=== PATIENT | female | born 1970 | race Caucasian/White ===

== ENCOUNTER 2016-12-31 16:07 | Emergency (ER) | payer OTHER ==
[2016-12-31 16:33] VITALS: O2SAT 96
--- NOTE | 2016-12-31 16:52 | ERPHSYRPT ---
- History of Present Illness Source: patient Exam Limitations: clinical condition Patient Subjective Stated Complaint: "i twisted funny yesterday. i have been having more pain since. i had an mri done last week. i have been trying to work things out with my pain drLeyla" Triage Nursing Assessment: aox3, breathing easy unalbored,skin pink warm dry, slow limping gait noted, +2 bilat pedal pulses, <3 cap refill, Physician History: Patient with history of chronic low-back pain twisted over the past couple days with severe pain shooting down her right buttocks lower back area into her leg and ankle with difficulty ambulating. Patient is already seen by pain management Dr. Guillaume in [facility]. MRI completed yesterday at our hospital with findings of new L4-5 large extradural defect with nerve root impingement which certainly explains her radicular symptomatology on the right side. No loss of bowel or bladder control. Timing/Duration: today, yesterday, worse Method of Injury: twisted Quality: burning, radiating, sharp, aching, cramping, stabbing Back Pain Location: lumbar spine, paraspinous muscles Back Pain Radiation: buttocks, lower legs, feet Severity of Pain-Max: severe Severity of Pain-Current: severe Modifying Factors: Improves With: immobilization, movement Associated Symptoms: weakness, tingling in legs/feet, lower back pain, muscle spasms, No urinary incontinence, No loss of bowel control, No problems urinating , No light-headedness, No sensory/motor loss Previous symptoms: same symptoms as today (but not as severe) Allergies/Adverse Reactions: Sulfa (Sulfonamide Antibiotics) [Sulfa(Sulfonamide Antibiotics)] Allergy (Mild, Verified 12/31/16 16:21) Home Medications: Duloxetine HCl 30 mg [Cymbalta 30 MG Capsule] 60 mg PO DAILY 01/17/16 [ History] Lisinopril 10 mg [Zestril 10 MG] 20 mg PO DAILY 04/20/16 [History] Alprazolam 0.25 mg [xanAX 0.25 MG] 0.25 mg PO PRN 10/15/16 [History] Fexofenadine HCl [Leanna] 1 tab PO DAILY 10/15/16 [History] Ibuprofen 800 mg PO TID 10/15/16 [History] Oxycodone HCl [Oxycodone HCl ER] 30 mg PO BID 10/15/16 [History] Pregabalin [Lyrica 150Mg] 1 tab PO TID 10/15/16 [History] Diclofenac Sodium 75 mg PO BID 12/31/16 [History] Duloxetine HCl 30 mg [Cymbalta 30 MG Capsule] 60 mg PO DAILY 12/31/16 [ History] Folic Acid 800 mcg PO BID 12/31/16 [History] Oxycodone HCl 15 mg PO QID 12/31/16 [History] Hx Tetanus, Diphtheria Vaccination/Date Given: No Hx Influenza Vaccination/Date Given: Yes Hx Pneumococcal Vaccination/Date Given: No - Review of Systems Constitutional: No Symptoms Eyes: No Symptoms Ears, Nose, & Throat: No Symptoms Respiratory: No Symptoms Cardiac: No Symptoms Abdominal/Gastrointestinal: No Symptoms Genitourinary Symptoms: No Symptoms Musculoskeletal: Back Pain Skin: No Symptoms Neurological: Parasthesia Psychological: No Symptoms Endocrine: No Symptoms Hematologic/Lymphatic: No Symptoms Immunological/Allergic: No Symptoms All Other Systems: Reviewed and Negative - Past Medical History Pertinent Past Medical History: Yes Neurological History: Migraines ENT History: No Pertinent History Cardiac History: No Pertinent History Respiratory History: No Pertinent History Endocrine Medical History: No Pertinent History Musculoskeletal History: Fibromyalgia, Osteoarthritis GI Medical History: No Pertinent History History: No Pertinent History Psycho-Social History: Anxiety, Attention Deficit Disorder, Depression Female Reproductive Disorders: No Pertinent History Other Medical History: major depressive d/o, adha, ptsd, anixiety - Past Surgical History Past Surgical History: Yes Neuro Surgical History: No Pertinent History Cardiac: No Pertinent History Respiratory: No Pertinent History Gastrointestinal: No Pertinent History Genitourinary: No Pertinent History Musculoskeletal: No Pertinent History Female Surgical History: No Pertinent History Other Surgical History: D&C, Tonsillectomy - Social History Smoking Status: Current every day smoker How long have you smoked: 19 yrs Exposure to second hand smoke: No Drug Use: none Patient Lives Alone: No - Female History Hx Last Menstrual Period: 3 week ago - Nursing Vital Signs Temperature: 98.2 F Temperature Source: Oral Pulse Rate: 103 Respiratory Rate: 18 Pain Intensity: 8 - Physical Exam General Appearance: moderate distress, alert, anxiety Eye Exam: PERRL/EOMI Ears, Nose, Throat Exam: normal ENT inspection Neck Exam: normal inspection, non-tender, supple Respiratory Exam: normal breath sounds, chest tenderness Cardiovascular Exam: regular rate/rhythm, normal heart sounds, normal peripheral pulses Gastrointestinal Exam: soft, normal bowel sounds (WITH DIALYSIS MORE), tenderness Pelvic Exam: not done Rectal Exam: deferred Back Exam: vertebral tenderness (RIGHT LUMBAR), decreased range of motion ( rIGHT LUMBOSACRAL), muscle spasm (RIGHT LUMBOSACRAL), point tenderness (RIGHT LUMBOSACRAL) Extremity Exam: parasthesia, other (MARKEDLY POSITIVE STRAIGHT LEG RAISI AT 15 DEGREES WITH MARKEDLY POSITIVE LASQUE SIGN ON RIGHT, MARKEDLY PALPABLE TENDERNESS RIGHT GLUTEAL AREA LOWER LUMBAR AREA THROUGH THE THIGH AREA) Neurologic Exam: alert, oriented x 3, cooperative, sensation nml, motor deficits (DETERMINED REFLEXES ON THE RIGHT +1/4 RIGHT AND 2 OVER 4 LEFT LOWER EXTREMITIES) Skin Exam: normal color, warm, dry Lymphatic Exam: No adenopathy SpO2 Interpretation: normal SpO2: 96 Oxygen Delivery: Room Air Ordered Tests: Medication Summary Discontinued Medications Generic Name Dose Route Start Last Admin Trade Name Remi PRN Reason Stop Dose Admin Dexamethasone Sodium Phosphate 10 mg 12/31/16 16:53 12/31/16 17:02 Decadron 10mg Inj. IM 12/31/16 16:54 10 mg STAT ONE Administration Dexamethasone Sodium Phosphate Confirm 12/31/16 16:59 Decadron 10mg Inj. Administered 12/31/16 17:00 Dose 10 mg .ROUTE .STK-MED ONE Oxycodone/Acetaminophen 1 tab 12/31/16 16:56 12/31/16 17:01 Oxycodone-Acetaminophen 10-325 PO 12/31/16 16:57 1 tab STAT STA Administration Oxycodone/Acetaminophen Confirm 12/31/16 16:59 Oxycodone-Acetaminophen 10-325 Administered 12/31/16 17:00 Dose 1 tab .ROUTE .STK-MED ONE - Progress Progress: unchanged Progress Note: 12/31/16 20:37Reviewed MRI lumbar spine from yesterday with L4-5 right marked defect probable herniated disc which is a new finding for her and she is referred back to medical provider and/or pain management for further evaluation and treatment as her symptomatology is apparently becoming much worse and is documented on MRI as to the etiology at this time. Counseled pt/family regarding: diagnosis, need for follow-up, rad results - Departure Time of Disposition: 17:08 Departure Disposition: Home Clinical Impression: Subacute right lumbar radiculopathy, Herniated nucleus pulposus, L4-5 right Condition: Fair Critical Care Time: No Referrals: CELESTINE BERNARD [Primary Care Provider] - 01/01/17 Instructions: Low Back Pain, Back Pain With Sciatica Additional Instructions: You have a serious pinched nerve in her low back between L4-5 causing pain in the low back area on the right with radiation down the leg. Please follow-up with your primary care doctor Lara or pain management physician as soon as possible for further evaluation and treatment. Return to emergency room for loss of bowel or bladder control new severe weakness in your right leg fever chills or any significant concerns or issues.
[2016-12-31] MEDS ORDERED: DECADRON 10MG INJ. IM ONE (16:53)
[2016-12-31] MEDS ORDERED: OXYCODONE-ACETAMINOPHEN 10-325 PO STA (16:56)
[2016-12-31] MEDS ORDERED: DECADRON 10MG INJ. ONE (16:59)
[2016-12-31] MEDS ORDERED: OXYCODONE-ACETAMINOPHEN 10-325 ONE (16:59)
[2016-12-31 17:07] VITALS: BP 168/98
[2016-12-31 17:10] VITALS: PULSE 103
== END 2016-12-31 17:45 | disposition home or self-care (01) ==
LOC: ED 16:07
DX: M54.16 Radiculopathy, lumbar region (principal); M51.26 Other intervertebral disc displacement, lumbar region; M54.5 Low back pain; G89.29 Other chronic pain; X50.9XXA Other and unspecified overexertion or strenuous movements or postures, initial encounter
CPT/HCPCS: 96372; 99283; 99284; J1100

== ENCOUNTER 2017-01-29 18:34 | Emergency (ER) | payer OTHER ==
[2017-01-29] MEDS ORDERED: TORAdol 30 mg Injection IM ONE (19:28)
[2017-01-29] MEDS ORDERED: TORAdol 30 mg Injection ONE (19:33)
--- NOTE | 2017-01-29 19:34 | ERPHSYRPT ---
- History of Present Illness Time Seen by Provider: 01/29/17 19:27 Source: patient Exam Limitations: no limitations Patient Subjective Stated Complaint: pt oc chronic back pain to lower back. she sees a pain dr, and is out of break through pain medication Triage Nursing Assessment: pt denies any injury, no brusing or abrasions to back ,. pt walked in bent over, moves all ext Physician History: 46 year old white female arrives with complaint of ran out of break through medicine for chronic pain states pain right low lumbar area for 2 years no change in pain, no injuries, on fentanil oxycontin and oxycodone for pain ran out of oxycodone wearing fentanyl patch now. Timing/Duration: other (for 2 yearsran out of break through pain med) Method of Injury: unknown Quality: aching Back Pain Location: lumbar spine Severity of Pain-Max: moderate Severity of Pain-Current: moderate Modifying Factors: Improves With: nothing Associated Symptoms: lower back pain, No fever, No chills, No sweating, No urinary incontinence, No loss of bowel control, No constipation, No nausea, No vomiting, No problems urinating, No light-headedness, No dizziness, No numbness in legs/feet, No weakness, No sensory/motor loss, No tingling in legs/feet Allergies/Adverse Reactions: Sulfa (Sulfonamide Antibiotics) [Sulfa(Sulfonamide Antibiotics)] Allergy (Mild, Verified 01/29/17 18:41) Home Medications: Lisinopril 10 mg [Zestril 10 MG] 20 mg PO DAILY 04/20/16 [History] Alprazolam 0.25 mg [xanAX 0.25 MG] 0.25 mg PO DAILY 10/15/16 [History] Fexofenadine HCl [Leanna] 1 tab PO DAILY 10/15/16 [History] Ibuprofen 800 mg PO TID 10/15/16 [History] Oxycodone HCl [Oxycodone HCl ER] 30 mg PO BID 10/15/16 [History] Pregabalin [Lyrica 150Mg] 1 tab PO TID 10/15/16 [History] Diclofenac Sodium 75 mg PO BID 12/31/16 [History] Duloxetine HCl 30 mg [Cymbalta 30 MG Capsule] 60 mg PO DAILY 12/31/16 [ History] Folic Acid 800 mcg PO BID 12/31/16 [History] Oxycodone HCl 15 mg PO QID 12/31/16 [History] Fentanyl 1 ea 2XW 01/29/17 [History] Hx Tetanus, Diphtheria Vaccination/Date Given: No Hx Influenza Vaccination/Date Given: Yes Hx Pneumococcal Vaccination/Date Given: No Immunizations Up to Date: Yes - Review of Systems Constitutional: No Fever, No Chills Eyes: No Symptoms Ears, Nose, & Throat: No Symptoms Respiratory: No Cough, No Dyspnea Cardiac: No Chest Pain, No Edema, No Syncope Abdominal/Gastrointestinal: No Abdominal Pain, No Nausea, No Vomiting, No Diarrhea Genitourinary Symptoms: No Dysuria Musculoskeletal: Back Pain, No Neck Pain Skin: No Rash Neurological: No Dizziness, No Focal Weakness, No Sensory Changes Psychological: No Symptoms Endocrine: No Symptoms All Other Systems: Reviewed and Negative - Past Medical History Pertinent Past Medical History: Yes Neurological History: Migraines ENT History: No Pertinent History Cardiac History: No Pertinent History Respiratory History: No Pertinent History Endocrine Medical History: No Pertinent History Musculoskeletal History: Fibromyalgia, Osteoarthritis, Other GI Medical History: No Pertinent History History: No Pertinent History Psycho-Social History: Anxiety, Attention Deficit Disorder, Depression Female Reproductive Disorders: No Pertinent History Other Medical History: major depressive d/o, adha, ptsd, anixiety,chronic back pain - Past Surgical History Past Surgical History: Yes Neuro Surgical History: No Pertinent History Cardiac: No Pertinent History Respiratory: No Pertinent History Gastrointestinal: No Pertinent History Genitourinary: No Pertinent History Musculoskeletal: No Pertinent History Female Surgical History: No Pertinent History Other Surgical History: D&C, Tonsillectomy - Social History Smoking Status: Current some day smoker How long have you smoked: 19 yrs Exposure to second hand smoke: Yes Drug Use: none Patient Lives Alone: No - Female History Hx Last Menstrual Period: week ago - Nursing Vital Signs Temperature: 98.5 F Temperature Source: Oral Pulse Rate: 117 Respiratory Rate: 16 Pain Intensity: 8 - Physical Exam General Appearance: mild distress Eye Exam: PERRL/EOMI, eyes nml inspection Ears, Nose, Throat Exam: normal ENT inspection, TMs normal, pharynx normal, moist mucous membranes, No dry mucous membranes, No TM abnormal (R), No TM abnormal (L) Neck Exam: normal inspection, non-tender, supple, full range of motion, No meningismus, No midline tenderness Respiratory Exam: normal breath sounds, lungs clear, No respiratory distress Cardiovascular Exam: regular rate/rhythm, normal heart sounds Gastrointestinal Exam: soft, No tenderness, No mass Back Exam: other (tender with palpation right low lumbar area, able to sit with knees extended and hips flexed without problems) Extremity Exam: normal inspection, normal range of motion, No calf tenderness, No pedal edema Peripheral Pulses: dorsalis-pedis (R): 2+, dorsalis-pedis (L): 2+ Neurologic Exam: alert, oriented x 3, cooperative, 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 as tested, normal mood/affect, nml station & gait, sensation nml, No motor deficits Skin Exam: normal color, warm, dry, No rash SpO2 Interpretation: normal (98%) SpO2: 98 Oxygen Delivery: CPAP - Course Nursing assessment & vital signs reviewed: Yes Ordered Tests: Medication Summary Discontinued Medications Generic Name Dose Route Start Last Admin Trade Name Remi PRN Reason Stop Dose Admin Ketorolac Tromethamine 60 mg 01/29/17 19:28 01/29/17 19:34 Toradol 30 Mg Injection IM 01/29/17 19:29 60 mg STAT ONE Administration Ketorolac Tromethamine Confirm 01/29/17 19:33 Toradol 30 Mg Injection Administered 01/29/17 19:34 Dose 60 mg .ROUTE .STK-MED ONE - Progress Progress: improved Progress Note: 01/29/17 19:38 This is a 46-year-old white female history of chronic back pain who states she has degenerative disc disease she states she has had pain in her back for 2 years this is not changed she states she has been talked to by a back pain specialist who has recommended surgery but she does not want to have this done she sees a pain commercial pest control technician. She states that she is here because she ran out of her breakthrough pain medication. Patient has not had any injuries she states she just use more of her breakthrough pain medication than she normally should. She has pain in her right low lumbar region radiating to her right bladder oxycodone denies any fever she is not having any neurologic changes she is able to sit with her hips flexed and her knees extended without pain. She tells me that she contacted her pain medicine specialist who is in [place] and he recommended she go to the emergency room for treatment. On physical examination patient is tender in the right lumbar region with palpation. Patient has a fentanyl patch in place. Inspect report is reviewed on January 26, 2017 patient received OxyContin 30 mg tablet #60 on January 20, 2017 patient received fentanyl 50 g patch per hour # 5 patches on January 08, 2017 patient received Xanax 0.25 mg tablet #30 on January 05 patient received oxycodone 15 mg tablet #120 on January 04 patient received oxycodone 10/325 #15 on January 01 patient received Lyrica 150 mg capsules #90 on December 30 patient received OxyContin 30 mg tablets #60 patient appears to have been receiving pain medication on a regular basis. I am uncomfortable providing this patient with more narcotic analgesia. I told patient I could give her 1 Percocet tablet or Toradol 60 mg IM and have patient follow-up with her pain commercial pest control technician or her family doctor Patient states she has fentanyl patches which are remaining she also has OxyContin tablets she states she has taken all her oxycodone however she received 120 these on January 05, 2017 which should have lasted her 30 days. - Departure Time of Disposition: 19:42 Departure Disposition: Home Clinical Impression: History of degenerative disc disease Chronic back pain Qualifiers: Back pain location: low back pain Back pain laterality: right Sciatica presence : unspecified whether sciatica present Qualified Code(s): M54.5 - Low back pain Condition: Fair Critical Care Time: No Referrals: CELESTINE BERNARD [Primary Care Provider] - Instructions: Low Back Pain Additional Instructions: Return home. Rest. Follow-up with your family doctor or your pain commercial pest control technician. Return for acute distress or for severe symptoms Narcotic analgesia as provided by your pain commercial pest control technician other medications as provided by your family doctor or your pain commercial pest control technician.
[2017-01-29 19:40] VITALS: BP 162/96
[2017-01-29 19:43] VITALS: PULSE 117; O2SAT 98
== END 2017-01-29 20:00 | disposition home or self-care (01) ==
LOC: ED 18:34
DX: M54.5 Low back pain (principal); M51.36 Other intervertebral disc degeneration, lumbar region
CPT/HCPCS: 96372; 99284; J1885

== ENCOUNTER 2017-04-24 18:44 | Emergency (ER) | payer OTHER ==
[2017-04-24 19:00] VITALS: BP 149/88
[2017-04-24] MEDS ORDERED: KEFLEX 500 MG PO ONE (19:25)
[2017-04-24] MEDS ORDERED: KEFLEX 500 MG ONE (19:29)
--- NOTE | 2017-04-24 19:33 | ERPHSYRPT ---
- History of Present Illness Time Seen by Provider: 04/24/17 19:15 Source: patient Exam Limitations: clinical condition Patient Subjective Stated Complaint: Pt is here for wound check of incision. States she had back surgery three weeks ago and thinks the incision is infected. She is having a lot of incisional pain and it has had a thick, whitish/yellow drainage the last couple of days. States it is sometimes hot to touch. Triage Nursing Assessment: Pt alert and oriented x3. skin pink warm and dry. afebrile. incision noted to lower back. dried drainage noted. erythema noted to upper portion Physician History: PATIENT IS 3 WEEKS POST OPERATIVE LUMBAR SPINAL FUSION, HAS NOTED DRAINAGE FROM INCISIONAL SITE. PATIENT HAS CHRONIC BACK PAIN, DENIES FEVER, CHILLS, NIGHTSWEATS, NUMBNESS, TINGLING OR WEAKNESS IN EXTREMITIES. Timing/Duration: day(s) Severity: mild Associated Symptoms: other (DRAINAGE FROM INCISIONAL WOUND) Allergies/Adverse Reactions: No Known Drug Allergies Allergy (Unverified 04/24/17 19:01) Home Medications: Lisinopril 10 mg [Zestril 10 MG] 20 mg PO DAILY 04/20/16 [History] Fexofenadine HCl [Leanna] 1 tab PO DAILY 10/15/16 [History] Ibuprofen 800 mg PO TID 10/15/16 [History] Oxycodone HCl [Oxycodone HCl ER] 40 mg PO BID 10/15/16 [History] Pregabalin [Lyrica 150Mg] 1 tab PO TID 10/15/16 [History] Duloxetine HCl 30 mg [Cymbalta 30 MG Capsule] 90 mg PO DAILY 12/31/16 [ History] Folic Acid 800 mcg PO BID 12/31/16 [History] Oxycodone HCl 20 mg PO QID 12/31/16 [History] Diazepam 5 mg [Valium 5 MG] 5 mg PO BID 04/24/17 [History] Hx Tetanus, Diphtheria Vaccination/Date Given: Yes Hx Influenza Vaccination/Date Given: Yes Hx Pneumococcal Vaccination/Date Given: No - Review of Systems Constitutional: No Symptoms Musculoskeletal: Back Pain, Other (INCISIONAL WOUND DRAINAGE) Neurological: No Symptoms Endocrine: No Symptoms - Past Medical History Pertinent Past Medical History: Yes Neurological History: Migraines ENT History: No Pertinent History Cardiac History: No Pertinent History Respiratory History: No Pertinent History Endocrine Medical History: No Pertinent History Musculoskeletal History: Fibromyalgia, Osteoarthritis, Other GI Medical History: No Pertinent History History: No Pertinent History Psycho-Social History: Anxiety, Attention Deficit Disorder, Depression Female Reproductive Disorders: No Pertinent History Other Medical History: major depressive d/o, adha, ptsd, anixiety,chronic back pain, ruptured disc, synovial cyst - Past Surgical History Past Surgical History: Yes Neuro Surgical History: No Pertinent History Cardiac: No Pertinent History Respiratory: No Pertinent History Gastrointestinal: No Pertinent History Genitourinary: No Pertinent History Musculoskeletal: Orthopedic Surgery Female Surgical History: Dilation & Curettage Other Surgical History: lumbar spinal fusion, synovial cyst removed - Social History Smoking Status: Current some day smoker How long have you smoked: 19 yrs Exposure to second hand smoke: Yes Drug Use: none Patient Lives Alone: Yes - Female History Hx Last Menstrual Period: February 2017 - Nursing Vital Signs Nursing Vital Signs: Initial Vital Signs Temperature 98.3 F Temperature Source Oral Pulse Rate 94 Blood Pressure [Right Arm] 149/88 Pain Intensity 7 - Physical Exam General Appearance: no apparent distress, alert Respiratory Exam: No respiratory distress Gastrointestinal/Abdomen Exam: No tenderness, No mass Back Exam: normal inspection, normal range of motion, other (LUMBAR INCISIONAL EDGES INTACT NO ERYTHEMA, THERE IS DRIED CRUSTY EXUDATE ALONG INCISIONAL SITE, NO OPEN SITES OR DRAINAGE ALONG INCISIONAL WOUND), No CVA tenderness, No vertebral tenderness (THERE IS SLIGHT ERYTHEMA NOTED OVER SUPERIOR ASPECT OF INCISIONAL WOUND) Neurologic Exam: alert, oriented x 3, cooperative, normal mood/affect, nml cerebellar function, nml station & gait, sensation nml, No motor deficits Skin Exam: normal color, warm, dry, No rash Lymphatic Exam: No adenopathy SpO2 Interpretation: normal SpO2: 94 Oxygen Delivery: Room Air Ordered Tests: Active Orders 24 hr Category Date Time Status CULTURE,WOUND Stat Lab 04/24/17 19:26 Uncollected Medication Summary Generic Name Dose Route Start Last Admin Trade Name Freq PRN Reason Stop Dose Admin Cephalexin HCl 500 mg 04/24/17 19:25 Keflex 500 Mg PO 04/24/17 19:26 STAT ONE - Progress Progress Note: 04/24/17 19:37 WOUND CULTURE SENT, HOWEVER THERE WAS NO EVIDENCE OF DRAINAGE Counseled pt/family regarding: diagnosis, need for follow-up - Departure Time of Disposition: 19:40 Departure Disposition: Home Clinical Impression: LUMBAR INCISIONAL WOUND/EARLY CELLULITIS Condition: Stable Critical Care Time: No Additional Instructions: ANTIBIOTIC KEFLEX 500MG EVERY 6 HOURS FOR 10 DAYS. CHECK FOR FEVER THROUGHOUT THE DAY. CALL YOUR SPINAL SURGEON FOR EARLIER APPOINTMENT. RETURN TO EMERGENCY FOR ONSET OF FEVER OR CHILLS. Prescriptions: Cephalexin Mh 500 mg [Keflex 500 mg] 500 mg PO QID #40 capsule
[2017-04-24 19:56] VITALS: PULSE 88; O2SAT 97
== END 2017-04-24 19:54 | disposition home or self-care (01) ==
LOC: ED 18:44
DX: T81.4XXA Infection following a procedure, initial encounter (principal); L03.312 Cellulitis of back [any part except buttock and flank]
CPT/HCPCS: 87070; 99283; A9270-GY

== ENCOUNTER 2017-06-15 20:21 | Emergency (ER) | payer OTHER, SELFPAY ==
[2017-06-15] MEDS ORDERED: XYLOCAINE 1% HCL 20 ML MDV IJ ONE (20:28)
[2017-06-15] MEDS ORDERED: XYLOCAINE 1% HCL 20 ML MDV ONE (20:29)
[2017-06-15] MEDS ORDERED: BACIGUENT PACKET TP ONE (20:40)
[2017-06-15] MEDS ORDERED: Adacel Vial IM ONE ×2 (20:40→20:47)
--- NOTE | 2017-06-15 20:46 | ERPHSYRPT ---
- History of Present Illness Time Seen by Provider: 06/15/17 20:26 Source: patient Patient Subjective Stated Complaint: Pt sts that she was using a kitchen knife and cut the tip of her left thumb. Pt sts this happened a few hours ago. She attemptd to use liquid bandaid but sts it did not work. Pt usnure of last tetanus shot. Sts pain in thumb is 3/10. Triage Nursing Assessment: Pt alert, oriented, answers all questions appropriately. SKin p/w/d, resps non-labored. Pt ambulatory to tx room steady gait noted. Cut noted to pts left thumb approx 13 mm in length. Well approximated. No active bleeding noted. Nail intact. Physician History: CC: finger cut Hx: 47 y/o patient of Dr Nielsen. She cut her left thumb on a knife at home. Unsure last tetanus vaccine. No other injuries. No N/T/W. Extremities Pain Location: thumb: left Allergies/Adverse Reactions: No Known Drug Allergies Allergy (Verified 06/15/17 20:25) Home Medications: Lisinopril 10 mg [Zestril 10 MG] 20 mg PO DAILY 04/20/16 [History] Fexofenadine HCl [Leanna] 1 tab PO DAILY 10/15/16 [History] Ibuprofen 800 mg PO TID 10/15/16 [History] Oxycodone HCl [Oxycodone HCl ER] 40 mg PO BID 10/15/16 [History] Pregabalin [Lyrica 150Mg] 1 tab PO TID 10/15/16 [History] Duloxetine HCl 30 mg [Cymbalta 30 MG Capsule] 90 mg PO DAILY 12/31/16 [ History] Oxycodone HCl 20 mg PO QID 12/31/16 [History] Hx Tetanus, Diphtheria Vaccination/Date Given: No Hx Influenza Vaccination/Date Given: Yes Hx Pneumococcal Vaccination/Date Given: No - Review of Systems Constitutional: No Symptoms Neurological: No Focal Weakness, No Parasthesia - Past Medical History Pertinent Past Medical History: Yes Neurological History: Migraines ENT History: No Pertinent History Cardiac History: Hypertension Respiratory History: No Pertinent History Endocrine Medical History: No Pertinent History Musculoskeletal History: Fibromyalgia, Osteoarthritis GI Medical History: No Pertinent History History: No Pertinent History Psycho-Social History: Anxiety, Attention Deficit Disorder, Depression Female Reproductive Disorders: No Pertinent History Other Medical History: major depressive d/o, adhd, ptsd, anxiiety,chronic back pain, ruptured disc, synovial cyst - Past Surgical History Past Surgical History: Yes Neuro Surgical History: No Pertinent History Cardiac: No Pertinent History Respiratory: No Pertinent History Gastrointestinal: No Pertinent History Genitourinary: No Pertinent History Musculoskeletal: Orthopedic Surgery Female Surgical History: Dilation & Curettage Other Surgical History: lumbar spinal fusion, synovial cyst removed - Social History Smoking Status: Current every day smoker How long have you smoked: 20 years Exposure to second hand smoke: No Drug Use: none Patient Lives Alone: Yes - Female History Hx Last Menstrual Period: 3 weeks ago - Nursing Vital Signs Nursing Vital Signs: Initial Vital Signs Temperature 98.2 F 06/15/17 20:28 Pulse Rate 102 H 06/15/17 20:28 Respiratory Rate 16 06/15/17 20:28 Blood Pressure 139/112 06/15/17 20:28 O2 Sat by Pulse Oximetry 97 06/15/17 20:28 Pain Scale Pain Intensity 3 - Physical Exam General Appearance: alert Neck Exam: supple Cardiovascular/Respiratory Exam: regular rate/rhythm Neuro/Tendon Exam: normal sensation, normal motor functions Mental Status Exam: alert, oriented x 3, cooperative Skin Exam: warm, dry SpO2: 97 Oxygen Delivery: Room Air Comments: 2 cm laceration on distal left thumb. No nail involvement. No nerve involvement. This is distal. Procedures - Laceration/Wound Repair left thumb Wound Length (cm): 2 Wound's Depth, Shape: linear (distal thumb and pad) Wound Explored: no foreign body noted (glue was washed off) Irrigated: Yes (sink) Hibiclens Prep: Yes Anesthesia: digital block, 1% Lidocaine Volume Anesthetic (ccs): 2 Wound Repaired With: sutures Suture Size/Type: 4-0, nylon Number of Sutures: 3 Sterile Dressing Applied?: Yes Progress: 06/15/17 21:04 Wound care instr given. - Course Nursing assessment & vital signs reviewed: Yes Ordered Tests: Active Orders 24 hr Category Date Time Status Prepare for Sutures STAT Care 06/15/17 20:28 Active Sutures STAT Care 06/15/17 20:29 Active Wound Care STAT Care 06/15/17 20:28 Active Medication Summary Discontinued Medications Generic Name Dose Route Start Last Admin Trade Name Freq PRN Reason Stop Dose Admin Bacitracin 0.9 gm 06/15/17 20:40 Baciguent Packet TP 06/15/17 20:41 STAT ONE Bacitracin Confirm 06/15/17 20:47 Baciguent Packet Administered 06/15/17 20:48 Dose 1 gm .ROUTE .STK-MED ONE Diphtheria/Tetanus/Acell Pertussis 0.5 ml 06/15/17 20:40 06/15/17 20:49 Adacel Vial IM 06/15/17 20:41 0.5 ml .ONCE ONE Administration Diphtheria/Tetanus/Acell Pertussis Confirm 06/15/17 20:47 Adacel Vial Administered 06/15/17 20:48 Dose 0.5 ml IM .STK-MED ONE Lidocaine HCl 5 ml 06/15/17 20:28 06/15/17 20:36 Xylocaine 1% Hcl 20 Ml Mdv IJ 06/15/17 20:29 5 ml STAT ONE Administration Lidocaine HCl Confirm 06/15/17 20:29 Xylocaine 1% Hcl 20 Ml Mdv Administered 06/15/17 20:30 Dose 1 ml .ROUTE .STK-MED ONE - Departure Time of Disposition: 21:04 Departure Disposition: Home Clinical Impression: Laceration of thumb Qualifiers: Encounter type: initial encounter Damage to nail status: without damage Foreign body presence: without foreign body Laterality: left Qualified Code(s): S61.012A - Laceration without foreign body of left thumb without damage to nail , initial encounter Condition: Stable Critical Care Time: No Referrals: CELESTINE NIELSEN [Primary Care Provider] - Instructions: Care for a Laceration After Repair Additional Instructions: LACERATION CARE 1. Do not use peroxide, merthiolate, alcohol, or betadine. 2. Keep wound clean and dry. 3. Change dressing if it becomes wet or soiled. 4. If you must work, wear protective covering. 5. You may return to the emergency department or see your family physician for suture removal. 6. See your family physician or return to the emergency department for any of the following signs or symptoms: A. Redness B. Swelling C. Discolored drainage D. Red streaks E. Elevated temperature F. Other signs of infection Suture removal in 10 days.
[2017-06-15] MEDS ORDERED: BACIGUENT PACKET ONE (20:47)
[2017-06-15 21:15] VITALS: BP 154/109; PULSE 90; O2SAT 99
== END 2017-06-15 21:16 | disposition home or self-care (01) ==
LOC: ED 20:21
PROC: 0HQGXZZ Repair Left Hand Skin, External Approach (ICD-10-PCS; principal; 2017-06-15)
DX: S61.012A Laceration without foreign body of left thumb without damage to nail, initial encounter (principal); W26.0XXA Contact with knife, initial encounter; I10 Essential (primary) hypertension
CPT/HCPCS: 12001; 90471; 90715; 99284; A9270-GY

== ENCOUNTER 2017-08-13 20:41 | Emergency (ER) | payer OTHER, SELFPAY ==
[2017-08-13] MEDS ORDERED: Phenergan 25 MG INJ IM ONE (21:11)
[2017-08-13] MEDS ORDERED: Hydromorphone 1 mg/ml Ampule IM ONE (21:11)
--- NOTE | 2017-08-13 21:17 | ERPHSYRPT ---
- History of Present Illness Time Seen by Provider: 08/13/17 21:01 Source: patient Exam Limitations: no limitations Patient Subjective Stated Complaint: PT STATES 4 MONTHS AGO SHE HAD BACK SURGERY AND STATES HER GRAFT HAS MOVED. REPORTS SHE IS ALREADY SCHEDULED TO HAVE IT TAKEN OUT 08/25/17. BEGAN HAVING SEVERE PAIN TWO WEEKS AGO. STATES HER HOME PAIN MEDS ARE NOT WORKING TO CONTROL PAIN. PT ALSO REPORTS SHE IS TAKING ABX FOR A SINUS INFECTION. Triage Nursing Assessment: PT IS AOX3, PUPILS PERRL, RESPS ARE EASY AND NON LABORED, SKIN IS PINK WARM AND DRY. RADIAL PULSES ARE STRONG AND EQUAL. PT REPORTS PAIN TO THE LUMBAR REGION THAT RADIATES DOWN THE ENTIRE RIGHT LEG. PAIN TO R LEG IS DESCRIBED "PINS AND NEEDLES" SENSATION TO BILAT EXTREMITIES INTACT. PEDAL PULSES STRONG AND EQUAL BILAT. Physician History: PT C/O RIGHT LOWER BACK PAIN RADIATING TO THE RIGHT FOOT FOR THE PAST 2 WEEKS, WORSE TODAY. PT DENIES RECENT INJURY. PT HAD A GRAFT PLACED [address] GAVIRIA(NEUROSURGEON) IN [place] AND IS DUE FOR REMOVAL ON 08/25/17. PT DENIES CHEST PAIN, SHORTNESS OF AIR, ABDOMINAL PAIN, VOMITING. Allergies/Adverse Reactions: No Known Drug Allergies Allergy (Verified 08/13/17 20:58) Home Medications: Lisinopril 10 mg [Zestril 10 MG] 20 mg PO DAILY 04/20/16 [History] Fexofenadine HCl [Leanna] 1 tab PO DAILY 10/15/16 [History] Ibuprofen 800 mg PO TID 10/15/16 [History] Oxycodone HCl [Oxycodone HCl ER] 40 mg PO BID 10/15/16 [History] Pregabalin [Lyrica 150Mg] 1 tab PO TID 10/15/16 [History] Duloxetine HCl 30 mg [Cymbalta 30 MG Capsule] 90 mg PO DAILY 12/31/16 [ History] Oxycodone HCl 20 mg PO QID 12/31/16 [History] Solifenacin Succinate [Vesicare] 10 mg PO DAILY 08/13/17 [History] Tizanidine HCl 2 mg PO TID 08/13/17 [History] Hx Tetanus, Diphtheria Vaccination/Date Given: Yes Hx Influenza Vaccination/Date Given: No Hx Pneumococcal Vaccination/Date Given: No Immunizations Up to Date: Yes - Review of Systems Musculoskeletal: Back Pain (RADIATING TO THE RIGHT FOOT) - Past Medical History Pertinent Past Medical History: Yes Neurological History: Migraines ENT History: No Pertinent History Cardiac History: Hypertension Respiratory History: No Pertinent History Endocrine Medical History: No Pertinent History Musculoskeletal History: Fibromyalgia, Osteoarthritis GI Medical History: No Pertinent History History: No Pertinent History Psycho-Social History: Anxiety, Attention Deficit Disorder, Depression Female Reproductive Disorders: No Pertinent History Other Medical History: major depressive d/o, adhd, ptsd, anxiiety,chronic back pain, ruptured disc, synovial cyst - Past Surgical History Past Surgical History: Yes Neuro Surgical History: No Pertinent History Cardiac: No Pertinent History Respiratory: No Pertinent History Gastrointestinal: No Pertinent History Genitourinary: No Pertinent History Musculoskeletal: Orthopedic Surgery Female Surgical History: Dilation & Curettage Other Surgical History: lumbar spinal fusion, synovial cyst removed - Social History Smoking Status: Current every day smoker How long have you smoked: 1/2 Exposure to second hand smoke: No Drug Use: none Patient Lives Alone: Yes - Female History Hx Last Menstrual Period: 07/30/17 - Nursing Vital Signs Nursing Vital Signs: Initial Vital Signs Temperature 98.1 F 08/13/17 20:45 Pulse Rate 95 H 08/13/17 20:45 Respiratory Rate 20 08/13/17 20:45 Blood Pressure 179/111 08/13/17 20:45 O2 Sat by Pulse Oximetry 96 08/13/17 20:45 Pain Scale Pain Intensity 8 - Physical Exam General Appearance: moderate distress, alert Eye Exam: PERRL/EOMI Ears, Nose, Throat Exam: TMs normal, pharynx normal, moist mucous membranes Neck Exam: normal inspection Respiratory Exam: lungs clear Cardiovascular Exam: normal heart sounds Gastrointestinal Exam: soft, normal bowel sounds Back Exam: normal range of motion, other (MINIMAL RIGHT LOWER BACK TENDERNESS( PAIN MOSTLY INSIDE)), No vertebral tenderness Extremity Exam: normal range of motion, No pedal edema Peripheral Pulses: dorsalis-pedis (R): 3+, dorsalis-pedis (L): 3+ Neurologic Exam: alert, cooperative, sensation nml, No motor deficits Skin Exam: warm, dry SpO2 Interpretation: normal SpO2: 96 Oxygen Delivery: Room Air - Course Nursing assessment & vital signs reviewed: Yes Ordered Tests: Medication Summary Generic Name Dose Route Start Last Admin Trade Name Remi PRN Reason Stop Dose Admin Hydromorphone HCl 2 mg 08/13/17 21:11 Hydromorphone 1 Mg/Ml Ampule IM 08/13/17 21:12 STAT ONE Promethazine HCl 25 mg 08/13/17 21:11 Phenergan 25 Mg Inj IM 08/13/17 21:12 STAT ONE - Departure Time of Disposition: 21:19 Departure Disposition: Home Clinical Impression: SCIATICA Condition: Stable Critical Care Time: No Referrals: CELESTINE BERNARD [Primary Care Provider] - Instructions: Back Pain With Sciatica Additional Instructions: FOLLOW UP WITH PRIVATE DOCTOR TOMORROW.
[2017-08-13] MEDS ORDERED: Phenergan 25 MG INJ ONE (21:19)
[2017-08-13] MEDS ORDERED: Hydromorphone 1 mg/ml Ampule ONE (21:20)
[2017-08-13] MEDS ORDERED: TORAdol 30 mg Injection IM ONE (21:48)
[2017-08-13] MEDS ORDERED: TORAdol 30 mg Injection ONE (21:52)
[2017-08-13 22:04] VITALS: O2SAT 97
[2017-08-13 22:19] VITALS: BP 150/71; PULSE 88
== END 2017-08-13 22:18 | disposition home or self-care (01) ==
LOC: ED 20:41
DX: M54.30 Sciatica, unspecified side (principal)
CPT/HCPCS: 96372; 99283; 99284; J1170; J1885; J2550

== ENCOUNTER 2017-12-27 20:12 | Emergency (ER) | payer OTHER ==
[2017-12-27] MEDS ORDERED: TORAdol 30 mg Injection IV ONE (20:31)
[2017-12-27] MEDS ORDERED: Phenergan 25 MG INJ IV ONE (20:31)
[2017-12-27] MEDS ORDERED: Sodium Chloride 0.9% 1000 ML 1,000 ML IV STA (20:31)
--- NOTE | 2017-12-27 20:34 | ERPHSYRPT ---
- History of Present Illness Time Seen by Provider: 12/27/17 20:26 Historian: patient Exam Limitations: no limitations Patient Subjective Stated Complaint: Flank Pain Triage Nursing Assessment: Pt presents to the ED with complaints of lower back pain, radiation into abdomin. Pt states onset "a couple of weeks ago" but states worsening x2 hours. Pt states hx of kidney stone, being treated for kidney stones by PCP. Physician History: FOR THE PAST 2 WEEKS PT HAS HAD SHARP LEFT SIDED FLANK PAIN/PRESSURE AND HAS HAD DAILY KIDNEY STONES WITH NAUSEA AND THIS AM DIARRHEA WITHOUT BLOOD. PT DENIES CHEST PAIN, SHORTNESS OF AIR, FEVER. Allergies/Adverse Reactions: No Known Drug Allergies Allergy (Verified 08/13/17 20:58) Home Medications: Lisinopril 10 mg [Zestril 10 MG] 20 mg PO DAILY 04/20/16 [History] Fexofenadine HCl [Leanna] 1 tab PO DAILY 10/15/16 [History] Ibuprofen 800 mg PO TID 10/15/16 [History] Oxycodone HCl [Oxycodone HCl ER] 40 mg PO BID 10/15/16 [History] Pregabalin [Lyrica 150Mg] 1 tab PO TID 10/15/16 [History] Duloxetine HCl 30 mg [Cymbalta 30 MG Capsule] 90 mg PO DAILY 12/31/16 [ History] Solifenacin Succinate [Vesicare] 10 mg PO DAILY 08/13/17 [History] Tizanidine HCl 2 mg PO TID 08/13/17 [History] Cholecalciferol (Vitamin D3) [Vitamin D3] 5,000 unit PO DAILY 12/27/17 [History] Oxycodone HCl/Acetaminophen [Percocet 10-325 mg Tablet] 1 each PO QID PRN [History] Tamsulosin HCl 0.4 mg [Flomax 0.4 MG] 0.4 mg PO DAILY 12/27/17 [History] Trazodone HCl 50 mg [Desyrel 50 mg] 100 mg PO QHS 12/27/17 [History] Hx Tetanus, Diphtheria Vaccination/Date Given: Yes Hx Influenza Vaccination/Date Given: Yes Hx Pneumococcal Vaccination/Date Given: No Immunizations Up to Date: Yes - Review of Systems Constitutional: No Fever Respiratory: No Dyspnea Cardiac: No Chest Pain Abdominal/Gastrointestinal: Nausea, Diarrhea, Other (LEFT FLANK PAIN) All Other Systems: Reviewed and Negative - Past Medical History Pertinent Past Medical History: Yes Neurological History: Migraines ENT History: No Pertinent History Cardiac History: No Pertinent History, Hypertension Respiratory History: No Pertinent History Endocrine Medical History: No Pertinent History Musculoskeletal History: Arthritis, Degenerative Disk Disease, Fibromyalgia, Fractures, Osteoporosis GI Medical History: No Pertinent History History: No Pertinent History Psycho-Social History: Anxiety, Attention Deficit Disorder, Depression Female Reproductive Disorders: No Pertinent History Other Medical History: L5 compression fx at age 19. - Past Surgical History Past Surgical History: Yes Neuro Surgical History: No Pertinent History Cardiac: No Pertinent History Respiratory: No Pertinent History Gastrointestinal: No Pertinent History Genitourinary: No Pertinent History Musculoskeletal: Orthopedic Surgery Female Surgical History: Dilation & Curettage Other Surgical History: lumbar spinal fusion, synovial cyst removed - Social History Smoking Status: Current every day smoker How long have you smoked: 20 years Exposure to second hand smoke: Yes Drug Use: none Patient Lives Alone: No - Female History Hx Last Menstrual Period: 12/22/2017 Hx Now: No - Nursing Vital Signs Nursing Vital Signs: Initial Vital Signs Temperature 97.7 F 12/27/17 20:21 Pulse Rate 85 12/27/17 20:21 Respiratory Rate 18 12/27/17 20:21 Blood Pressure 115/92 12/27/17 20:21 O2 Sat by Pulse Oximetry 96 12/27/17 20:21 Pain Scale Pain Intensity 5 - Physical Exam General Appearance: alert Eye Exam: PERRL/EOMI Ears, Nose, Throat Exam: pharynx normal, moist mucous membranes Neck Exam: normal inspection Respiratory Exam: lungs clear Cardiovascular Exam: normal heart sounds Gastrointestinal/Abdomen Exam: soft, normal bowel sounds, tenderness (MILD SUPRAPUBIC TENDERNESS) Back Exam: normal range of motion Extremity Exam: normal inspection, No pedal edema Neurologic Exam: alert, cooperative Skin Exam: warm, dry SpO2 Interpretation: normal SpO2: 96 Oxygen Delivery: Room Air - Course Nursing assessment & vital signs reviewed: Yes - CT Exams Abdomen/Pelvis CT Interpretation: Discussed w/radiologist (COMPARED TO 08-16-15: STABLE NON- OBSTRUCTING LEFT RENAL MICROCALCULUS AND HEPATIC CYST. INTERVAL L4-5 FUSION AND LAMINECTOMY WITH FRACTURED RIGHT L5 PEDICLE SCREW.) Ordered Tests: Active Orders 24 hr Category Date Time Status Clean Catch Urine Specimen STAT Care 12/27/17 20:31 Active IV Insertion STAT Care 12/27/17 20:33 Active ABDOMEN AND PELVIS W/0 CONTRAS [CT] Stat Exams 12/27/17 20:32 Taken AMYLASE Stat Lab 12/27/17 20:30 Completed CBC W DIFF Stat Lab 12/27/17 20:30 Completed CMP Stat Lab 12/27/17 20:30 Completed HCG QUALITATIVE,SERUM Stat Lab 12/27/17 20:30 Completed LIPASE Stat Lab 12/27/17 20:30 Completed MAG [MAGNESIUM] Stat Lab 12/27/17 20:30 Completed UA W/RFX UR CULTURE Stat Lab 12/27/17 20:30 Completed Medication Summary Discontinued Medications Generic Name Dose Route Start Last Admin Trade Name Freq PRN Reason Stop Dose Admin Fentanyl Citrate 50 mcg 12/27/17 20:56 12/27/17 21:02 Sublimaze 100 Mcg/2 Ml IV 12/27/17 20:57 50 mcg STAT ONE Administration Fentanyl Citrate Confirm 12/27/17 21:01 Sublimaze 100 Mcg/2 Ml Administered 12/27/17 21:02 Dose 100 mcg .ROUTE .STK-MED ONE Fentanyl Citrate 100 mcg 12/27/17 21:25 12/27/17 21:32 Sublimaze 100 Mcg/2 Ml IV 12/27/17 21:26 100 mcg STAT ONE Administration Fentanyl Citrate Confirm 12/27/17 21:31 Sublimaze 100 Mcg/2 Ml Administered 12/27/17 21:32 Dose 100 mcg .ROUTE .STK-MED ONE Sodium Chloride 1,000 mls @ 999 mls/hr 12/27/17 20:31 12/27/17 20:44 Sodium Chloride 0.9% 1000 Ml IV 12/27/17 21:31 999 mls/hr .Q1H1M STA Administration Sodium Chloride Confirm 12/27/17 20:38 Sodium Chloride 0.9% 1000 Ml Administered 12/27/17 20:39 Dose 1,000 mls @ ud .ROUTE .STK-MED ONE Ketorolac Tromethamine 30 mg 12/27/17 20:31 12/27/17 20:45 Toradol 30 Mg Injection IV 12/27/17 20:32 30 mg STAT ONE Administration Ketorolac Tromethamine Confirm 12/27/17 20:38 Toradol 30 Mg Injection Administered 12/27/17 20:39 Dose 30 mg .ROUTE .STK-MED ONE Promethazine HCl 12.5 mg 12/27/17 20:31 12/27/17 20:44 Phenergan 25 Mg Inj IV 12/27/17 20:32 12.5 mg STAT ONE Administration Promethazine HCl Confirm 12/27/17 20:38 Phenergan 25 Mg Inj Administered 12/27/17 20:39 Dose 25 mg .ROUTE .STK-MED ONE Lab/Rad Data: Laboratory Result Diagrams 12/27/17 20:30 12/27/17 20:30 Laboratory Results 12/27/17 12/27/17 12/27/17 Range/Units 20:30 20:30 20:30 WBC (4.0-10.5) K/mm3 RBC (4.1-5.4) M/mm3 Hgb (12.0-16.0) gm/dl Hct (35-47) % MCV (78-100) fl MCH (26-32) pg MCHC (32-36) g/dl RDW (11.5-14.0) % Plt Count (150-450) K/mm3 MPV (6-9.5) fl Gran % (36.0-66.0) % Lymphocytes % (24.0-44.0) % Monocytes % (0.0-12.0) % Eosinophils % (0.00-5.0) % Basophils % (0.0-0.4) % Basophils # (0-0.4) Sodium 137 (136-145) mEq/L Potassium 3.3 L (3.5-5.1) mEq/L Chloride 100 (98-107) mEq/L Carbon Dioxide 27.0 (21-32) mEq/L Anion Gap 13.7 (5-15) MEQ/L BUN 16 (9-20) mg/dL Creatinine 0.83 (0.55-1.30) mg/dl Estimated GFR > 60 ML/MIN Glucose 87 (70-110) MG/DL Calcium 9.5 (8.5-10.1) mg/dL Magnesium 2.0 (1.8-2.4) mg/dL Total Bilirubin 0.10 L (0.2-1.0) mg/dL AST 11 L (15-37) U/L ALT 22 (12-78) U/L Alkaline Phosphatase 109 (46-116) U/L Serum Total Protein 8.5 H (6.4-8.2) gm/dL Albumin 4.5 (3.4-5.0) g/dL Amylase 36 (25-115) U/L Lipase 105 (73-393) U/L Serum , Qual NEGATIVE (Negative) Ur Collection Type Urine Color (YELLOW) Urine Appearance (CLEAR) Urine pH (5-6) Ur Specific [place] (1.005-1.025) Urine Protein (Negative) Urine Ketones (NEGATIVE) Urine Blood (0-5) Cory/ul Urine Nitrite (NEGATIVE) Urine Bilirubin (NEGATIVE) Urine Urobilinogen (0-1) mg/dL Ur Leukocyte Esterase (NEGATIVE) Urine Culture Reflexed (NO) Urine Glucose (NEGATIVE) mg/dL Specimen Received 12/27/17 12/27/17 Range/Units 20:30 20:30 WBC 12.1 H (4.0-10.5) K/mm3 RBC 4.53 (4.1-5.4) M/mm3 Hgb 13.6 (12.0-16.0) gm/dl Hct 42.0 (35-47) % MCV 92.7 (78-100) fl MCH 30.0 (26-32) pg MCHC 32.4 (32-36) g/dl RDW 14.5 H (11.5-14.0) % Plt Count 257 (150-450) K/mm3 MPV 12.5 H (6-9.5) fl Gran % 58.6 (36.0-66.0) % Lymphocytes % 32.3 (24.0-44.0) % Monocytes % 7.7 (0.0-12.0) % Eosinophils % 1.2 (0.00-5.0) % Basophils % 0.2 (0.0-0.4) % Basophils # 0.03 (0-0.4) Sodium (136-145) mEq/L Potassium (3.5-5.1) mEq/L Chloride (98-107) mEq/L Carbon Dioxide (21-32) mEq/L Anion Gap (5-15) MEQ/L BUN (9-20) mg/dL Creatinine (0.55-1.30) mg/dl Estimated GFR ML/MIN Glucose (70-110) MG/DL Calcium (8.5-10.1) mg/dL Magnesium (1.8-2.4) mg/dL Total Bilirubin (0.2-1.0) mg/dL AST (15-37) U/L ALT (12-78) U/L Alkaline Phosphatase (46-116) U/L Serum Total Protein (6.4-8.2) gm/dL Albumin (3.4-5.0) g/dL Amylase (25-115) U/L Lipase (73-393) U/L Serum , Qual (Negative) Ur Collection Type CLEAN CATCH Urine Color YELLOW (YELLOW) Urine Appearance CLEAR (CLEAR) Urine pH 5.0 (5-6) Ur Specific [place] 1.015 (1.005-1.025) Urine Protein NEGATIVE (Negative) Urine Ketones NEGATIVE (NEGATIVE) Urine Blood NEGATIVE (0-5) Cory/ul Urine Nitrite NEGATIVE (NEGATIVE) Urine Bilirubin NEGATIVE (NEGATIVE) Urine Urobilinogen NORMAL (0-1) mg/dL Ur Leukocyte Esterase NEGATIVE (NEGATIVE) Urine Culture Reflexed NO (NO) Urine Glucose NEGATIVE (NEGATIVE) mg/dL Specimen Received 12/27/172044 - Departure Time of Disposition: 23:02 Departure Disposition: Home Clinical Impression: LEFT FLANK PAIN, MILD HYPOKALEMIA Condition: Stable Critical Care Time: No Referrals: CELESTINE BERNARD [Primary Care Provider] - Instructions: Flank Pain Additional Instructions: FOLLOW UP WITH PRIVATE DOCTOR TOMORROW. Prescriptions: Ondansetron ODT 4 MG [Zofran Odt 4 mg] 4 mg PO Q6H PRN PRN #14 tab.rapdis PRN Reason: Nausea/Vomiting
[2017-12-27] MEDS ORDERED: Phenergan 25 MG INJ ONE (20:38)
[2017-12-27] MEDS ORDERED: TORAdol 30 mg Injection ONE (20:38)
[2017-12-27] MEDS ORDERED: Sodium Chloride 0.9% 1000 ML 1,000 ML ONE (20:38)
[2017-12-27 20:50] LABS: BASOPHIL % 0.2 % (0.0-0.4); Basophil (Absolute #) 0.03 (0-0.4); Eosinophil % 1.2 % (0.00-5.0); Eosinophil (Absolute #) 0.14 (0-0.5); Granulocyte Absolute (ANC) 7.06 (1.4-6.9); Granulocytes % 58.6 % (36.0-66.0); Hemoglobin 13.6 gm/dl (12.0-16.0); Lymphocytes % 32.3 % (24.0-44.0); Mean Cell Volume 92.7 fl (78-100); Mean Corpuscular Hgb Concent. 32.4 g/dl (32-36); Mean Platelet Volume 12.5 fl (6-9.5); Monocyte (Absolute #) 0.93 (0.0-1.3); Monocytes % 7.7 % (0.0-12.0); Platelet Count 257 K/mm3 (150-450); Red Blood Count 4.53 M/mm3 (4.1-5.4); Red Cell Distribution Width 14.5 % (11.5-14.0); White Blood Count 12.1 K/mm3 (4.0-10.5)
[2017-12-27] MEDS ORDERED: SUBLIMAZE 100 MCG/2 ML IV ONE ×2 (20:56→21:25)
[2017-12-27] MEDS ORDERED: SUBLIMAZE 100 MCG/2 ML ONE ×2 (21:01→21:31)
[2017-12-27 21:18] LABS: ALBUMIN 4.5 g/dL (3.4-5.0); ALKALINE PHOSPHATASE 109 U/L (46-116); AMYLASE 36 U/L (25-115); ANION GAP 13.7 MEQ/L (5-15); BLOOD UREA NITROGEN 16 mg/dL (9-20); CHLORIDE 100 mEq/L (98-107); Calcium 9.5 mg/dL (8.5-10.1); Creatinine 1 0.83 mg/dl (0.55-1.30); EST GLOMERULAR FILTRATION RATE > 60 ML/MIN; Glucose 87 MG/DL (70-110); LIPASE 105 U/L (73-393); Potassium 3.3 mEq/L (3.5-5.1); SGOT/AST 11 U/L (15-37); SGPT/ALT 22 U/L (12-78); SODIUM 137 mEq/L (136-145); Total Protein 8.5 gm/dL (6.4-8.2)
[2017-12-27 21:45] LABS: Appearance CLEAR (CLEAR); Bilirubin NEGATIVE (NEGATIVE); Blood NEGATIVE Ery/ul (0-5); Glucose NEGATIVE (NEGATIVE); Ketones NEGATIVE (NEGATIVE); Leukocyte Esterase NEGATIVE (NEGATIVE); Nitrite NEGATIVE (NEGATIVE); Protein,Urine Dip NEGATIVE (Negative); Specific Gravity 1.015 (1.005-1.025); Urobilinogen NORMAL mg/dL (0-1)
[2017-12-27] MEDS ORDERED: Klor Con 10 MEQ PO ONE ×2 (23:03→23:15)
[2017-12-27] MEDS ORDERED: Fluor-I-Strip/Ful-Flo OP ONE (23:06)
[2017-12-27] MEDS ORDERED: TETRACAINE 0.5% STERI-UNIT SOL OP STA (23:06)
[2017-12-27] MEDS ORDERED: Eye-Stream Solution OP ONE (23:06)
[2017-12-27 23:23] VITALS: BP 121/92; PULSE 70; O2SAT 98
--- NOTE | 2017-12-28 08:50 | XRAY ---
Indication: Left flank pain. History stones. Multiple contiguous axial images obtained through the abdomen and pelvis without contrast as ordered. Comparison: August 16, 2015. Lung bases are clear. Heart is not enlarged. Noncontrasted stomach and bowel loops appear nonobstructed. Normal appendix. No free fluid/air. Stable nonobstructing left renal micro-calculus and small hepatic cyst. Remaining liver, gallbladder, pancreas, spleen, adrenal glands, kidneys, ureters, bladder, and uterus appear unremarkable for noncontrast exam. Again minimal aortoiliac calcifications without AAA. Osseous structures intact with interval L4-L5 fusion surgery with laminectomy. The right L5 pedicle screw appears fractured. Impression: 1. Stable nonobstructing left renal micro-calculus and hepatic cyst. 2. No acute intra-abdominal/pelvic abnormalities on this noncontrast exam. 3. Interval L4-L5 fusion surgery and laminectomy. Fractured right L5 pedicle screw. CT DI 16.93
== END 2017-12-27 23:24 | disposition home or self-care (01) ==
LOC: ED 20:12
DX: R10.9 Unspecified abdominal pain (principal); E87.6 Hypokalemia; Z79.899 Other long term (current) drug therapy; R19.7 Diarrhea, unspecified
CPT/HCPCS: 36000; 36415; 74176; 80053; 81002; 82150; 83690; 83735; 84703; 85025; 96360; 96374; 96375; 96376; 99284; J1885; J2550; J3010; A9270-GY

== ENCOUNTER 2018-07-25 15:52 | Emergency (ER) | payer OTHER ==
[2018-07-25] MEDS ORDERED: TORAdol 30 mg Injection IM ONE (16:49)
--- NOTE | 2018-07-25 16:55 | ERPHSYRPT ---
- History of Present Illness Time Seen by Provider: 07/25/18 16:39 Source: patient Exam Limitations: no limitations Patient Subjective Stated Complaint: has severe pain in pelvis and right leg starting 2 days ago.. has surgery scheduled for to remove broken screw in back. able to walk with pain..staets feels like alot of pressure. denies injury Triage Nursing Assessment: alert and oriented. arrived in W/C with c/o pain in right leg and pelvis.. has a hx of back surgery where screw has been broken.. scheduled surgery for end july. now has severe pain/pressure in pelvis and right leg. denies ijury. JIMENEZ + pedal pulse present. foot warm. Physician History: 48-year-old white female with history of chronic back pain degenerative disc disease arthritis fibromyalgia arrives with complaint of pain in her back symptoms chronic but worse for the past 2 days worse with movement and radiates down her right leg. Patient states that she is scheduled for surgery to have a screw removed from her back. She denies any new injury. Patient is on oxycodone extended release 40 mg and oxycodone 20 mg. Past medical history includes arthritis, degenerative disc disease, fibromyalgia , fractures (compression fracture L5),, osteoporosis, anxiety, ADD, depression Past surgical history includes tonsillectomy, D&C, orthopedic surgery, lumbar surgery, will thank you syringocoel removed, Timing/Duration: other (chronic but worse for the past 2 weeks.) Severity: moderate Modifying Factors: Improves With: other (taking oxycodone and oxycodone er) Associated Symptoms: denies symptoms Allergies/Adverse Reactions: No Known Drug Allergies Allergy (Verified 08/13/17 20:58) Home Medications: Lisinopril 10 mg [Zestril 10 MG] 20 mg PO DAILY 04/20/16 [History] Fexofenadine HCl [Leanna] 1 tab PO DAILY 10/15/16 [History] Ibuprofen 800 mg PO TID 10/15/16 [History] Oxycodone HCl [Oxycodone HCl ER] 40 mg PO BID 10/15/16 [History] Pregabalin [Lyrica 150Mg] 1 tab PO TID 10/15/16 [History] Duloxetine HCl 30 mg [Cymbalta 30 MG Capsule] 90 mg PO DAILY 12/31/16 [ History] Solifenacin Succinate [Vesicare] 10 mg PO DAILY 08/13/17 [History] Tizanidine HCl 2 mg PO TID 08/13/17 [History] Cholecalciferol (Vitamin D3) [Vitamin D3] 5,000 unit PO DAILY 12/27/17 [History] Oxycodone HCl/Acetaminophen [Percocet 10-325 mg Tablet] 1 each PO QID PRN [History] Tamsulosin HCl 0.4 mg [Flomax 0.4 MG] 0.4 mg PO DAILY 12/27/17 [History] Trazodone HCl 50 mg [Desyrel 50 mg] 100 mg PO QHS 12/27/17 [History] Hx Tetanus, Diphtheria Vaccination/Date Given: Yes Hx Influenza Vaccination/Date Given: Yes Hx Pneumococcal Vaccination/Date Given: No - Review of Systems Constitutional: No Fever, No Chills Eyes: No Symptoms Ears, Nose, & Throat: No Symptoms Respiratory: No Cough, No Dyspnea Cardiac: No Chest Pain, No Edema, No Syncope Abdominal/Gastrointestinal: No Abdominal Pain, No Nausea, No Vomiting, No Diarrhea Genitourinary Symptoms: No Dysuria Musculoskeletal: Back Pain (back pain radiating down right leg), No Neck Pain Skin: No Rash Neurological: No Dizziness, No Focal Weakness, No Sensory Changes Psychological: No Symptoms Endocrine: No Symptoms All Other Systems: Reviewed and Negative - Past Medical History Pertinent Past Medical History: Yes Neurological History: Migraines ENT History: No Pertinent History Cardiac History: No Pertinent History, Hypertension Respiratory History: No Pertinent History Endocrine Medical History: No Pertinent History Musculoskeletal History: Arthritis, Degenerative Disk Disease, Fibromyalgia, Fractures, Osteoporosis GI Medical History: No Pertinent History History: No Pertinent History Psycho-Social History: Anxiety, Attention Deficit Disorder, Depression Female Reproductive Disorders: No Pertinent History Other Medical History: L5 compression fx at age 19. - Past Surgical History Past Surgical History: Yes Neuro Surgical History: No Pertinent History Cardiac: No Pertinent History Respiratory: No Pertinent History Gastrointestinal: No Pertinent History Genitourinary: No Pertinent History Musculoskeletal: Orthopedic Surgery Female Surgical History: Dilation & Curettage Other Surgical History: lumbar spinal fusion, synovial cyst removed - Social History Smoking Status: Current every day smoker How long have you smoked: 20 years Exposure to second hand smoke: No Drug Use: none Patient Lives Alone: No - Female History Hx Now: No - Nursing Vital Signs Nursing Vital Signs: Initial Vital Signs Temperature 97.8 F 07/25/18 16:14 Pulse Rate 84 07/25/18 16:14 Respiratory Rate 20 07/25/18 16:14 Blood Pressure 131/85 07/25/18 16:14 O2 Sat by Pulse Oximetry 98 07/25/18 16:14 Pain Scale Pain Intensity [Right] 9 Pain Intensity 9 - Physical Exam General Appearance: mild distress Eye Exam: PERRL/EOMI, eyes nml inspection Ears, Nose, Throat Exam: normal ENT inspection, TMs normal, pharynx normal, moist mucous membranes Neck Exam: normal inspection, non-tender, supple, full range of motion Respiratory Exam: normal breath sounds, lungs clear, No respiratory distress Cardiovascular Exam: regular rate/rhythm, normal heart sounds, normal peripheral pulses Gastrointestinal/Abdomen Exam: soft, normal bowel sounds, No tenderness, No mass Back Exam: other (bar back with palpation righ lumbar area) Extremity Exam: normal inspection, normal range of motion, pelvis stable Neurologic Exam: alert, oriented x 3, cooperative, mail handler assistant II-XII nml as tested, normal mood/affect, nml cerebellar function, nml station & gait, sensation nml, No motor deficits Skin Exam: normal color, warm, dry, No rash SpO2 Interpretation: normal (98%) SpO2: 98 Oxygen Delivery: Room Air Ordered Tests: Active Orders 24 hr Category Date Time Status HCG QUALITATIVE,SERUM Stat Lab 07/25/18 18:00 Completed Medication Summary Discontinued Medications Generic Name Dose Route Start Last Admin Trade Name Remi PRN Reason Stop Dose Admin Ketorolac Tromethamine 60 mg 07/25/18 16:49 07/25/18 16:59 Toradol 30 Mg Injection IM 07/25/18 16:50 60 mg STAT ONE Administration Ketorolac Tromethamine Confirm 07/25/18 16:58 Toradol 30 Mg Injection Administered 07/25/18 16:59 Dose 60 mg .ROUTE .STK-MED ONE Lab/Rad Data: Laboratory Results 07/25/18 Range/Units 18:00 Serum , Qual NEGATIVE (Negative) - Progress Progress: improved Progress Note: 07/25/18 18:29 48-year-old white female with history of chronic back pain who states she is scheduled July to have removal of a screw from hardware in the past, She is complaining of pain in her low back radiating down her right leg, This was not controlled with her home oxycodone. And OxyContin. Patient had taken a 20 mg Oxy codon prior to arrival. She was given 60 mg of Toradol IM. Although she states she does not feel much better she is moving her legs around and does not appear to be in acute distress. I've offered to obtain a repeat CT of the patient's back she does not want this, I have told her that I can give her an injection of morphine and Phenergan but she will have to have a ride here, Will plan to do this have patient return home take her pain medications as prescribed by her paint specialist/family doctor, She is follow-up with her pain management doctor/family doctor. - Departure Time of Disposition: 18:32 Departure Disposition: Home Clinical Impression: Exacerbation of chronic back pain Chronic back pain Qualifiers: Back pain location: low back pain Back pain laterality: right Sciatica presence : with sciatica Sciatica laterality: sciatica of right side Qualified Code(s): M54.41 - Lumbago with sciatica, right side; G89.29 - Other chronic pain Condition: Fair Critical Care Time: No Referrals: CELESTINE BERNARD [Primary Care Provider] - Additional Instructions: Return home. Continue narcotic analgesia and other medicines as prescribed by your pain inventory control coordinator/family doctor. Follow-up with your family doctor/pain inventory control coordinator. Return for acute distress or for severe symptoms.
[2018-07-25] MEDS ORDERED: TORAdol 30 mg Injection ONE (16:58)
[2018-07-25] MEDS ORDERED: MORPHINE SULFATE 4 MG INJ IM ONE (18:33)
[2018-07-25] MEDS ORDERED: Phenergan 25 MG INJ IM ONE (18:33)
[2018-07-25] MEDS ORDERED: MORPHINE SULFATE 4 MG INJ ONE (19:27)
[2018-07-25] MEDS ORDERED: Phenergan 25 MG INJ ONE (19:27)
[2018-07-25 19:57] VITALS: BP 138/86; PULSE 87; O2SAT 97
== END 2018-07-25 19:57 | disposition home or self-care (01) ==
LOC: ED 15:52
DX: M54.40 Lumbago with sciatica, unspecified side (principal); G89.29 Other chronic pain; Z79.899 Other long term (current) drug therapy
CPT/HCPCS: 36415; 84703; 96372; 99284; J1885; J2270; J2550

== ENCOUNTER 2018-08-27 18:37 | Emergency (ER) | payer OTHER ==
[2018-08-27] MEDS ORDERED: Zofran 4 MG/2 ML VIAL IV ONE (18:52)
[2018-08-27] MEDS ORDERED: Hydromorphone 1 mg/ml Ampule IV ONE ×2 (18:52→22:02)
[2018-08-27] MEDS ORDERED: Ativan 2 MG/1 ML VIAL IV ONE (18:53)
[2018-08-27] MEDS ORDERED: Zofran 4 MG/2 ML VIAL ONE (18:56)
[2018-08-27] MEDS ORDERED: Hydromorphone 1 mg/ml Ampule ONE ×2 (18:57→22:16)
[2018-08-27] MEDS ORDERED: Ativan 2 MG/1 ML VIAL ONE (18:57)
--- NOTE | 2018-08-27 19:14 | ERPHSYRPT ---
- History of Present Illness Time Seen by Provider: 08/27/18 18:50 Source: patient, EMS Exam Limitations: no limitations Patient Subjective Stated Complaint: STATES PAIN FROM BACK SURGERY ONE WEEK AGO GOT SUDDENLY WORSE TODAY. ALSO STATES PAIN IS RADIATING UP INTO BACK AND FEELS LIKE IT'S BURNING. Triage Nursing Assessment: ON ARRIVAL PATIENT HAD BEEN CRYING BUT WAS THEN ABLE TO TALK WITH STAFF. DURING INTERVIEW PATIENT BEGAN CRYING, MOANING AND BECAME RESTLESS. PATIENT WAS TURNED TO RIGHT SIDE AND SURGICAL WOUND WAS OBSERVED. BON INTACT AND NO REDNESS OR DRAINAGE NOTED. SKIN FLUSHED. WARM TO TOUCH/ DRY. Physician History: 48 y/o white female s/p back surgery at [facility] in [place] by Dr. Steele on 08/17/18. pt states her back pain was as expected but suddenly becae worse today. she states pain is sharp and burning and radiates cranially and caudally along spine. pt also states she has an assoc fever of 103 F. on arrival her temp is normal. 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 Timing/Duration: today Method of Injury: other (back surgery 08/17/18. no new injury) Quality: burning, radiating, sharp Back Pain Location: lumbar spine Severity of Pain-Max: moderate Severity of Pain-Current: moderate Modifying Factors: Improves With: movement Associated Symptoms: fever, muscle spasms, No chills, No sweating, No urinary incontinence, No loss of bowel control, No constipation, No nausea, No vomiting , No problems urinating, No light-headedness, No dizziness, No numbness in legs/ feet, No weakness Previous symptoms: no prior history Allergies/Adverse Reactions: No Known Drug Allergies Allergy (Verified 08/27/18 19:02) Home Medications: Lisinopril 10 mg [Zestril 10 MG] 20 mg PO DAILY 04/20/16 [History] Oxycodone HCl [Oxycodone HCl ER] 40 mg PO BID 10/15/16 [History] Pregabalin [Lyrica 150Mg] 1 tab PO TID 10/15/16 [History] Duloxetine HCl 30 mg [Cymbalta 30 MG Capsule] 90 mg PO DAILY 12/31/16 [ History] Solifenacin Succinate [Vesicare] 10 mg PO DAILY 08/13/17 [History] Tizanidine HCl 2 mg PO TID 08/13/17 [History] Trazodone HCl 50 mg [Desyrel 50 mg] 100 mg PO QHS 12/27/17 [History] Clonidine HCl 0.1 mg [Catapres 0.1 MG] 0.1 mg PO 08/27/18 [History] Loratadine 10 mg [Claritin 10 mg] 10 mg PO DAILY 08/27/18 [History] Omeprazole 20 MG [Prilosec 20 mg] 20 mg PO DAILY 08/27/18 [History] Oxycodone HCl Cr 20 mg [Oxycontin 20 MG ER] 20 mg PO QID 08/27/18 [History ] Hx Tetanus, Diphtheria Vaccination/Date Given: Yes Hx Influenza Vaccination/Date Given: Yes Hx Pneumococcal Vaccination/Date Given: No - Review of Systems Constitutional: No Symptoms, Fever, No Chills Eyes: No Symptoms, No Eye Pain, No Eye Redness Ears, Nose, & Throat: No Symptoms, No Ear Pain, No Mouth Pain, No Throat Swelling, No Painful Swallowing Respiratory: No Symptoms, No Cough, No Dyspnea, No Stridor, No Wheezing Cardiac: No Symptoms, No Chest Pain, No Palpitations, No Syncope Abdominal/Gastrointestinal: No Symptoms, No Abdominal Pain, No Nausea, No Vomiting, No Diarrhea Genitourinary Symptoms: No Symptoms, No Dysuria, No Frequency, No Hematuria Musculoskeletal: Back Pain, No Deformity, No Fall, No Injury Skin: No Symptoms, No Cellulitis, No Pruritis, No Rash Neurological: No Symptoms, No Dizziness, No Gait Changes, No Headache Psychological: No Symptoms, No Alcohol Abuse, No Drug Abuse, No Anxiety, No Depression, No Hallucinations Endocrine: No Symptoms, No Polyuria Hematologic/Lymphatic: No Symptoms, No Anemia, No Blood Clots Immunological/Allergic: No Symptoms All Other Systems: Reviewed and Negative - Past Medical History Pertinent Past Medical History: Yes Neurological History: Migraines ENT History: No Pertinent History Cardiac History: No Pertinent History, Hypertension Respiratory History: No Pertinent History Endocrine Medical History: No Pertinent History Musculoskeletal History: Arthritis, Degenerative Disk Disease, Fibromyalgia, Fractures, Osteoporosis GI Medical History: No Pertinent History History: No Pertinent History Psycho-Social History: Anxiety, Attention Deficit Disorder, Depression Female Reproductive Disorders: No Pertinent History Other Medical History: L5 compression fx at age 19. - Past Surgical History Past Surgical History: Yes Neuro Surgical History: No Pertinent History Cardiac: No Pertinent History Respiratory: No Pertinent History Gastrointestinal: No Pertinent History Genitourinary: No Pertinent History Musculoskeletal: Orthopedic Surgery Female Surgical History: Dilation & Curettage Other Surgical History: lumbar spinal fusion, synovial cyst removed - Social History Smoking Status: Current every day smoker How long have you smoked: 20 years Exposure to second hand smoke: No Drug Use: none Patient Lives Alone: No - Female History Hx Last Menstrual Period: ONE WEEK AGO Hx Now: No - Nursing Vital Signs Nursing Vital Signs: Initial Vital Signs Temperature 98.2 F 08/27/18 18:45 Pulse Rate 115 H 08/27/18 18:45 Respiratory Rate 20 08/27/18 18:45 Blood Pressure 174/86 08/27/18 18:45 O2 Sat by Pulse Oximetry 94 L 08/27/18 18:45 Pain Scale Pain Intensity [Back] 10 Pain Intensity 8 - Physical Exam General Appearance: moderate distress, alert, anxiety Eye Exam: PERRL/EOMI, eyes nml inspection Ears, Nose, Throat Exam: normal ENT inspection, TMs normal, moist mucous membranes Neck Exam: normal inspection, non-tender, supple, full range of motion, No limited range of motion, No lymphadenopathy, No midline tenderness Respiratory Exam: normal breath sounds, lungs clear, airway intact, No chest tenderness, No respiratory distress, No accessory muscle use, No rhonchi, No wheezing, No stridor Cardiovascular Exam: regular rate/rhythm, normal heart sounds, normal peripheral pulses Gastrointestinal Exam: soft, normal bowel sounds, No tenderness, No guarding, No rebound Pelvic Exam: not done Rectal Exam: not done Back Exam: muscle spasm, other (pts surgical scar is healing well without evidence of infection. it is intact with bon, no odor, no drainage no redness. no evidence of subq fluid collections) Neurologic Exam: alert, oriented x 3, cooperative, last inserter II-XII nml as tested Skin Exam: normal color, warm, dry Lymphatic Exam: No adenopathy SpO2 Interpretation: borderline oxygenation SpO2: 94 Oxygen Delivery: Room Air - Course Nursing assessment & vital signs reviewed: Yes Ordered Tests: Active Orders 24 hr Category Date Time Status IV Insertion STAT Care 08/27/18 19:00 Active CHEST 1 VIEW (PORTABLE) Stat Exams 08/27/18 19:08 Completed LUMBAR SPINE W/O [CT] Stat Exams 08/27/18 19:21 Completed BLOOD CULTURE Stat Lab 08/27/18 20:00 Received CBC W DIFF Stat Lab 08/27/18 19:10 Completed CMP Stat Lab 08/27/18 19:10 Completed HCG,QUALITATIVE URINE Stat Lab 08/27/18 19:38 Completed Lactic Acid Stat Lab 08/27/18 19:13 Completed Manual Differential NC Stat Lab 08/27/18 19:10 Completed UA W/RFX UR CULTURE Stat Lab 08/27/18 19:15 Completed Medication Summary Discontinued Medications Generic Name Dose Route Start Last Admin Trade Name Freq PRN Reason Stop Dose Admin Hydromorphone HCl 0.5 mg 08/27/18 18:52 08/27/18 19:02 Hydromorphone 1 Mg/Ml Ampule IV 08/27/18 18:53 0.5 mg STAT ONE Administration Hydromorphone HCl Confirm 08/27/18 18:57 Hydromorphone 1 Mg/Ml Ampule Administered 08/27/18 18:58 Dose 1 mg .ROUTE .STK-MED ONE Ceftriaxone Sodium/Dextrose 1 g in 50 mls @ 100 mls/hr 08/27/18 21:17 21:31 Rocephin 1 Gm-D5w 50 Ml Bag IV 08/27/18 21:46 50 ml/hr STAT STA 50 mls/hr Administration Ceftriaxone Sodium/Dextrose Confirm 08/27/18 21:25 Rocephin 1 Gm-D5w 50 Ml Bag Administered 08/27/18 21:26 Dose 1 g in 50 mls @ ud IV .STK-MED ONE Lorazepam 1 mg 08/27/18 18:53 08/27/18 19:02 Ativan 2 Mg/1 Ml Vial IV 08/27/18 18:54 1 mg STAT ONE Administration Lorazepam Confirm 08/27/18 18:57 Ativan 2 Mg/1 Ml Vial Administered 08/27/18 18:58 Dose 2 mg .ROUTE .STK-MED ONE Ondansetron HCl 4 mg 08/27/18 18:52 08/27/18 19:03 Zofran 4 Mg/2 Ml Vial IV 08/27/18 18:53 4 mg STAT ONE Administration Ondansetron HCl Confirm 08/27/18 18:56 Zofran 4 Mg/2 Ml Vial Administered 08/27/18 18:57 Dose 4 mg .ROUTE .STK-MED ONE Lab/Rad Data: Laboratory Result Diagrams 08/27/18 19:10 08/27/18 19:10 Laboratory Results 08/27/18 08/27/18 08/27/18 Range/Units 19:38 19:15 19:13 WBC (4.0-10.5) K/mm3 RBC (4.1-5.4) M/mm3 Hgb (12.0-16.0) gm/dl Hct (35-47) % MCV (78-100) fl MCH (26-32) pg MCHC (32-36) g/dl RDW (11.5-14.0) % Plt Count (150-450) K/mm3 MPV (6-9.5) fl Absolute Granulocytes (1.4-6.9) Sodium (137-145) mmol/L Potassium (3.5-5.1) mmol/L Chloride (98-107) mmol/L Carbon Dioxide (22-30) mmol/L Anion Gap (5-15) MEQ/L BUN (7-17) mg/dL Creatinine (0.52-1.04) mg/dL Estimated GFR ML/MIN Glucose (74-106) mg/dL Lactic Acid 1.6 (0.4-2.0) Calcium (8.4-10.2) mg/dL Total Bilirubin (0.2-1.3) mg/dL AST (14-36) U/L ALT (0-35) U/L Alkaline Phosphatase (38-126) U/L Serum Total Protein (6.3-8.2) g/dL Albumin (3.5-5.0) g/dL Urine Color YELLOW (YELLOW) Urine Appearance CLEAR (CLEAR) Urine pH 6.0 (5-6) Ur Specific Butler 1.010 (1.005-1.025) Urine Protein NEGATIVE (Negative) Urine Ketones NEGATIVE (NEGATIVE) Urine Blood NEGATIVE (0-5) Cory/ul Urine Nitrite NEGATIVE (NEGATIVE) Urine Bilirubin NEGATIVE (NEGATIVE) Urine Urobilinogen NEGATIVE (0-1) mg/dL Ur Leukocyte Esterase NEGATIVE (NEGATIVE) Urine WBC (Auto) 0-2 (0-5) /HPF U Hyaline Cast (Auto) 0-2 (0-2) /LPF U Epithel Cells (Auto) RARE (FEW) /HPF Urine Bacteria (Auto) RARE (NEGATIVE) /HPF Urine Mucus (Auto) SLIGHT (NEGATIVE) /HPF Urine Culture Reflexed NO (NO) Urine Glucose NEGATIVE (NEGATIVE) mg/dL Urine HCG, Qual NEGATIVE (Negative) 08/27/18 08/27/18 Range/Units 19:10 19:10 WBC 18.7 H (4.0-10.5) K/mm3 RBC 4.16 (4.1-5.4) M/mm3 Hgb 13.9 (12.0-16.0) gm/dl Hct 42.5 (35-47) % MCV 102.2 H (78-100) fl MCH 33.4 H (26-32) pg MCHC 32.7 (32-36) g/dl RDW 13.4 (11.5-14.0) % Plt Count 347 (150-450) K/mm3 MPV 11.1 H (6-9.5) fl Absolute Granulocytes 15.21 H (1.4-6.9) Sodium 139 (137-145) mmol/L Potassium 4.5 (3.5-5.1) mmol/L Chloride 103 (98-107) mmol/L Carbon Dioxide 28 (22-30) mmol/L Anion Gap 13.8 (5-15) MEQ/L BUN 31 H (7-17) mg/dL Creatinine 0.84 (0.52-1.04) mg/dL Estimated GFR > 60.0 ML/MIN Glucose 129 H (74-106) mg/dL Lactic Acid (0.4-2.0) Calcium 9.2 (8.4-10.2) mg/dL Total Bilirubin 0.20 (0.2-1.3) mg/dL AST 19 (14-36) U/L ALT 30 (0-35) U/L Alkaline Phosphatase 75 (38-126) U/L Serum Total Protein 7.3 (6.3-8.2) g/dL Albumin 4.5 (3.5-5.0) g/dL Urine Color (YELLOW) Urine Appearance (CLEAR) Urine pH (5-6) Ur Specific Butler (1.005-1.025) Urine Protein (Negative) Urine Ketones (NEGATIVE) Urine Blood (0-5) Cory/ul Urine Nitrite (NEGATIVE) Urine Bilirubin (NEGATIVE) Urine Urobilinogen (0-1) mg/dL Ur Leukocyte Esterase (NEGATIVE) Urine WBC (Auto) (0-5) /HPF U Hyaline Cast (Auto) (0-2) /LPF U Epithel Cells (Auto) (FEW) /HPF Urine Bacteria (Auto) (NEGATIVE) /HPF Urine Mucus (Auto) (NEGATIVE) /HPF Urine Culture Reflexed (NO) Urine Glucose (NEGATIVE) mg/dL Urine HCG, Qual (Negative) - Progress Progress Note: 08/27/18 21:29 pts pain well controlled. pt thirsty. 08/27/18 21:[address] corbett(surgeon distribution sales manager for dr. jill steele) he accepts pt for transfer ED to ED at [facility] in [place] after i reviewed pt hx, condition, lab and xray results with him. pt DOES want to be transferred. 08/27/18 21:59 ct l spine shows small subq incisional fluid either postop hematoma/seroma, infection cannot be excluded completely - Departure Time of Disposition: 22:01 Departure Disposition: Transfer Clinical Impression: Postoperative back pain Condition: Stable Critical Care Time: No Referrals: CELESTINE BERNARD [Primary Care Provider] -
[2018-08-27 19:30] LABS: Granulocyte Absolute (ANC) 15.21 (1.4-6.9); Hematocrit 42.5 % (35-47); Hemoglobin 13.9 gm/dl (12.0-16.0); Mean Cell Volume 102.2 fl (78-100); Mean Corpuscular Hemoglobin 33.4 pg (26-32); Mean Corpuscular Hgb Concent. 32.7 g/dl (32-36); Mean Platelet Volume 11.1 fl (6-9.5); Platelet Count 347 K/mm3 (150-450); Red Blood Count 4.16 M/mm3 (4.1-5.4); Red Cell Distribution Width 13.4 % (11.5-14.0); White Blood Count 18.7 K/mm3 (4.0-10.5)
[2018-08-27 19:41] LABS: ALBUMIN 4.5 g/dL (3.5-5.0); ALKALINE PHOSPHATASE 75 U/L (38-126); ANION GAP 13.8 MEQ/L (5-15); BLOOD UREA NITROGEN 31 mg/dL (7-17); CHLORIDE 103 mmol/L (98-107); Calcium 9.2 mg/dL (8.4-10.2); Carbon Dioxide 28 mmol/L (22-30); Creatinine 1 0.84 mg/dL (0.52-1.04); Glucose 129 mg/dL (74-106); Potassium 4.5 mmol/L (3.5-5.1); SGOT/AST 19 U/L (14-36); SGPT/ALT 30 U/L (0-35); SODIUM 139 mmol/L (137-145); Total Protein 7.3 g/dL (6.3-8.2)
[2018-08-27 19:41] LABS: Appearance CLEAR (CLEAR); Bilirubin NEGATIVE (NEGATIVE); Blood NEGATIVE Ery/ul (0-5); Glucose NEGATIVE (NEGATIVE); Ketones NEGATIVE (NEGATIVE); Leukocyte Esterase NEGATIVE (NEGATIVE); Nitrite NEGATIVE (NEGATIVE); Protein,Urine Dip NEGATIVE (Negative); Urobilinogen NEGATIVE mg/dL (0-1)
--- NOTE | 2018-08-27 21:12 | XRAY ---
Indication: L5 surgery August 14, 2018. Postsurgical pain. Multiple contiguous axial images obtained through the lumbar spine. Sagittal and coronal reformatted images obtained. Comparison: August 20, 2017. There has been interval L4-L5 posterior fusion revision with new bilateral pedicle screws, spinal rods, and bone grafts. Stable right hemilaminectomy. The right L4 pedicle screw tip slightly protrudes through the superior endplate. There remains remnant bilateral L5 pedicle screws. L4-L5 intervertebral spacer has been removed. Extreme beam artifact limits disc evaluation. Also cutaneous bon with small incisional fluid measuring 2.0 x 1.5 x 4.5 cm in greatest AP, transverse, and CC dimensions respectively. The T12-L3 disc levels negative for disc herniation, spinal canal, or foraminal stenosis. The L3-L4 level limited by beam artifact from spinal hardware. Grossly stable mild annular disc bulge again producing bilateral foraminal narrowing. The L5-S1 level limited by beam artifact from spinal hardware. No large disc herniation, spinal canal, or foraminal stenosis. New vacuum disc phenomena. Sagittal and coronal reformatted images demonstrates normal alignment again with L4-S1 disc space narrowing. No acute compression fracture or subluxation. Visualized noncontrasted soft tissues again demonstrates minimal aortoiliac calcifications. New nonobstructing 6 mm left renal calculus. Impression: 1. Status post L4-L5 posterior fusion revision as detailed. Beam artifact from spinal hardware limits L3-S1 levels. Small subcutaneous incisional fluid either postoperative hematoma/seroma with infection not completely excluded in the right clinical setting. 2. Stable L3-L4 degenerative disc bulge. 3. Nonobstructing left renal calculus not previously imaged. CTDI 84.55
--- NOTE | 2018-08-27 21:16 | XRAY ---
Indication: Fever. Status post spinal surgery. Comparison: June 21, 2012. Portable chest again demonstrates normal heart, lungs, and bony thorax.
[2018-08-27] MEDS ORDERED: ROCEPHIN 1 Gm-D5w 50 ml Bag** 1 G/50 ML IVPB IV STA (21:17)
[2018-08-27] MEDS ORDERED: ROCEPHIN 1 Gm-D5w 50 ml Bag** 1 G/50 ML IVPB IV ONE (21:25)
[2018-08-27 21:57] LABS: BAND 1 % (0.0-2.0); Lymphocytes 12 % (24-44); Monocyte 6 % (0.0-12.0); Neutrophils 81 % (36.0-66.0); Platelet Estimate NORMAL (NORMAL); Total Cells Counted 100
[2018-08-27 22:52] VITALS: BP 140/92; O2SAT 95
[2018-08-27 22:53] VITALS: PULSE 82
== END 2018-08-27 23:04 | disposition short-term general hospital (02) ==
LOC: ED 18:37
DX: G89.18 Other acute postprocedural pain (principal); M54.5 Low back pain; Z79.899 Other long term (current) drug therapy
CPT/HCPCS: 36415; 71045; 72131; 80053; 81001; 83605; 84703; 85025; 87040; 96365; 96374; 96375; 96376; 99285; J0696; J1170; J2060; J2405

== ENCOUNTER 2018-09-01 22:35 | Emergency (ER) | payer OTHER ==
[2018-09-01] MEDS ORDERED: Zofran 4 MG/2 ML VIAL IV ONE (23:14)
[2018-09-01] MEDS ORDERED: Sodium Chloride 0.9% 1000 ML 1,000 ML IV STA ×2 (23:14→23:58)
[2018-09-01] MEDS ORDERED: Hydromorphone 1 mg/ml Ampule IV ONE (23:16)
[2018-09-01] MEDS ORDERED: Hydromorphone 1 mg/ml Ampule ONE (23:19)
[2018-09-01] MEDS ORDERED: Zofran 4 MG/2 ML VIAL ONE (23:19)
[2018-09-01] MEDS ORDERED: Sodium Chloride 0.9% 1000 ML 1,000 ML ONE (23:19)
[2018-09-01 23:45] LABS: Lactic Acid 2.6 (0.4-2.0)
[2018-09-01] MEDS ORDERED: Sodium Chloride 0.9% 1000 ML 1,000 ML IV SCH (23:45)
--- NOTE | 2018-09-01 23:47 | ERPHSYRPT ---
- History of Present Illness Time Seen by Provider: 09/01/18 23:15 Source: patient Exam Limitations: clinical condition Patient Subjective Stated Complaint: Patient states she has infection in incision to back. Triage Nursing Assessment: Patient brought back to ER via W/C. Patient states she had back surgery 2 weeks ago. Patient started having fevers last thursday and called her surgeon. Patient's surgeon Dr. Thomas in [facility] ordered an CT and MRI and it showed infection. Patient states she recieved atb for the weekend. Patient states she is in pain 07/02. Incision to back well approximated and healing. No drainage present. Physician History: PATIENT WITH A HISTORY OF HYPERTENSION, CHRONIC LOW BACK PAIN, LUMBAR HERNIATED DISC UNDERWENT 3 LUMBAR SURGERIES WITH HARDWARE ON 01/04/2017, 2016, AND ON 08/17/2018. PATIENT REFERRED TO [facility] ON 08/27/2018 FOR INTERMITTENT FEVERS, DIAGNOSED WITH LUMBAR MRI WITH A POSTOPERATIVE SUBCUTANEOUS FLUID COLLECTION, HEMATOMA VS SEROMA. PATIENT DISCHARGED HOME ON , AND COMPLAINS OF INTERMITTENT FEVERS AND INCREASING LOW BACK PAIN. DENIES NAUSEA, EMESIS, CHILLS, NUMBNESS, TINGLING OR WEAKNESS IN EXTREMITIES. Allergies/Adverse Reactions: No Known Drug Allergies Allergy (Verified 09/01/18 22:53) Home Medications: Lisinopril 10 mg [Zestril 10 MG] 20 mg PO DAILY 04/20/16 [History] Oxycodone HCl [Oxycodone HCl ER] 40 mg PO BID 10/15/16 [History] Pregabalin [Lyrica 150Mg] 1 tab PO TID 10/15/16 [History] Duloxetine HCl 30 mg [Cymbalta 30 MG Capsule] 90 mg PO DAILY 12/31/16 [ History] Solifenacin Succinate [Vesicare] 10 mg PO DAILY 08/13/17 [History] Tizanidine HCl 2 mg PO TID 08/13/17 [History] Trazodone HCl 50 mg [Desyrel 50 mg] 100 mg PO QHS 12/27/17 [History] Clonidine HCl 0.1 mg [Catapres 0.1 MG] 0.1 mg PO BID 08/27/18 [History] Loratadine 10 mg [Claritin 10 mg] 10 mg PO DAILY 08/27/18 [History] Omeprazole 20 MG [Prilosec 20 mg] 20 mg PO DAILY 08/27/18 [History] Oxycodone HCl Cr 20 mg [Oxycontin 20 MG ER] 20 mg PO QID 08/27/18 [History ] Hx Tetanus, Diphtheria Vaccination/Date Given: Yes Hx Influenza Vaccination/Date Given: Yes Hx Pneumococcal Vaccination/Date Given: No Immunizations Up to Date: Yes - Past Medical History Pertinent Past Medical History: Yes Neurological History: Migraines ENT History: No Pertinent History Cardiac History: No Pertinent History, Hypertension Respiratory History: No Pertinent History Endocrine Medical History: No Pertinent History Musculoskeletal History: Arthritis, Degenerative Disk Disease, Fibromyalgia, Fractures, Osteoporosis GI Medical History: No Pertinent History History: No Pertinent History Psycho-Social History: Anxiety, Attention Deficit Disorder, Depression Female Reproductive Disorders: No Pertinent History Other Medical History: L5 compression fx at age 19. - Past Surgical History Past Surgical History: Yes Neuro Surgical History: No Pertinent History Cardiac: No Pertinent History Respiratory: No Pertinent History Gastrointestinal: No Pertinent History Genitourinary: No Pertinent History Musculoskeletal: Orthopedic Surgery Female Surgical History: Dilation & Curettage Other Surgical History: lumbar spinal fusion, synovial cyst removed - Social History Smoking Status: Current every day smoker How long have you smoked: 20 years Exposure to second hand smoke: No Drug Use: none Patient Lives Alone: No - Female History Hx Last Menstrual Period: 2 weeks ago Hx Now: (unknown) - Nursing Vital Signs Nursing Vital Signs: Initial Vital Signs Temperature 98.7 F 09/01/18 22:45 Pulse Rate 111 H 09/01/18 22:45 Respiratory Rate 18 09/01/18 22:45 Blood Pressure 148/87 09/01/18 22:45 O2 Sat by Pulse Oximetry 98 09/01/18 22:45 Pain Scale Pain Intensity 9 - Physical Exam SpO2: 98 Oxygen Delivery: Room Air Ordered Tests: Active Orders 24 hr Category Date Time Status Clean Catch Urine Specimen STAT Care 09/01/18 23:14 Active LUMBAR SPINE W/O [CT] Stat Exams 09/01/18 23:20 Ordered BLOOD CULTURE Stat Lab 09/01/18 23:15 Ordered CBC W DIFF Stat Lab 09/01/18 23:14 Ordered CMP Stat Lab 09/01/18 23:14 Ordered HCG,QUALITATIVE URINE Stat Lab 09/01/18 23:15 Uncollected Lactic Acid Stat Lab 09/01/18 23:14 Ordered Urine Triage Profile Stat Lab 09/01/18 23:15 Uncollected Medication Summary Generic Name Dose Route Start Last Admin Trade Name Freq PRN Reason Stop Dose Admin Sodium Chloride 1,000 mls @ 999 mls/hr 09/01/18 23:14 Sodium Chloride 0.9% 1000 Ml IV 09/02/18 00:14 .Q1H1M STA Discontinued Medications Generic Name Dose Route Start Last Admin Trade Name Freq PRN Reason Stop Dose Admin Hydromorphone HCl 1 mg 09/01/18 23:16 Hydromorphone 1 Mg/Ml Ampule IV 09/01/18 23:17 STAT ONE Hydromorphone HCl Confirm 09/01/18 23:19 Hydromorphone 1 Mg/Ml Ampule Administered 09/01/18 23:20 Dose 1 mg .ROUTE .STK-MED ONE Sodium Chloride Confirm 09/01/18 23:19 Sodium Chloride 0.9% 1000 Ml Administered 09/01/18 23:20 Dose 1,000 mls @ ud .ROUTE .STK-MED ONE Ondansetron HCl 4 mg 09/01/18 23:14 Zofran 4 Mg/2 Ml Vial IV 09/01/18 23:15 STAT ONE Ondansetron HCl Confirm 09/01/18 23:19 Zofran 4 Mg/2 Ml Vial Administered 09/01/18 23:20 Dose 4 mg .ROUTE .STK-MED ONE - Departure Referrals: CELESTINE BERNARD [Primary Care Provider] -
[2018-09-01 23:48] LABS: Granulocyte Absolute (ANC) 19.72 (1.4-6.9); Hematocrit 40.4 % (35-47); Hemoglobin 13.5 gm/dl (12.0-16.0); Mean Cell Volume 101.8 fl (78-100); Mean Corpuscular Hgb Concent. 33.4 g/dl (32-36); Mean Platelet Volume 11.1 fl (6-9.5); Platelet Count 271 K/mm3 (150-450); Red Blood Count 3.97 M/mm3 (4.1-5.4); Red Cell Distribution Width 13.6 % (11.5-14.0); White Blood Count 22.9 K/mm3 (4.0-10.5)
[2018-09-01] MEDS ORDERED: Zosyn 3.375GM/100 Ml D5W 3.375 GM/100 ML IVPB IV STA (23:58)
[2018-09-02 00:05] LABS: ALBUMIN 4.6 g/dL (3.5-5.0); BILIRUBIN,TOTAL 0.2 mg/dL (0.2-1.3); Calcium 10.1 mg/dL (8.4-10.2); Creatinine 1 1.11 mg/dL (0.52-1.04); INR 0.93 (0.8-3.0); Potassium 4.4 mmol/L (3.5-5.1); Total Protein 7.6 g/dL (6.3-8.2)
--- NOTE | 2018-09-02 00:11 | ERPHSYRPT ---
- History of Present Illness Time Seen by Provider: 09/01/18 23:15 Source: patient Patient Subjective Stated Complaint: Patient states she has infection in incision to back. Triage Nursing Assessment: Patient brought back to ER via W/C. Patient states she had back surgery 2 weeks ago. Patient started having fevers last thursday and called her surgeon. Patient's surgeon Dr. Thomas in [facility] ordered an CT and MRI and it showed infection. Patient states she recieved atb for the weekend. Patient states she is in pain 07/02. Incision to back well approximated and healing. No drainage present. Physician History: PATIENT WITH A HISTORY OF HYPERTENSION, CHRONIC LOW BACK PAIN, HERNIATED DISC, REQUIRING LUMBAR SURGERIES X 3 PROCEDURES ON 04/03/2017, 09/03/2017 AND 2017 WAS HOSPITALIZED ON 08/27/2018 AT [facility] FOR PERSISTENT FEVERS, INCREASING LOWER BACK PAINS, DIAGNOSED WITH A POSTOPERATIVE SMALL SUBCUTANEOUS FLUID COLLECTION, HEMATOMA VS SEROMA. PATIENT DISCHARGED 3 DAYS AGO AND COMPLAINS OF PERSISTENT FEVERS AND LOW BACK PAIN. DENIES CHILLS, EMESIS, LOSS OF BOWEL OR BLADDER FUNCTIONS, NUMBNESS, TINGLING OR WEAKNESS IN EXTREMITIES. Timing/Duration: day(s) Method of Injury: other (NO INJURY, 11 DAYS POST LUMBAR SURGERY) Quality: throbbing Back Pain Location: lumbar spine Back Pain Radiation: buttocks Severity of Pain-Max: severe Severity of Pain-Current: severe Modifying Factors: Improves With: movement Associated Symptoms: fever Previous symptoms: same symptoms as today Allergies/Adverse Reactions: No Known Drug Allergies Allergy (Verified 09/01/18 22:53) Home Medications: Lisinopril 10 mg [Zestril 10 MG] 20 mg PO DAILY 04/20/16 [History] Oxycodone HCl [Oxycodone HCl ER] 40 mg PO BID 10/15/16 [History] Pregabalin [Lyrica 150Mg] 1 tab PO TID 10/15/16 [History] Duloxetine HCl 30 mg [Cymbalta 30 MG Capsule] 90 mg PO DAILY 12/31/16 [ History] Solifenacin Succinate [Vesicare] 10 mg PO DAILY 08/13/17 [History] Tizanidine HCl 2 mg PO TID 08/13/17 [History] Trazodone HCl 50 mg [Desyrel 50 mg] 100 mg PO QHS 12/27/17 [History] Clonidine HCl 0.1 mg [Catapres 0.1 MG] 0.1 mg PO BID 08/27/18 [History] Loratadine 10 mg [Claritin 10 mg] 10 mg PO DAILY 08/27/18 [History] Omeprazole 20 MG [Prilosec 20 mg] 20 mg PO DAILY 08/27/18 [History] Oxycodone HCl Cr 20 mg [Oxycontin 20 MG ER] 20 mg PO QID 08/27/18 [History ] Hx Tetanus, Diphtheria Vaccination/Date Given: Yes Hx Influenza Vaccination/Date Given: Yes Hx Pneumococcal Vaccination/Date Given: No Immunizations Up to Date: Yes - Review of Systems Constitutional: Fever, No Chills Eyes: No Symptoms Ears, Nose, & Throat: No Symptoms Respiratory: No Symptoms, No Cough, No Dyspnea Cardiac: No Symptoms, No Chest Pain, No Edema, No Syncope Abdominal/Gastrointestinal: No Symptoms, No Abdominal Pain, No Nausea, No Vomiting, No Diarrhea Genitourinary Symptoms: No Dysuria Musculoskeletal: Back Pain, No Neck Pain Skin: No Rash Neurological: No Dizziness, No Focal Weakness, No Sensory Changes Psychological: No Symptoms Endocrine: No Symptoms All Other Systems: Reviewed and Negative - Past Medical History Pertinent Past Medical History: Yes Neurological History: Migraines ENT History: No Pertinent History Cardiac History: No Pertinent History, Hypertension Respiratory History: No Pertinent History Endocrine Medical History: No Pertinent History Musculoskeletal History: Arthritis, Degenerative Disk Disease, Fibromyalgia, Fractures, Osteoporosis GI Medical History: No Pertinent History History: No Pertinent History Psycho-Social History: Anxiety, Attention Deficit Disorder, Depression Female Reproductive Disorders: No Pertinent History Other Medical History: L5 compression fx at age 19. - Past Surgical History Past Surgical History: Yes Neuro Surgical History: No Pertinent History Cardiac: No Pertinent History Respiratory: No Pertinent History Gastrointestinal: No Pertinent History Genitourinary: No Pertinent History Musculoskeletal: Orthopedic Surgery Female Surgical History: Dilation & Curettage Other Surgical History: lumbar spinal fusion, synovial cyst removed - Social History Smoking Status: Current every day smoker How long have you smoked: 20 years Exposure to second hand smoke: No Drug Use: none Patient Lives Alone: No - Female History Hx Last Menstrual Period: 2 weeks ago Hx Now: (unknown) - Nursing Vital Signs Nursing Vital Signs: Initial Vital Signs Temperature 98.7 F 09/01/18 22:45 Pulse Rate 111 H 09/01/18 22:45 Respiratory Rate 18 09/01/18 22:45 Blood Pressure 148/87 09/01/18 22:45 O2 Sat by Pulse Oximetry 98 09/01/18 22:45 Pain Scale Pain Intensity 4 - Physical Exam General Appearance: moderate distress Eye Exam: PERRL/EOMI, eyes nml inspection Neck Exam: normal inspection, non-tender, supple, full range of motion, No meningismus, No midline tenderness Respiratory Exam: normal breath sounds, lungs clear, No respiratory distress Cardiovascular Exam: regular rate/rhythm, normal heart sounds, tachycardia Gastrointestinal Exam: soft, normal bowel sounds Back Exam: normal inspection, vertebral tenderness (L1 TO L5, THERE IS A WELL HEALED LUMBAR MIDLINE INCISIONAL WOUND.), decreased range of motion Extremity Exam: normal range of motion, No calf tenderness, No pedal edema Peripheral Pulses: carotid (R): 2+, carotid (L): 2+, femoral (R): 2+, femoral (L ): 2+, dorsalis-pedis (R): 2+, dorsalis-pedis (L): 2+ Neurologic Exam: alert, oriented x 3 Skin Exam: normal color, warm, dry, No rash SpO2 Interpretation: normal SpO2: 99 Oxygen Delivery: Room Air - Course EKG Interpreted by Me: RATE, Sinus Rhythm, Sinus Tach, Non-specific ST Changes ( RATE 106, INFERIOR LATERAL T-WAVE INVERSION) - CT Exams Lumbar Spine CT Interpretation: Tele-radiologist Report (THERE IS L4-5 FUSION, IRREGULAR ENDPLATE CHANGES NOTED THE L4-5 LEVEL NOTED, SIMILAR TO PRIOR EXAM FROM . NO SPINAL CANAL STENOSIS, SOFT TISSUES NO ACUTE FINDINGS.) Ordered Tests: Active Orders 24 hr Category Date Time Status Plant Puller STAT Care 09/01/18 23:59 Active Clean Catch Urine Specimen STAT Care 09/01/18 23:14 Active EKG-ER Only STAT Care 09/01/18 23:58 Active IV Insertion-2nd Peripheral STAT Care 09/02/18 00:44 Active CHEST 1 VIEW (PORTABLE) Stat Exams 09/02/18 01:50 Taken LUMBAR SPINE W/O [CT] Stat Exams 09/01/18 23:20 Taken BLOOD CULTURE Stat Lab 09/01/18 23:35 Received CBC W DIFF Stat Lab 09/01/18 23:35 Completed CMP Stat Lab 09/01/18 23:35 Completed HCG,QUALITATIVE URINE Stat Lab 09/01/18 23:35 Completed Lactic Acid Stat Lab 09/01/18 23:35 Completed Lactic Acid Stat Lab 09/02/18 02:18 Completed Manual Differential NC Stat Lab 09/01/18 23:35 Completed PROTIME WITH INR Stat Lab 09/01/18 23:35 Completed SED RATE [Erythrocyte Sedimentation Rate] Stat Lab 09/02/18 00:00 Received Urine Triage Profile Stat Lab 09/01/18 23:35 Completed Medication Summary Generic Name Dose Route Start Last Admin Trade Name Freq PRN Reason Stop Dose Admin Sodium Chloride 1,000 mls @ 999 mls/hr 09/01/18 23:45 09/02/18 02:49 Sodium Chloride 0.9% 1000 Ml IV 09/02/18 01:45 Infused .Q1H1M JEEVAN Infusion Vancomycin HCl 1 gm in 250 mls @ 167 mls/hr 09/02/18 04:21 09/02/18 04:35 Vancomycin 1gm/ Ns 250ml IV 09/02/18 05:50 167 mls/hr STAT ONE Administration Discontinued Medications Generic Name Dose Route Start Last Admin Trade Name Remi PRN Reason Stop Dose Admin Hydromorphone HCl 1 mg 09/01/18 23:16 09/01/18 23:39 Hydromorphone 1 Mg/Ml Ampule IV 09/01/18 23:17 1 mg STAT ONE Administration Hydromorphone HCl Confirm 09/01/18 23:19 Hydromorphone 1 Mg/Ml Ampule Administered 09/01/18 23:20 Dose 1 mg .ROUTE .STK-MED ONE Sodium Chloride 1,000 mls @ 999 mls/hr 09/01/18 23:14 09/02/18 01:17 Sodium Chloride 0.9% 1000 Ml IV 09/02/18 00:14 Infused .Q1H1M STA Infusion Sodium Chloride Confirm 09/01/18 23:19 Sodium Chloride 0.9% 1000 Ml Administered 09/01/18 23:20 Dose 1,000 mls @ ud .ROUTE .STK-MED ONE Sodium Chloride 1,000 mls @ 999 mls/hr 09/01/18 23:58 09/02/18 01:19 Sodium Chloride 0.9% 1000 Ml IV 09/02/18 00:58 Infused .Q1H1M STA Infusion Piperacillin Sod/Tazobactam Sod 3.375 gm in 100 mls @ 200 mls/hr 09/01/18 23: 58 09/02/18 02:47 Zosyn 3.375gm/100 Ml D5w IV 09/02/18 00:27 Infused STAT STA Infusion Piperacillin Sod/Tazobactam Sod Confirm 09/02/18 00:43 Zosyn 3.375gm/100 Ml D5w Administered 09/02/18 00:44 Dose 3.375 gm in 100 mls @ ud IV .STK-MED ONE Vancomycin HCl Confirm 09/02/18 04:33 Vancomycin 1gm/ Ns 250ml Administered 09/02/18 04:34 Dose 250 mls @ ud IV .STK-MED ONE Ondansetron HCl 4 mg 09/01/18 23:14 09/01/18 23:37 Zofran 4 Mg/2 Ml Vial IV 09/01/18 23:15 4 mg STAT ONE Administration Ondansetron HCl Confirm 09/01/18 23:19 Zofran 4 Mg/2 Ml Vial Administered 09/01/18 23:20 Dose 4 mg .ROUTE .STK-MED ONE Lab/Rad Data: Laboratory Result Diagrams 09/01/18 23:35 09/01/18 23:35 Laboratory Results 09/02/18 09/01/18 09/01/18 Range/Units 02:18 23:35 23:35 WBC (4.0-10.5) K/mm3 RBC (4.1-5.4) M/mm3 Hgb (12.0-16.0) gm/dl Hct (35-47) % MCV (78-100) fl MCH (26-32) pg MCHC (32-36) g/dl RDW (11.5-14.0) % Plt Count (150-450) K/mm3 MPV (6-9.5) fl Absolute Granulocytes (1.4-6.9) Segmented Neutrophils (36.0-66.0) % Lymphocytes (Manual) (24-44) % Monocytes (Manual) (0.0-12.0) % Platelet Estimate (NORMAL) RBC Morphology PT 10.8 (9.95-12.35) SECONDS INR 0.93 (0.8-3.0) Sodium (137-145) mmol/L Potassium (3.5-5.1) mmol/L Chloride (98-107) mmol/L Carbon Dioxide (22-30) mmol/L Anion Gap (5-15) MEQ/L BUN (7-17) mg/dL Creatinine (0.52-1.04) mg/dL Estimated GFR ML/MIN Glucose (74-106) mg/dL Lactic Acid 1.7 (0.4-2.0) Calcium (8.4-10.2) mg/dL Total Bilirubin (0.2-1.3) mg/dL AST (14-36) U/L ALT (0-35) U/L Alkaline Phosphatase (38-126) U/L Serum Total Protein (6.3-8.2) g/dL Albumin (3.5-5.0) g/dL Urine Color (YELLOW) Urine Appearance (CLEAR) Urine pH (5-6) Ur Specific [place] (1.005-1.025) Urine Protein (Negative) Urine Ketones (NEGATIVE) Urine Blood (0-5) Cory/ul Urine Nitrite (NEGATIVE) Urine Bilirubin (NEGATIVE) Urine Urobilinogen (0-1) mg/dL Ur Leukocyte Esterase (NEGATIVE) Urine WBC (Auto) (0-5) /HPF U Epithel Cells (Auto) (FEW) /HPF Urine Bacteria (Auto) (NEGATIVE) /HPF Urine Mucus (Auto) (NEGATIVE) /HPF Urine Culture Reflexed (NO) Urine Glucose (NEGATIVE) mg/dL Urine HCG, Qual (Negative) Urine Opiates Level POSITIVE (NEGATIVE) Ur Methadone NEGATIVE (NEGATIVE) Urine Barbiturates NEGATIVE (NEGATIVE) Ur Phencyclidine (PCP) NEGATIVE (NEGATIVE) Urine Amphetamine NEGATIVE (NEGATIVE) U Benzodiazepine Level POSITIVE (NEGATIVE) Urine Cocaine NEGATIVE (NEGATIVE) Urine Marijuana (THC) NEGATIVE (NEGATIVE) 09/01/18 09/01/18 09/01/18 Range/Units 23:35 23:35 23:35 WBC (4.0-10.5) K/mm3 RBC (4.1-5.4) M/mm3 Hgb (12.0-16.0) gm/dl Hct (35-47) % MCV (78-100) fl MCH (26-32) pg MCHC (32-36) g/dl RDW (11.5-14.0) % Plt Count (150-450) K/mm3 MPV (6-9.5) fl Absolute Granulocytes (1.4-6.9) Segmented Neutrophils (36.0-66.0) % Lymphocytes (Manual) (24-44) % Monocytes (Manual) (0.0-12.0) % Platelet Estimate (NORMAL) RBC Morphology PT (9.95-12.35) SECONDS INR (0.8-3.0) Sodium 138 (137-145) mmol/L Potassium 4.4 (3.5-5.1) mmol/L Chloride 100 (98-107) mmol/L Carbon Dioxide 26 (22-30) mmol/L Anion Gap 17.0 H (5-15) MEQ/L BUN 29 H (7-17) mg/dL Creatinine 1.11 H (0.52-1.04) mg/dL Estimated GFR 56.2 ML/MIN Glucose 146 H (74-106) mg/dL Lactic Acid 2.6 H (0.4-2.0) Calcium 10.1 (8.4-10.2) mg/dL Total Bilirubin 0.20 (0.2-1.3) mg/dL AST 31 (14-36) U/L ALT 38 H (0-35) U/L Alkaline Phosphatase 105 (38-126) U/L Serum Total Protein 7.6 (6.3-8.2) g/dL Albumin 4.6 (3.5-5.0) g/dL Urine Color (YELLOW) Urine Appearance (CLEAR) Urine pH (5-6) Ur Specific [place] (1.005-1.025) Urine Protein (Negative) Urine Ketones (NEGATIVE) Urine Blood (0-5) Cory/ul Urine Nitrite (NEGATIVE) Urine Bilirubin (NEGATIVE) Urine Urobilinogen (0-1) mg/dL Ur Leukocyte Esterase (NEGATIVE) Urine WBC (Auto) (0-5) /HPF U Epithel Cells (Auto) (FEW) /HPF Urine Bacteria (Auto) (NEGATIVE) /HPF Urine Mucus (Auto) (NEGATIVE) /HPF Urine Culture Reflexed (NO) Urine Glucose (NEGATIVE) mg/dL Urine HCG, Qual NEGATIVE (Negative) Urine Opiates Level (NEGATIVE) Ur Methadone (NEGATIVE) Urine Barbiturates (NEGATIVE) Ur Phencyclidine (PCP) (NEGATIVE) Urine Amphetamine (NEGATIVE) U Benzodiazepine Level (NEGATIVE) Urine Cocaine (NEGATIVE) Urine Marijuana (THC) (NEGATIVE) 09/01/18 09/01/18 Range/Units 23:35 01:19 WBC 22.9 H (4.0-10.5) K/mm3 RBC 3.97 L (4.1-5.4) M/mm3 Hgb 13.5 (12.0-16.0) gm/dl Hct 40.4 (35-47) % MCV 101.8 H (78-100) fl MCH 34.0 H (26-32) pg MCHC 33.4 (32-36) g/dl RDW 13.6 (11.5-14.0) % Plt Count 271 (150-450) K/mm3 MPV 11.1 H (6-9.5) fl Absolute Granulocytes 19.72 H (1.4-6.9) Segmented Neutrophils 86 H (36.0-66.0) % Lymphocytes (Manual) 9 L (24-44) % Monocytes (Manual) 5 (0.0-12.0) % Platelet Estimate NORMAL (NORMAL) RBC Morphology NORMAL PT (9.95-12.35) SECONDS INR (0.8-3.0) Sodium (137-145) mmol/L Potassium (3.5-5.1) mmol/L Chloride (98-107) mmol/L Carbon Dioxide (22-30) mmol/L Anion Gap (5-15) MEQ/L BUN (7-17) mg/dL Creatinine (0.52-1.04) mg/dL Estimated GFR ML/MIN Glucose (74-106) mg/dL Lactic Acid (0.4-2.0) Calcium (8.4-10.2) mg/dL Total Bilirubin (0.2-1.3) mg/dL AST (14-36) U/L ALT (0-35) U/L Alkaline Phosphatase (38-126) U/L Serum Total Protein (6.3-8.2) g/dL Albumin (3.5-5.0) g/dL Urine Color STRAW (YELLOW) Urine Appearance CLEAR (CLEAR) Urine pH 6.0 (5-6) Ur Specific [place] 1.008 (1.005-1.025) Urine Protein NEGATIVE (Negative) Urine Ketones NEGATIVE (NEGATIVE) Urine Blood NEGATIVE (0-5) Cory/ul Urine Nitrite NEGATIVE (NEGATIVE) Urine Bilirubin NEGATIVE (NEGATIVE) Urine Urobilinogen NORMAL (0-1) mg/dL Ur Leukocyte Esterase NEGATIVE (NEGATIVE) Urine WBC (Auto) 0-2 (0-5) /HPF U Epithel Cells (Auto) RARE (FEW) /HPF Urine Bacteria (Auto) RARE (NEGATIVE) /HPF Urine Mucus (Auto) SLIGHT (NEGATIVE) /HPF Urine Culture Reflexed NO (NO) Urine Glucose NEGATIVE (NEGATIVE) mg/dL Urine HCG, Qual (Negative) Urine Opiates Level (NEGATIVE) Ur Methadone (NEGATIVE) Urine Barbiturates (NEGATIVE) Ur Phencyclidine (PCP) (NEGATIVE) Urine Amphetamine (NEGATIVE) U Benzodiazepine Level (NEGATIVE) Urine Cocaine (NEGATIVE) Urine Marijuana (THC) (NEGATIVE) - Progress Progress: improved, pain not gone completely Progress Note: 09/02/18 00:17 PLACED ONTO SEPSIS PROTOCOL LACTIC ACID 2.6, ADMINISTERED IV NORMAL SALINE 2 LITERS OVER 2 HOURS, AFTER 2 SETS OF BLOOD CULTURES ZOSYN 3.375 GM, ZOFRAN 4MG AND DILAUDID 1MG. 09/02/18 04:25, AFTER 4 LITERS OF NORMAL SALINE LACTIC ACID 2.6 IMPROVED TO 1.7, ALSO ADMINISTERED VANCOMYCIN 1GM IVPB Discussed with : Other (DISCUSSED WITH DR MARKS AT 0330 ACCEPTS TRANSFER TO [facility]IA [facility]) - Departure Time of Disposition: 05:00 Departure Disposition: Transfer Clinical Impression: POSTOPERATIVE LUMBAR INFECTION Condition: Stable Critical Care Time: No Critical Care Time(excluding separately billable procedures): 30-74 minutes Referrals: CELESTINE BERNARD [Primary Care Provider] -
[2018-09-02 00:13] LABS: Amphetamine,Urine NEGATIVE (NEGATIVE); Barbiturate,Urine NEGATIVE (NEGATIVE); Benzodiazepine,Urine POSITIVE (NEGATIVE); Cocaine,Urine NEGATIVE (NEGATIVE); Methadone,Urine NEGATIVE (NEGATIVE); Opiate,Urine POSITIVE (NEGATIVE); PCP,Urine NEGATIVE (NEGATIVE); THC,Urine NEGATIVE (NEGATIVE)
[2018-09-02 00:23] LABS: Lymphocytes 9 % (24-44); Monocyte 5 % (0.0-12.0); Neutrophils 86 % (36.0-66.0); Platelet Estimate NORMAL (NORMAL); Total Cells Counted 100
[2018-09-02] MEDS ORDERED: Zosyn 3.375GM/100 Ml D5W 3.375 GM/100 ML IVPB IV ONE (00:43)
[2018-09-02] MEDS ORDERED: Sodium Chloride 0.9% 1000 ML 2,000 ML ONE (00:43)
[2018-09-02 01:29] LABS: Appearance CLEAR (CLEAR); Bilirubin NEGATIVE (NEGATIVE); Blood NEGATIVE Ery/ul (0-5); Glucose NEGATIVE (NEGATIVE); Ketones NEGATIVE (NEGATIVE); Leukocyte Esterase NEGATIVE (NEGATIVE); Nitrite NEGATIVE (NEGATIVE); Protein,Urine Dip NEGATIVE (Negative); Specific Gravity 1.008 (1.005-1.025); Urobilinogen NORMAL mg/dL (0-1)
[2018-09-02] MEDS ORDERED: Vancomycin 1GM/ Ns 250ML*** 1 GM/250 ML IVPB IV ONE (04:21)
[2018-09-02 04:28] VITALS: BP 97/71; PULSE 86
[2018-09-02] MEDS ORDERED: Vancomycin 1GM/ Ns 250ML*** 250 ML IV ONE (04:33)
[2018-09-02 05:03] VITALS: O2SAT 95
--- NOTE | 2018-09-02 09:17 | XRAY ---
Indication: Low back pain radiating down right leg. Fever. Lumbar surgery August 14, 2018. Multiple contiguous axial images obtained through the lumbar spine. Sagittal and coronal reformatted images obtained. Comparison: August 27, 2018. Stable L4-L5 posterior fusion revision and hemilaminectomy with intact bilateral pedicle screws, spinal rods, bone grafts, and remnant bilateral L5 pedicle screws. Again right L4 pedicle screw tip protrudes through the superior endplate unchanged. Cutaneous bon removed in the interim with previous incisional fluid appearing much smaller. The T12-L3 disc levels again negative for disc herniation, spinal canal, or foraminal stenosis. Remaining L3-S1 levels again limited by beam artifact from spinal hardware. No large disc herniation, spinal canal, or foraminal stenosis. Incidental L3-S1 degenerative vacuum disc phenomena. Sagittal and coronal reformatted images again demonstrates normal alignment with minimal L3-S1 disc space narrowing. No acute compression fracture or subluxation. Visualized noncontrasted soft tissues again demonstrates minimal aortoiliac calcifications and nonobstructing left renal micro-calculus. Impression: 1. Stable postsurgical changes as detailed. Previous incisional fluid collection appears smaller favoring postoperative hematoma/seroma. 2. Stable nonobstructing left renal micro-calculus. 3. No new/acute findings. Comment: Preliminary interpretation was made by [facility]. No critical discrepancy. CT DI 87.90
--- NOTE | 2018-09-02 09:19 | XRAY ---
Indication: Fever and cough. Comparison: August 27, 2018. Portable chest again demonstrates normal heart, lungs, and bony thorax.
== END 2018-09-02 05:41 | disposition short-term general hospital (02) ==
LOC: ED 22:35
DX: T81.40XA Infection following a procedure, unspecified, initial encounter (principal); M54.5 Low back pain; Z79.899 Other long term (current) drug therapy
CPT/HCPCS: 36000; 36415; 71045; 72131; 80053; 80307; 81001; 83605; 84703; 85025; 85610; 85652; 86140; 87040; 93005; 93041; 96360; 96361; 96365; 96367; 96374; 96375; 99285; 99291; J1170; J2405; J2543; J3370

== ENCOUNTER 2018-11-30 14:55 | Emergency (ER) | payer OTHER ==
[2018-11-30] MEDS ORDERED: Phenergan 25 MG INJ IM ONE (15:18)
[2018-11-30] MEDS ORDERED: Hydromorphone 1 mg/ml Ampule IM ONE (15:18)
[2018-11-30] MEDS ORDERED: Phenergan 25 MG INJ ONE (15:21)
[2018-11-30] MEDS ORDERED: Hydromorphone 1 mg/ml Ampule ONE (15:21)
--- NOTE | 2018-11-30 15:24 | ERPHSYRPT ---
- History of Present Illness Time Seen by Provider: 11/30/18 15:10 Source: patient Exam Limitations: no limitations Patient Subjective Stated Complaint: Pt states "I was on my way here for therapy on my back from a surgery and I got a really bad headache on the top of my head and it is running down my back." Triage Nursing Assessment: Pt alert and oriented X 3, skin pwd. Pt ambulates with an upright steady gait, able to speak in clear full sentences. Pt in no apparent respiratory distress. Pt unable to sit still grunting. Physician History: 48 y/o white female presents with sudden onset of top of head headache. occurred on her way here to do her physical therapy. started on top of head and went down to upper back. no low back pain. no visual changes. 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 Quality: sharpness Head Pain Location: occipital (top of scalp) Severity of Pain-Max: moderate Severity of Pain-Current: moderate Recent Head Trauma: no recent headache/trauma Modifying Factors: Improves With: exposure to light Associated Symptoms: sensitive to light, No confusion, No dizziness, No fatigue , No facial pain, No fever/chills, No flushing, No loss of consciousness, No nausea/vomiting, No nasal congestion, No nasal drainage, No neck pain, No sweating, No scotoma, No seizures, No sinus infection, No speech problems, No vision changes, No visual disturbance Previous symptoms: no prior history Allergies/Adverse Reactions: No Known Drug Allergies Allergy (Verified 09/01/18 22:53) Home Medications: Lisinopril 10 mg [Zestril 10 MG] 20 mg PO DAILY 04/20/16 [History] Oxycodone HCl [Oxycodone HCl ER] 40 mg PO BID 10/15/16 [History] Pregabalin [Lyrica 150Mg] 1 tab PO TID 10/15/16 [History] Duloxetine HCl 30 mg [Cymbalta 30 MG Capsule] 90 mg PO DAILY 12/31/16 [ History] Solifenacin Succinate [Vesicare] 10 mg PO DAILY 08/13/17 [History] Trazodone HCl 50 mg [Desyrel 50 mg] 100 mg PO QHS 12/27/17 [History] Clonidine HCl 0.1 mg [Catapres 0.1 MG] 0.1 mg PO BID 08/27/18 [History] Loratadine 10 mg [Claritin 10 mg] 10 mg PO DAILY 08/27/18 [History] Omeprazole 20 MG [Prilosec 20 mg] 20 mg PO DAILY 08/27/18 [History] Oxycodone HCl Cr 20 mg [Oxycontin 20 MG ER] 20 mg PO QID 08/27/18 [History ] Hx Tetanus, Diphtheria Vaccination/Date Given: Yes Hx Influenza Vaccination/Date Given: Yes Hx Pneumococcal Vaccination/Date Given: No Immunizations Up to Date: Yes - Review of Systems Constitutional: No Symptoms Eyes: Photophobia Ears, Nose, & Throat: No Symptoms Respiratory: No Symptoms Cardiac: No Symptoms Abdominal/Gastrointestinal: No Symptoms Genitourinary Symptoms: No Symptoms Musculoskeletal: No Symptoms Skin: No Symptoms Neurological: No Symptoms Psychological: No Symptoms Endocrine: No Symptoms Hematologic/Lymphatic: No Symptoms Immunological/Allergic: No Symptoms All Other Systems: Reviewed and Negative - Past Medical History Pertinent Past Medical History: Yes Neurological History: No Pertinent History ENT History: No Pertinent History Cardiac History: Hypertension Respiratory History: No Pertinent History Endocrine Medical History: No Pertinent History Musculoskeletal History: Arthritis, Osteoarthritis GI Medical History: No Pertinent History History: No Pertinent History Psycho-Social History: Anxiety, Attention Deficit Disorder, Depression Female Reproductive Disorders: No Pertinent History Other Medical History: L5 compression fx at age 19. - Past Surgical History Past Surgical History: Yes Neuro Surgical History: No Pertinent History Cardiac: No Pertinent History Respiratory: No Pertinent History Gastrointestinal: No Pertinent History Genitourinary: No Pertinent History Musculoskeletal: Orthopedic Surgery Female Surgical History: Dilation & Curettage Other Surgical History: lumbar spinal fusion, synovial cyst removed. spinal repair of screws along with cement. - Social History Smoking Status: Current every day smoker How long have you smoked: 26 years Exposure to second hand smoke: Yes Drug Use: none Patient Lives Alone: Yes - Female History Hx Last Menstrual Period: 11/16/2018 Hx Now: No - Nursing Vital Signs Nursing Vital Signs: Initial Vital Signs Temperature 99.7 F 11/30/18 15:02 Pulse Rate 98 H 11/30/18 15:02 Respiratory Rate 18 11/30/18 15:02 Blood Pressure 190/99 11/30/18 15:02 O2 Sat by Pulse Oximetry 97 11/30/18 15:02 Pain Scale Pain Intensity 8 - Physical Exam General Appearance: mild distress, alert, anxiety Eye Exam: PERRL/EOMI, eyes nml inspection Ears, Nose, Throat Exam: normal ENT inspection, moist mucous membranes Neck Exam: normal inspection, non-tender, supple, full range of motion Respiratory Exam: normal breath sounds, lungs clear, airway intact, No chest tenderness, No respiratory distress, No accessory muscle use, No rhonchi, No wheezing, No stridor Cardiovascular Exam: regular rate/rhythm, normal heart sounds, normal peripheral pulses Gastrointestinal/Abdominal Exam: soft, normal bowel sounds, No tenderness, No guarding, No rebound Back Exam: normal inspection, normal range of motion, No CVA tenderness, No vertebral tenderness Extremity Exam: normal inspection, normal range of motion, pelvis stable Mental Status Exam: alert, oriented x 3, cooperative building principal Exam: normal hearing, normal speech, PERRL, tongue midline Coordination/Gait Exam: normal finger to nose Motor/Sensory Exam: no motor deficit, no sensory deficit Skin Exam: normal color, warm, dry Lymphatic Exam: No adenopathy SpO2 Interpretation: normal SpO2: 97 Oxygen Delivery: Room Air - Course Nursing assessment & vital signs reviewed: Yes Ordered Tests: Active Orders 24 hr Category Date Time Status HEAD WITHOUT CONTRAST [CT] Stat Exams 11/30/18 15:25 Completed Medication Summary Discontinued Medications Generic Name Dose Route Start Last Admin Trade Name Remi PRN Reason Stop Dose Admin Hydromorphone HCl 0.5 mg 11/30/18 15:18 11/30/18 15:23 Hydromorphone 1 Mg/Ml Ampule IM 11/30/18 15:19 0.5 mg STAT ONE Administration Hydromorphone HCl Confirm 11/30/18 15:21 Hydromorphone 1 Mg/Ml Ampule Administered 11/30/18 15:22 Dose 1 mg .ROUTE .STK-MED ONE Promethazine HCl 25 mg 11/30/18 15:18 11/30/18 15:23 Phenergan 25 Mg Inj IM 11/30/18 15:19 25 mg STAT ONE Administration Promethazine HCl Confirm 11/30/18 15:21 Phenergan 25 Mg Inj Administered 11/30/18 15:22 Dose 25 mg .ROUTE .STK-MED ONE - Progress Progress: improved, re-examined Air Movement: good Progress Note: 11/30/18 15:54 ct head no intracranial pathology Blood Culture(s) Obtained: No Antibiotics given: No Counseled pt/family regarding: diagnosis, need for follow-up, rad results - Departure Time of Disposition: 15:55 Departure Disposition: Home Clinical Impression: Headache, Hypertension Condition: Stable Critical Care Time: No Referrals: CELESTINE BERNARD [Primary Care Provider] - Additional Instructions: take your blood pressures medication and pain medications as prescribed
--- NOTE | 2018-11-30 15:52 | XRAY ---
Indication: Headache. Multiple contiguous axial images obtained through the head without contrast. Comparison: None Normal appearing brain parenchyma, ventricles, and bony calvarium. Visualized paranasal sinuses and mastoid air cells are clear. Impression: Normal CT head without contrast exam. CTDI 69.25
[2018-11-30 16:10] VITALS: BP 138/79; PULSE 80; O2SAT 95
== END 2018-11-30 16:08 | disposition home or self-care (01) ==
LOC: ED 14:55
DX: R51 Headache (principal); I10 Essential (primary) hypertension; Z79.899 Other long term (current) drug therapy; F17.200 Nicotine dependence, unspecified, uncomplicated
CPT/HCPCS: 70450; 96372; 99284; J1170; J2550

== ENCOUNTER 2019-02-08 17:32 | Emergency (ER) | payer MEDICAID ==
[2019-02-08] MEDS ORDERED: Sodium Chloride 0.9% 1000 ML 1,000 ML IV STA (18:03)
[2019-02-08] MEDS ORDERED: Zofran 4 MG/2 ML VIAL IV ONE (18:03)
[2019-02-08] MEDS ORDERED: Zofran 4 MG/2 ML VIAL ONE (18:08)
[2019-02-08] MEDS ORDERED: Sodium Chloride 0.9% 1000 ML 1,000 ML ONE (18:08)
--- NOTE | 2019-02-08 18:12 | ERPHSYRPT ---
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 has gradually started having increased pain to left side of head, dizziness, blurry vision, left jaw pain, and stiff neck. had a few seconds of loc at the time of the incident. Triage Nursing Assessment: to room per w/c. skin w/d, color normal, resp easy. patient holding left side of head and covering eyes while being triaged. a/o times three, martinez without difficulty. cherry Physician History: 48-year-old white female with history of chronic pain, high blood pressure, arthritis, osteoarthritis, attention deficit disorder, anxiety, depression, L5 compression fracture. Patient arrives with complaint of headache, pain in the left side of her head, pain in her left face pain in her neck symptoms for 5 days. She states a tree branch fell and struck her in the head 5 days ago she states she had loss of consciousness 5 days ago she states she's been nauseous. Patient does have a history of chronic pain syndrome she is apparently is on Lyrica, morphine intermediate release and oxycodone, Past medical history includes high blood pressure, arthritis, osteoarthritis, attention deficit disorder, anxiety, depression, L5 compression fracture Past surgical history includes orthopedic surgery, D&C, lumbar spine fusion, synovial cyst removed, spine repair with screws and cement Timing/Duration: day(s) (5 days) Severity: moderate Modifying Factors: Improves With: medication (patient has prescriptions for Lyrica 150 mg, morphine extended release 15 mg, oxycodone 20 mg) Associated Symptoms: nausea, No vomiting, No abdominal pain, No shortness of breath, No heartburn, No diaphoresis, No cough, No chills, No chest pain, No fever, No loss of appetite, No malaise, No rash, No syncope, No seizure, No weakness Allergies/Adverse Reactions: No Known Drug Allergies Allergy (Verified 02/08/19 17:44) Home Medications: Lisinopril 10 mg [Zestril 10 MG] 20 mg PO DAILY 04/20/16 [History] Oxycodone HCl [Oxycodone HCl ER] 20 mg PO QID 10/15/16 [History] Pregabalin [Lyrica 150Mg] 1 tab PO TID 10/15/16 [History] Duloxetine HCl 30 mg [Cymbalta 30 MG Capsule] 90 mg PO DAILY 12/31/16 [ History] Solifenacin Succinate [Vesicare] 10 mg PO DAILY 08/13/17 [History] Trazodone HCl 50 mg [Desyrel 50 mg] 100 mg PO QHS 12/27/17 [History] Clonidine HCl 0.1 mg [Catapres 0.1 MG] 0.1 mg PO BID 08/27/18 [History] Loratadine 10 mg [Claritin 10 mg] 10 mg PO DAILY 08/27/18 [History] Omeprazole 20 MG [Prilosec 20 mg] 20 mg PO DAILY 08/27/18 [History] Morphine Sulfate Ir 15 mg [Msir 15 mg] 15 mg PO BID 02/08/19 [History] Hx Tetanus, Diphtheria Vaccination/Date Given: Yes (2017) Hx Influenza Vaccination/Date Given: Yes Hx Pneumococcal Vaccination/Date Given: No - Review of Systems Constitutional: Other (pain left side of face), No Fever, No Chills Eyes: No Symptoms, No Eye Pain, No Photophobia Ears, Nose, & Throat: No Ear Pain, No Ear Discharge, No Hearing Changes, No Tinnitus, No Nose Congestion, No Nose Discharge, No Sinus Drainage, No Epistaxis , No Mouth Pain, No Mouth Swelling, No Loose Teeth, No Throat Pain, No Throat Swelling, No Hoarse, No Painful Swallowing, No Snoring, No Stridor Respiratory: No Cough, No Dyspnea Cardiac: No Chest Pain, No Edema, No Syncope Abdominal/Gastrointestinal: Nausea, No Abdominal Pain, No Vomiting, No Diarrhea , No Constipation, No Hematemesis, No Hematochezia, No Melena, No Dysphagia, No Appetite Changes Genitourinary Symptoms: No Dysuria Musculoskeletal: Neck Pain, Injury, No Arthralgias, No Back Pain, No Deformity, No Fall, No Joint Redness, No Joint Pain, No Myalgias, No Other Skin: No Rash Neurological: Headache, No Dizziness, No Focal Weakness, No Gait Changes, No Irritability, No Lethargy, No Parasthesia, No Seizure, No Sensory Changes, No Speech Changes, No Tics, No Tremors, No Vertigo Psychological: No Symptoms Endocrine: No Symptoms All Other Systems: Reviewed and Negative - Past Medical History Pertinent Past Medical History: Yes Neurological History: No Pertinent History ENT History: No Pertinent History Cardiac History: Hypertension Respiratory History: No Pertinent History Endocrine Medical History: No Pertinent History Musculoskeletal History: Arthritis, Osteoarthritis GI Medical History: No Pertinent History History: No Pertinent History Psycho-Social History: Anxiety, Attention Deficit Disorder, Depression Female Reproductive Disorders: No Pertinent History Other Medical History: L5 compression fx at age 19. - Past Surgical History Past Surgical History: Yes Neuro Surgical History: No Pertinent History Cardiac: No Pertinent History Respiratory: No Pertinent History Gastrointestinal: No Pertinent History Genitourinary: No Pertinent History Musculoskeletal: Orthopedic Surgery Female Surgical History: Dilation & Curettage Other Surgical History: lumbar spinal fusion, synovial cyst removed. spinal repair of screws along with cement. - Social History Smoking Status: Current every day smoker How long have you smoked: 26 years Exposure to second hand smoke: Yes Drug Use: none Patient Lives Alone: Yes - Female History Hx Last Menstrual Period: 02/06/19 Hx Now: No - Nursing Vital Signs Nursing Vital Signs: Initial Vital Signs Temperature 98 F 02/08/19 17:37 Pulse Rate 97 H 02/08/19 17:37 Respiratory Rate 16 02/08/19 17:37 Blood Pressure 178/105 02/08/19 17:37 O2 Sat by Pulse Oximetry 96 02/08/19 17:37 Pain Scale Pain Intensity 8 - Physical Exam General Appearance: moderate distress, alert, No other (patient with pain in the left side of headand face) Eye Exam: PERRL/EOMI, eyes nml inspection Ears, Nose, Throat Exam: normal ENT inspection, TMs normal, pharynx normal, moist mucous membranes Neck Exam: normal inspection, supple, full range of motion (patient moving her head spontaneously without problems), No non-tender (neck tender posteriorly) Respiratory Exam: normal breath sounds, lungs clear, No respiratory distress Cardiovascular Exam: regular rate/rhythm, normal heart sounds, normal peripheral pulses Gastrointestinal/Abdomen Exam: soft, normal bowel sounds, No tenderness, No mass Back Exam: normal inspection, normal range of motion, No CVA tenderness, No vertebral tenderness Extremity Exam: normal inspection, normal range of motion, pelvis stable Neurologic Exam: alert, oriented x 3, cooperative, machine tracer II-XII nml as tested, normal mood/affect, nml cerebellar function, nml station & gait, sensation nml, No motor deficits, No sensory deficit, No disoriented, No confusion, No agitation Skin Exam: normal color, warm, dry, No rash Lymphatic Exam: No adenopathy SpO2 Interpretation: normal (96%) SpO2: 96 - Course Nursing assessment & vital signs reviewed: Yes - CT Exams Head CT Interpretation: Discussed w/radiologist (head CT: Stable normal head compared to November 30, 2018) Maxillofacial Bones CT Interpretation: Discussed w/radiologist (CT facial bones: No comparisons. Minimal bilateral paranasal sinus disease. Otherwise negative CT facial bones.) Cervical Spine CT Interpretation: Discussed w/radiologist (CT cervical spine: Impression no comparisons. Cervical lordotic reversal positional versus spasm. Mild multilevel bilateral degenerative facets. Negative fracture/subluxation.) Ordered Tests: Medication Summary Discontinued Medications Generic Name Dose Route Start Last Admin Trade Name Freq PRN Reason Stop Dose Admin Sodium Chloride 1,000 mls @ 999 mls/hr 02/08/19 18:03 02/08/19 19:12 Sodium Chloride 0.9% 1000 Ml IV 02/08/19 19:03 Infused .Q1H1M STA Infusion Sodium Chloride Confirm 02/08/19 18:08 Sodium Chloride 0.9% 1000 Ml Administered 02/08/19 18:09 Dose 1,000 mls @ ud .ROUTE .STK-MED ONE Morphine Sulfate 4 mg 02/08/19 18:36 02/08/19 19:13 Morphine Sulfate 4 Mg Inj IV 02/08/19 18:37 4 mg STAT ONE Administration Morphine Sulfate Confirm 02/08/19 19:11 Morphine Sulfate 4 Mg Inj Administered 02/08/19 19:12 Dose 4 mg .ROUTE .STK-MED ONE Ondansetron HCl 4 mg 02/08/19 18:03 02/08/19 18:12 Zofran 4 Mg/2 Ml Vial IV 02/08/19 18:04 4 mg STAT ONE Administration Ondansetron HCl Confirm 02/08/19 18:08 Zofran 4 Mg/2 Ml Vial Administered 02/08/19 18:09 Dose 4 mg .ROUTE .STK-MED ONE Lab/Rad Data: Laboratory Result Diagrams 02/08/19 18:13 02/08/19 18:13 Laboratory Results 02/08/19 02/08/19 02/08/19 Range/Units 18:13 18:13 18:13 WBC 6.1 (4.0-10.5) K/mm3 RBC 4.09 L (4.1-5.4) M/mm3 Hgb 13.4 (12.0-16.0) gm/dl Hct 41.5 (35-47) % MCV 101.5 H (78-100) fl MCH 32.7 H (26-32) pg MCHC 32.3 (32-36) g/dl RDW 13.9 (11.5-14.0) % Plt Count 193 (150-450) K/mm3 MPV 11.8 H (6-9.5) fl Gran % 46.8 (36.0-66.0) % Eos # (Auto) 0.27 (0-0.5) Absolute Lymphs (auto) 2.21 (1.0-4.6) Absolute Monos (auto) 0.74 (0.0-1.3) Lymphocytes % 36.3 (24.0-44.0) % Monocytes % 12.2 H (0.0-12.0) % Eosinophils % 4.4 (0.00-5.0) % Basophils % 0.3 (0.0-0.4) % Absolute Granulocytes 2.85 (1.4-6.9) Basophils # 0.02 (0-0.4) Sodium 141 (137-145) mmol/L Potassium 3.8 (3.5-5.1) mmol/L Chloride 106 (98-107) mmol/L Carbon Dioxide 24 (22-30) mmol/L Anion Gap 14.5 (5-15) MEQ/L BUN 14 (7-17) mg/dL Creatinine 0.62 (0.52-1.04) mg/dL Estimated GFR > 60.0 ML/MIN Glucose 86 (74-106) mg/dL Calcium 9.4 (8.4-10.2) mg/dL Total Bilirubin 0.50 (0.2-1.3) mg/dL AST 23 (14-36) U/L ALT 29 (0-35) U/L Alkaline Phosphatase 109 (38-126) U/L Serum Total Protein 8.0 (6.3-8.2) g/dL Albumin 4.6 (3.5-5.0) g/dL Serum , Qual NEGATIVE (Negative) - Progress Progress: improved Progress Note: 02/08/19 18:12 48-year-old white female with history of high blood pressure, arthritis, osteoarthritis, attention deficit disorder, anxiety, depression, L5 compression fracture. Patient who has chronic pain for her back and is on Lyrica, morphine extended release, and oxycodone She states she was struck in the left side of her head with a tree branch 5 days ago. [facility] with complaint of a headache neck pain facial pain. They sent her here for evaluation. Patient states she is taking her pain medications as prescribed by her pain flight control manager. She does state that she drove herself here. I've offered the patient IV fluids labs head CT CT facial bones she is agreeable to obtaining these. At this time I will not be giving the patient narcotic analgesia she will need to arrange a ride home I do see that she is on the above noted medications She apparently has filled oxycodone 20 mg #120 tablets on January 10, 2019. She has filled morphine sulfate ER 15 mg #60 tablets on January 24, 2019 She has also felt Lyrica 150 mg #21 tablets on February 02, 2019. I have offered patient Zofran as well her IV fluids would like to see patient's head CT Will consider morphine once patient can of obtain a ride May consider Toradol after head CT 02/08/19 18:18 02/08/19 19:03 the patient's c spine, ct head and ct faciall bones are all normal. Patient's CBC chemistry are normal hCG is negative. Patient has not provided a urine sample and urine and urine drug screen are canceled. I have ordered morphine 4 mg IV for this patient. Patient is already on Lyrica 150 mg, morphine sulfate 15 mg twice a day and oxycodone 20 mg patient received 120 of these on January 10, 2019. Patient is stable neurologically. Patient will need to get a ride home before she can received morphine as she states she drove herself here. Will discharge patient she is to continue her pain medications as prescribed by her pain flight control manager. She will be advised to follow-up with her family medical doctor. Impression 1 head contusion. 2 concussion. 3 headache. - Departure Time of Disposition: 19:06 Departure Disposition: Home Clinical Impression: Head contusion Qualifiers: Encounter type: initial encounter Contusion of head detail: unspecified part of head Qualified Code(s): S00.93XA - Contusion of unspecified part of head, initial encounter Concussion Qualifiers: Encounter type: initial encounter Loss of consciousness presence/duration: with LOC of unspecified duration Qualified Code(s): S06.0X9A - Concussion with loss of consciousness of unspecified duration, initial encounter Headache Qualifiers: Headache type: unspecified Headache chronicity pattern: unspecified pattern Intractability: not intractable Qualified Code(s): R51 - Headache Condition: Fair Critical Care Time: No Referrals: CELESTINE BERNARD [Primary Care Provider] - Instructions: Concussion, Adult (DC) Additional Instructions: Return home. Rest in a dark quiet room. Cold packs to contused areas 24-48 hours. Narcotic analgesia as prescribed by your pain flight control manager. Use state you have Zofran at home take it is through directed by your family doctor/pain flight control manager. Follow-up with your family doctor. Call and make an appointment. Follow-up with your pain flight control manager. Return for acute distress or for severe symptoms
[2019-02-08 18:28] LABS: BASOPHIL % 0.3 % (0.0-0.4); Basophil (Absolute #) 0.02 (0-0.4); Eosinophil % 4.4 % (0.00-5.0); Eosinophil (Absolute #) 0.27 (0-0.5); Granulocyte Absolute (ANC) 2.85 (1.4-6.9); Granulocytes % 46.8 % (36.0-66.0); Hematocrit 41.5 % (35-47); Hemoglobin 13.4 gm/dl (12.0-16.0); Lymphocyte (Absolute #) 2.21 (1.0-4.6); Lymphocytes % 36.3 % (24.0-44.0); Mean Cell Volume 101.5 fl (78-100); Mean Corpuscular Hgb Concent. 32.3 g/dl (32-36); Mean Platelet Volume 11.8 fl (6-9.5); Monocyte (Absolute #) 0.74 (0.0-1.3); Monocytes % 12.2 % (0.0-12.0); Platelet Count 193 K/mm3 (150-450); Red Blood Count 4.09 M/mm3 (4.1-5.4); Red Cell Distribution Width 13.9 % (11.5-14.0); White Blood Count 6.1 K/mm3 (4.0-10.5)
[2019-02-08 18:32] LABS: Mean Corpuscular Hemoglobin 32.7 pg (26-32)
[2019-02-08 18:35] LABS: ALBUMIN 4.6 g/dL (3.5-5.0); ALKALINE PHOSPHATASE 109 U/L (38-126); ANION GAP 14.5 MEQ/L (5-15); BLOOD UREA NITROGEN 14 mg/dL (7-17); CHLORIDE 106 mmol/L (98-107); Calcium 9.4 mg/dL (8.4-10.2); Carbon Dioxide 24 mmol/L (22-30); Creatinine 1 0.62 mg/dL (0.52-1.04); Glucose 86 mg/dL (74-106); Potassium 3.8 mmol/L (3.5-5.1); SGOT/AST 23 U/L (14-36); SGPT/ALT 29 U/L (0-35); SODIUM 141 mmol/L (137-145)
[2019-02-08] MEDS ORDERED: MORPHINE SULFATE 4 MG INJ IV ONE (18:36)
[2019-02-08] MEDS ORDERED: MORPHINE SULFATE 4 MG INJ ONE (19:11)
[2019-02-08 19:39] VITALS: BP 153/92; PULSE 78
--- NOTE | 2019-02-09 08:39 | XRAY ---
Indication: Pain following injury last week. Multiple contiguous axial images obtained through the head without contrast. Comparison: November 30, 2018. Again normal appearing brain parenchyma, ventricles, and bony calvarium. Minimal mucosal thickening of both ethmoid and both sphenoid sinuses. Mastoid air cells are clear. Impression: New minimal paranasal sinus disease. Remaining CT head without contrast exam is again normal. CT DI 50.87
--- NOTE | 2019-02-09 08:41 | XRAY ---
Indication: Pain following injury last week. Multiple contiguous axial images obtained through the cervical spine. Sagittal and coronal reformatted images obtained. Comparison: None Axial images negative for acute fracture, suspicious bony lesions, or spinal canal stenosis. Minimal C3-C6 degenerative endplate spurring. Also mild multilevel bilateral degenerative facet hypertrophy, left greater than right. Sagittal and coronal reformatted images demonstrates mild cervical lordotic reversal, positional versus paraspinal spasm. Minimal C4-C5 disc space narrowing. No acute compression fracture, subluxation, or jumped facet. Normal appearing craniocervical junction. Visualized noncontrasted soft tissues including lung apices unremarkable. Impression: 1. Cervical lordotic reversal, positional versus paraspinal spasm. 2. Negative acute fracture/subluxation. 3. Multilevel degenerative changes. CT DI 58.28
--- NOTE | 2019-02-09 08:45 | XRAY ---
Indication: Pain following injury last week. Left facial swelling. Multiple contiguous axial images obtained through the facial bones. Sagittal and coronal reformatted images obtained. Comparison: None Right dental amalgam produces beam artifact. Otherwise no acute fracture, suspicious bony lesions, or radiopaque foreign body. Orbits including roof, stevenson, and floors intact. Minimal mucosal thickening of both ethmoid, both sphenoid, and both maxillary sinuses without fluid leveling. Mild nasoseptal deviation to the left. Remaining visualized noncontrasted soft tissues unremarkable. CT head and CT cervical spine reported separately. Impression: 1. Minimal paranasal sinus disease and mild nasoseptal deviation. 2. Remaining CT facial bones is negative. CT DI 59.47
[2019-02-10 21:20] VITALS: O2SAT 96
== END 2019-02-08 19:45 | disposition home or self-care (01) ==
LOC: ED 17:32
DX: S00.93XA Contusion of unspecified part of head, initial encounter (principal); S06.0X9A Concussion with loss of consciousness of unspecified duration, initial encounter; R51 Headache; G89.4 Chronic pain syndrome; F41.9 Anxiety disorder, unspecified; M19.90 Unspecified osteoarthritis, unspecified site; W20.8XXA Other cause of strike by thrown, projected or falling object, initial encounter; Y93.9 Activity, unspecified
CPT/HCPCS: 36000; 36415; 70450; 70486; 72125; 80053; 81025; 85025; 96360; 96374; 96375; 99284; J2270; J2405

== ENCOUNTER 2020-09-26 06:02 | Day surgery (SDC) | payer OTHER ==
[2020-09-26] MEDS ORDERED: Lactated Ringers 1,000 ML IV SCH (06:30)
[2020-09-26] MEDS ORDERED: Versed 2 MG/2 ML Injection ONE (08:00)
[2020-09-26] MEDS ORDERED: DIPRIVAN 200 MG/20 ML IV ONE ×2 (08:29)
[2020-09-26 09:16] VITALS: BP 120/88; PULSE 88; O2SAT 96
--- NOTE | 2020-09-26 12:26 | OP ---
SURGERY DATE/TIME: 09/26/2020 0757 PREOPERATIVE DIAGNOSES: 1) Persistent nausea and vomiting. 2) Abdominal pain. 3) Intermittent constipation. POSTOPERATIVE DIAGNOSES: 1) Normal EGD. 2) Normal colon. PROCEDURES: 1) EGD. 2) Colonoscopy. SURGEON: Crow Delacruz M.D. ANESTHESIA: MAC by Richard Marinelli CRNA. ESTIMATED BLOOD LOSS: Minimal. SPECIMENS: Two cold forceps biopsies taken from the duodenum and sent for celiac testing. DESCRIPTION OF PROCEDURE: After informed written consent was obtained, the patient was taken to the endoscopy suite. She underwent monitored anesthesia after a bite block was inserted and she had been placed in the Left lateral decubitus position. The endoscope was inserted in the posterior oropharynx and under direct visualization the esophagus was easily traversed. The esophageal mucosa had normal appearance free of any lesions or defects. Gastroesophageal junction had a normal appearance upon entry into the stomach. The gastric cavity had a normal rugated gastric mucosa. No obvious lesions or defects were encountered. The pylorus was traversed and the duodenum had a normal villous mucosal appearance with no obvious abnormalities. Two small bowel cold forceps biopsies were taken from the duodenum and sent for Helicobacter pylori testing. Upon withdrawal again all mucosal structures had no gross abnormalities upon inspection. The scope was removed and the scopes were switched. Digital rectal exam showed normal sphincter tone and no internal lesions. The scope was inserted in the rectum and sequentially the entire colonic mucosa was traversed. Ileocecal valve was verified with direct visualization. Upon withdrawal careful mucosal inspection revealed no gross abnormalities. There were some scattered liquid stool but prep was noted to be fair. Prior to withdrawal retroflexion was performed and showed no internal lesions. The scope was removed and the patient was transferred to the recovery room in good condition.
== END 2020-09-26 09:21 | disposition home or self-care (01) ==
LOC: SDC 06:02
PROVIDERS: ATTEND Family Medicine
DX: R11.2 Nausea with vomiting, unspecified (principal); R10.9 Unspecified abdominal pain; K59.00 Constipation, unspecified; I10 Essential (primary) hypertension; Z79.899 Other long term (current) drug therapy
CPT/HCPCS: 84703; 88305; 93005; J2250; J2704

== ENCOUNTER 2022-04-09 05:59 | Day surgery (SDC) | payer OTHER ==
[2022-04-09] MEDS ORDERED: Lactated Ringers 1,000 ML IV SCH (06:30)
[2022-04-09] MEDS ORDERED: DIPRIVAN 200 MG/20 ML IV ONE (08:02)
[2022-04-09] MEDS ORDERED: Versed 2 MG/2 ML Injection ONE (08:02)
[2022-04-09] MEDS ORDERED: Xylocaine-Mpf 2% 5 Ml Vial ONE (08:02)
[2022-04-09 09:20] VITALS: O2SAT 97
[2022-04-09 09:22] VITALS: BP 120/84; PULSE 82
--- NOTE | 2022-04-09 10:36 | OP ---
SURGERY DATE/TIME: 04/09/2022 0813 PREOPERATIVE DIAGNOSES: 1) Abdominal pain. 2) Persistent vomiting. POSTOPERATIVE DIAGNOSIS: Normal exam. PROCEDURE: EGD. SURGEON: Crow Delacruz M.D. ANESTHESIA: MAC by Efren Jackson CRNA. ESTIMATED BLOOD LOSS: Minimal. SPECIMENS: There were two cold forceps biopsies taken from the duodenum for celiac. DESCRIPTION OF PROCEDURE: After informed written consent was obtained, the patient was taken to the endoscopy suite. She was placed in left lateral decubitus position and a bite block was inserted and anesthesia was titrated to the desired level of consciousness. The endoscope was inserted into the posterior oropharynx and under direct visualization the esophagus was easily traversed. The esophageal mucosa had a normal mucosal appearance free of any lesions or defects. The gastroesophageal junction likewise appeared normal. Upon entering the stomach there was a normal rugated gastric mucosa free of any lesions or defects. The pylorus was traversed. The duodenum had a normal mucosal appearance with villous architecture on exam. Two small cold forceps biopsies were taken and sent for celiac disease based on symptomatology. There was minimal blood loss. Upon withdrawal again the gastric antrum was free of any lesions or defects. Retroflexion showed a normal superior aspect of the gastric mucosa. No obvious hernia was appreciable. The gastroesophageal junction and esophageal mucosa again were all within normal limits upon withdrawal. The scope was removed and the patient was transferred to the recovery room in good condition.
== END 2022-04-09 09:15 | disposition home or self-care (01) ==
LOC: SDC 05:59
PROVIDERS: ATTEND Family Medicine
DX: R10.84 Generalized abdominal pain (principal); R11.10 Vomiting, unspecified
CPT/HCPCS: 84703; 93005; J2250; J2704

== ENCOUNTER 2022-05-12 12:05 | Observation (INO) | payer OTHER ==
[2022-05-12] MEDS ORDERED: Sodium Chloride 0.9% 1000 ML 1,000 ML IV STA ×2 (12:13→13:21)
--- NOTE | 2022-05-12 12:13 | ERPHSYRPT ---
- History of Present Illness Time Seen by Provider: 05/12/22 12:13 Source: patient, EMS Exam Limitations: no limitations Physician History: This is a 51-year-old white female patient of Dr. Tai Penny who presents via EMS with complaint of headache body aches fevers and chills. She did not measure her temperature at home. She arrives afebrile in the emergency de partment. Patient has had no vomiting or diarrhea. She denies cough. She does not have any chest pain. She does not have any shortness of breath. She has no abdominal pain. Patient has no known exposures to individuals similar symptoms or with diagnosis of flu. Patient has a history of degenerative disc disease, osteoarthritis, anxiety, depression, ADD, gastroesophageal reflux disease, and has a history of opioid abuse and is on Suboxone. Patient is a current daily smoker of cigarettes. Timing/Duration: today Cough Quality/Degree: no cough Possible Cause: no prior episodes Modifying Factors: Improves With: nothing Associated Symptoms: fever, chills, dizziness, headache, muscle aches Allergies/Adverse Reactions: No Known Drug Allergies Allergy (Verified 05/12/22 12:18) Home Medications: Pregabalin [Lyrica 150Mg] 1 tab PO TID 10/15/16 [History] Duloxetine HCl 30 mg [Cymbalta 30 MG Capsule] 90 mg PO DAILY 12/31/16 [History] Solifenacin Succinate [Vesicare] 10 mg PO DAILY 08/13/17 [History] Trazodone HCl 50 mg [Desyrel 50 mg] 150 mg PO QHS 12/27/17 [History] Celecoxib [Celebrex] 200 mg PO DAILY 09/18/20 [History] Buprenorphine 1 each TD UD 05/12/22 [History] Buprenorphine HCl/Naloxone HCl [Buprenorphin-Naloxon 8-2 mg Sl] 1 each SL TID 05/12/22 [History] Linaclotide [Linzess] 145 mcg PO UD 05/12/22 [History] Lisdexamfetamine Dimesylate [Vyvanse] 60 mg PO DAILY 05/12/22 [History] Lisinopril/Hydrochlorothiazide [Lisinopril-Hctz 20-12.5 mg Tab] 1 tab PO DAILY 05/12/22 [History] Olanzapine 5 mg [zyPREXA 5MG TABLET] 5 mg PO DAILY 05/12/22 [History] Omeprazole 20 mg PO DAILY 05/12/22 [History] Hx Tetanus, Diphtheria Vaccination/Date Given: Yes (2017) Hx Influenza Vaccination/Date Given: Yes Hx Pneumococcal Vaccination/Date Given: No Travel Risk - International Travel Have you traveled outside of the country in past 3 weeks: No - Coronavirus Screening Are you exhibiting any of the following symptoms?: Yes Symptoms: Fever, Headaches/Body Aches/Fatigue Close contact with a COVID-19 positive Pt in past 14-21 Days: No - Review of Systems Constitutional: Fever, Chills Eyes: No Symptoms Ears, Nose, & Throat: No Symptoms Respiratory: No Symptoms Cardiac: No Symptoms Abdominal/Gastrointestinal: No Symptoms Genitourinary Symptoms: No Symptoms Musculoskeletal: Arthralgias, Myalgias Skin: No Symptoms Neurological: No Symptoms Psychological: No Symptoms Endocrine: No Symptoms Hematologic/Lymphatic: No Symptoms Immunological/Allergic: No Symptoms All Other Systems: Reviewed and Negative - Past Medical History Pertinent Past Medical History: Yes Neurological History: Migraines ENT History: No Pertinent History Cardiac History: Hypertension Respiratory History: No Pertinent History Endocrine Medical History: No Pertinent History Musculoskeletal History: Degenerative Disk Disease, Osteoarthritis GI Medical History: GERD History: No Pertinent History Psycho-Social History: Anxiety, Attention Deficit Disorder, Depression Female Reproductive Disorders: No Pertinent History Other Medical History: SX HX: HAS HAD TOTAL OF 4 BACK SURGERIES - FIRST APPROXIMATELY 2017 AND MOST RECENT 02/21/2021. hx of opioid abuse severe upper abd pain and rt side off on and getting worse over last 2.5 years. with vomiting,stenosis - Past Surgical History Past Surgical History: Yes Neuro Surgical History: No Pertinent History Cardiac: No Pertinent History Respiratory: No Pertinent History Gastrointestinal: No Pertinent History Genitourinary: No Pertinent History Musculoskeletal: Orthopedic Surgery Female Surgical History: Dilation & Curettage Other Surgical History: lumbar spinal fusion, synovial cyst removed. spinal repair of screws along with cement. states "have had about 6 colonoscopy with polyps", HX OF PEA during anesthesia. - Social History Smoking Status: Current every day smoker How long have you smoked: age 23 Exposure to second hand smoke: No Drug Use: none Patient Lives Alone: Yes - Nursing Vital Signs Nursing Vital Signs: Initial Vital Signs Temperature 97.5 F 05/12/22 12:09 Pulse Rate 91 H 05/12/22 12:09 Blood Pressure 145/86 05/12/22 12:09 O2 Sat by Pulse Oximetry 98 05/12/22 12:09 Pain Scale Pain Intensity 0 - Physical Exam General Appearance: no apparent distress, alert, anxiety Eye Exam: PERRL/EOMI, eyes nml inspection Ears, Nose, Throat Exam: normal ENT inspection, moist mucous membranes Neck Exam: normal inspection, non-tender, supple, full range of motion Respiratory Exam: normal breath sounds, lungs clear, airway intact, No chest tenderness, No respiratory distress Cardiovascular Exam: regular rate/rhythm, normal heart sounds, normal peripheral pulses Gastrointestinal/Abdomen Exam: soft, normal bowel sounds, No tenderness Pelvic Exam: not done Rectal Exam: not done Back Exam: normal inspection, normal range of motion, No CVA tenderness, No vertebral tenderness Extremity Exam: normal inspection, normal range of motion, pelvis stable Neurologic Exam: alert, oriented x 3, cooperative, fiction and nonfiction author II-XII nml as tested, normal mood/affect, nml cerebellar function, nml station & gait, sensation nml Skin Exam: normal color, warm, dry Lymphatic Exam: No adenopathy SpO2 Interpretation: normal O2 Delivery: Room Air - Course Nursing assessment & vital signs reviewed: Yes Ordered Tests: Active Orders 24 hr Category Date Time Status Hand Presser STAT Care 05/12/22 12:14 Active Clean Catch Urine Specimen STAT Care 05/12/22 14:15 Active IV Insertion STAT Care 05/12/22 12:13 Active Pulse Oximetry (ED) STAT Care 05/12/22 12:13 Active CHEST 1 VIEW (PORTABLE) Stat Exams 05/12/22 12:13 Completed HEAD WITHOUT CONTRAST [CT] Stat Exams 05/12/22 14:05 Ordered BLOOD CULTURE Stat Lab 05/12/22 12:30 Received CBC W DIFF Stat Lab 05/12/22 12:30 Completed CMP Stat Lab 05/12/22 12:30 Completed Lactic Acid Stat Lab 05/12/22 12:36 Completed Coal Screen Stat Lab 05/12/22 12:30 Completed UA W/RFX CULTURE Stat Lab 05/12/22 12:54 Completed Urine Triage Profile Stat Lab 05/12/22 14:23 Ordered Transfer Order Routine Transfer 05/12/22 Ordered Medication Summary Discontinued Medications Generic Name Dose Route Start Last Admin Trade Name Freq PRN Reason Stop Dose Admin Sodium Chloride 1,000 mls @ 999 mls/hr 05/12/22 12:13 05/12/22 14:16 Sodium Chloride 0.9% 1000 Ml IV 05/12/22 13:13 Infused .Q1H1M STA Infusion Sodium Chloride Confirm 05/12/22 12:40 Sodium Chloride 0.9% 1000 Ml Administered 05/12/22 12:41 Dose 1,000 mls @ ud .ROUTE .STK-MED ONE Sodium Chloride 1,000 mls @ 999 mls/hr 05/12/22 13:21 05/12/22 13:57 Sodium Chloride 0.9% 1000 Ml IV 05/12/22 14:21 999 mls/hr .Q1H1M STA Administration Sodium Chloride Confirm 05/12/22 13:54 Sodium Chloride 0.9% 1000 Ml Administered 05/12/22 13:55 Dose 1,000 mls @ ud .ROUTE .STK-MED ONE Lorazepam 1 mg 05/12/22 14:00 05/12/22 14:03 Lorazepam 2 Mg/1 Ml 2 Mg Vial IV 05/12/22 14:01 1 mg STAT ONE Administration Lorazepam Confirm 05/12/22 14:03 Lorazepam 2 Mg/1 Ml 2 Mg Vial Administered 05/12/22 14:04 Dose 2 mg .ROUTE .STK-MED ONE Potassium Chloride 10 meq 05/12/22 13:51 05/12/22 13:57 Potassium Chloride Tab 10 Meq Tab PO 05/12/22 13:52 10 meq STAT ONE Administration Potassium Chloride Confirm 05/12/22 13:54 Potassium Chloride Tab 10 Meq Tab Administered 05/12/22 13:55 Dose 10 meq PO .STK-MED ONE Lab/Rad Data: Laboratory Result Diagrams 05/12/22 12:30 05/12/22 12:30 Laboratory Results 05/12/22 05/12/22 05/12/22 Range/Units 12:54 12:36 12:30 WBC (4.0-10.5) x10^3/uL RBC (4.1-5.4) x10^6/uL Hgb (12.0-16.0) g/dL Hct (35-47) % MCV (78-100) fL MCH (26-32) pg MCHC (32-36) g/dL RDW (11.5-14.0) % Plt Count (150-450) x10^3/uL MPV (7.5-11.0) fL Gran % (36.0-66.0) % Immature Gran % (Auto) (0.00-0.4) % Nucleat RBC Rel Count (0.00-0.1) % Eos # (Auto) (0-0.5) x10^3/uL Immature Gran # (Auto) (0.00-0.03) x10^3u/L Absolute Lymphs (auto) (1.0-4.6) x10^3/uL Absolute Monos (auto) (0.0-1.3) x10^3/uL Absolute Nucleated RBC (0.00-0.01) x10^3u/L Lymphocytes % (24.0-44.0) % Monocytes % (0.0-12.0) % Eosinophils % (0.00-5.0) % Basophils % (0.0-0.4) % Absolute Granulocytes (1.4-6.9) x10^3/uL Basophils # (0-0.4) x10^3/uL Sodium (137-145) mmol/L Potassium (3.5-5.1) mmol/L Chloride (98-107) mmol/L Carbon Dioxide (22-30) mmol/L Anion Gap (5-15) MEQ/L BUN (7-17) mg/dL Creatinine (0.52-1.04) mg/dL Estimated GFR ML/MIN Glucose (74-106) mg/dL Lactic Acid 3.7 H (0.4-2.0) Calcium (8.4-10.2) mg/dL Total Bilirubin (0.2-1.3) mg/dL AST (14-36) U/L ALT (0-35) U/L Alkaline Phosphatase (38-126) U/L Serum Total Protein (6.3-8.2) g/dL Albumin (3.5-5.0) g/dL Urinalys Dipstick Clnc MAIN LAB Urine Color YELLOW (YELLOW) Urine Appearance CLEAR (CLEAR) Urine pH 7.0 (5-6) Ur Specific [place] 1.015 (1.005-1.025) POC Urine Protein Conf NEGATIVE (Negative) Urine Ketones MODERATE-40 (NEGATIVE) Urine Nitrite NEGATIVE (NEGATIVE) Urine Bilirubin NEGATIVE (NEGATIVE) Urine Urobilinogen 1 (0-1) mg/dL Urine Leukocytes NEGATIVE (NEGATIVE) Urine WBC (Auto) 3-5 (0-5) /HPF Urine RBC (Auto) 0-2 (0-2) /HPF U Epithel Cells (Auto) FEW (FEW) /HPF Urine Bacteria (Auto) RARE (NEGATIVE) /HPF Urine RBC NEGATIVE (0-5) Cory/ul Urine Mucus (Auto) SLIGHT (NEGATIVE) /HPF Ur Culture Indicated? NO Urine Glucose 100 (NEGATIVE) mg/dL Monoscreen (Negative) Influenza Type A Ag NEGATIVE (NEGATIVE) Influenza Type B Ag NEGATIVE (NEGATIVE) RSV (PCR) NEGATIVE (Negative) SARS-CoV-2 (PCR) NEGATIVE (NEGATIVE) Group A Strep Antibody (NEGATIVE) 05/12/22 05/12/22 05/12/22 Range/Units 12:30 12:30 12:30 WBC (4.0-10.5) x10^3/uL RBC (4.1-5.4) x10^6/uL Hgb (12.0-16.0) g/dL Hct (35-47) % MCV (78-100) fL MCH (26-32) pg MCHC (32-36) g/dL RDW (11.5-14.0) % Plt Count (150-450) x10^3/uL MPV (7.5-11.0) fL Gran % (36.0-66.0) % Immature Gran % (Auto) (0.00-0.4) % Nucleat RBC Rel Count (0.00-0.1) % Eos # (Auto) (0-0.5) x10^3/uL Immature Gran # (Auto) (0.00-0.03) x10^3u/L Absolute Lymphs (auto) (1.0-4.6) x10^3/uL Absolute Monos (auto) (0.0-1.3) x10^3/uL Absolute Nucleated RBC (0.00-0.01) x10^3u/L Lymphocytes % (24.0-44.0) % Monocytes % (0.0-12.0) % Eosinophils % (0.00-5.0) % Basophils % (0.0-0.4) % Absolute Granulocytes (1.4-6.9) x10^3/uL Basophils # (0-0.4) x10^3/uL Sodium 140 (137-145) mmol/L Potassium 3.3 L (3.5-5.1) mmol/L Chloride 102 (98-107) mmol/L Carbon Dioxide 26 (22-30) mmol/L Anion Gap 15.5 H (5-15) MEQ/L BUN 12 (7-17) mg/dL Creatinine 0.59 (0.52-1.04) mg/dL Estimated GFR > 60.0 ML/MIN Glucose 152 H (74-106) mg/dL Lactic Acid (0.4-2.0) Calcium 10.1 (8.4-10.2) mg/dL Total Bilirubin 0.60 (0.2-1.3) mg/dL AST 28 (14-36) U/L ALT 23 (0-35) U/L Alkaline Phosphatase 137 H (38-126) U/L Serum Total Protein 7.4 (6.3-8.2) g/dL Albumin 4.5 (3.5-5.0) g/dL Urinalys Dipstick Clnc Urine Color (YELLOW) Urine Appearance (CLEAR) Urine pH (5-6) Ur Specific [place] (1.005-1.025) POC Urine Protein Conf (Negative) Urine Ketones (NEGATIVE) Urine Nitrite (NEGATIVE) Urine Bilirubin (NEGATIVE) Urine Urobilinogen (0-1) mg/dL Urine Leukocytes (NEGATIVE) Urine WBC (Auto) (0-5) /HPF Urine RBC (Auto) (0-2) /HPF U Epithel Cells (Auto) (FEW) /HPF Urine Bacteria (Auto) (NEGATIVE) /HPF Urine RBC (0-5) Cory/ul Urine Mucus (Auto) (NEGATIVE) /HPF Ur Culture Indicated? Urine Glucose (NEGATIVE) mg/dL Monoscreen NEGATIVE (Negative) Influenza Type A Ag (NEGATIVE) Influenza Type B Ag (NEGATIVE) RSV (PCR) (Negative) SARS-CoV-2 (PCR) (NEGATIVE) Group A Strep Antibody NOT DETECTED (NEGATIVE) 05/12/22 Range/Units 12:30 WBC 8.7 (4.0-10.5) x10^3/uL RBC 4.41 (4.1-5.4) x10^6/uL Hgb 14.3 (12.0-16.0) g/dL Hct 42.6 (35-47) % MCV 96.6 (78-100) fL MCH 32.4 H (26-32) pg MCHC 33.6 (32-36) g/dL RDW 12.4 (11.5-14.0) % Plt Count 188 (150-450) x10^3/uL MPV 11.5 H (7.5-11.0) fL Gran % 83.5 H (36.0-66.0) % Immature Gran % (Auto) 0.2 (0.00-0.4) % Nucleat RBC Rel Count 0.0 (0.00-0.1) % Eos # (Auto) 0.06 (0-0.5) x10^3/uL Immature Gran # (Auto) 0.02 (0.00-0.03) x10^3u/L Absolute Lymphs (auto) 1.07 (1.0-4.6) x10^3/uL Absolute Monos (auto) 0.27 (0.0-1.3) x10^3/uL Absolute Nucleated RBC 0.00 (0.00-0.01) x10^3u/L Lymphocytes % 12.3 L (24.0-44.0) % Monocytes % 3.1 (0.0-12.0) % Eosinophils % 0.7 (0.00-5.0) % Basophils % 0.2 (0.0-0.4) % Absolute Granulocytes 7.29 H (1.4-6.9) x10^3/uL Basophils # 0.02 (0-0.4) x10^3/uL Sodium (137-145) mmol/L Potassium (3.5-5.1) mmol/L Chloride (98-107) mmol/L Carbon Dioxide (22-30) mmol/L Anion Gap (5-15) MEQ/L BUN (7-17) mg/dL Creatinine (0.52-1.04) mg/dL Estimated GFR ML/MIN Glucose (74-106) mg/dL Lactic Acid (0.4-2.0) Calcium (8.4-10.2) mg/dL Total Bilirubin (0.2-1.3) mg/dL AST (14-36) U/L ALT (0-35) U/L Alkaline Phosphatase (38-126) U/L Serum Total Protein (6.3-8.2) g/dL Albumin (3.5-5.0) g/dL Urinalys Dipstick Clnc Urine Color (YELLOW) Urine Appearance (CLEAR) Urine pH (5-6) Ur Specific [place] (1.005-1.025) POC Urine Protein Conf (Negative) Urine Ketones (NEGATIVE) Urine Nitrite (NEGATIVE) Urine Bilirubin (NEGATIVE) Urine Urobilinogen (0-1) mg/dL Urine Leukocytes (NEGATIVE) Urine WBC (Auto) (0-5) /HPF Urine RBC (Auto) (0-2) /HPF U Epithel Cells (Auto) (FEW) /HPF Urine Bacteria (Auto) (NEGATIVE) /HPF Urine RBC (0-5) Cory/ul Urine Mucus (Auto) (NEGATIVE) /HPF Ur Culture Indicated? Urine Glucose (NEGATIVE) mg/dL Monoscreen (Negative) Influenza Type A Ag (NEGATIVE) Influenza Type B Ag (NEGATIVE) RSV (PCR) (Negative) SARS-CoV-2 (PCR) (NEGATIVE) Group A Strep Antibody (NEGATIVE) - Progress Progress: re-examined Air Movement: good Progress Note: 05/12/22 13:23 Chest x-ray shows no acute cardiopulmonary process. There appears to be right lower lobe atelectasis/scarring 05/12/22 14:16 Medical decision making: I spoke with Dr. Tai Penny, the patient's primary care physician. We are going to place this patient in observation and provide her with IV hydration. She is definitely dehydrated and anxious. She has been off of her medications for over 24 hours. This may contribute to her symptoms. We will repeat labs in the morning as well as provide her with as needed Ativan intravenously. Blood Culture(s) Obtained: Yes Antibiotics given: No Discussed with : [place] Counseled pt/family regarding: lab results, diagnosis, rad results - Departure Departure Disposition: Observation Clinical Impression: Lactic acidemia, Dehydration, Anxiety Condition: Stable Critical Care Time: No Referrals: CELESTINE STALLWORTH [Primary Care Provider] - Follow up/PCP as directed
[2022-05-12 12:38] LABS: Absolute Neutrophil Ct (ANC) 7.29 x10^3/uL (1.4-6.9); Basophil (Absolute #) 0.02 x10^3/uL (0-0.4); Eosinophil % 0.7 % (0.00-5.0); Eosinophil (Absolute #) 0.06 x10^3/uL (0-0.5); Hematocrit 42.6 % (35-47); Hemoglobin 14.3 g/dL (12.0-16.0); Lymphocyte (Absolute #) 1.07 x10^3/uL (1.0-4.6); Lymphocytes % 12.3 % (24.0-44.0); Mean Cell Volume 96.6 fL (78-100); Mean Corpuscular Hemoglobin 32.4 pg (26-32); Mean Corpuscular Hgb Concent. 33.6 g/dL (32-36); Mean Platelet Volume 11.5 fL (7.5-11.0); Monocyte (Absolute #) 0.27 x10^3/uL (0.0-1.3); Monocytes % 3.1 % (0.0-12.0); Neutrophil % 83.5 % (36.0-66.0); Platelet Count 188 x10^3/uL (150-450); Red Blood Count 4.41 x10^6/uL (4.1-5.4); Red Cell Distribution Width 12.4 % (11.5-14.0); White Blood Count 8.7 x10^3/uL (4.0-10.5)
[2022-05-12] MEDS ORDERED: Sodium Chloride 0.9% 1000 ML 1,000 ML ONE ×2 (12:40→13:54)
--- NOTE | 2022-05-12 12:41 | XRAY ---
Indication: Bodyaches, chills, and weakness 2 days. Comparison: September 02, 2018. Portable chest demonstrates new left base curvilinear subsegmental atelectasis/scarring. Remaining heart and lungs normal. Bony thorax intact with partially visualized lumbar fusion hardware.
[2022-05-12 12:56] LABS: ALBUMIN 4.5 g/dL (3.5-5.0); ALKALINE PHOSPHATASE 137 U/L (38-126); ANION GAP 15.5 MEQ/L (5-15); BLOOD UREA NITROGEN 12 mg/dL (7-17); CHLORIDE 102 mmol/L (98-107); Calcium 10.1 mg/dL (8.4-10.2); Carbon Dioxide 26 mmol/L (22-30); Creatinine 1 0.59 mg/dL (0.52-1.04); EST GLOMERULAR FILTRATION RATE > 60.0 ML/MIN; Glucose 152 mg/dL (74-106); Potassium 3.3 mmol/L (3.5-5.1); SGOT/AST 28 U/L (14-36); SGPT/ALT 23 U/L (0-35); SODIUM 140 mmol/L (137-145); Total Protein 7.4 g/dL (6.3-8.2)
[2022-05-12 13:16] LABS: INFLUENZA A NEGATIVE (NEGATIVE); INFLUENZA B NEGATIVE (NEGATIVE); RESPIRATORY SYNCTIAL VIRUS NEGATIVE (Negative); SARS-CoV-2 Xpert Express NEGATIVE (NEGATIVE)
[2022-05-12 13:32] LABS: Bacteria RARE /HPF (NEGATIVE); Epithelial Cells FEW /HPF (FEW); Mucus SLIGHT /HPF (NEGATIVE); RBC 0-2 /HPF (0-2)
[2022-05-12 13:38] LABS: Appearance CLEAR (CLEAR); Bilirubin NEGATIVE (NEGATIVE); Dipstick done @ ? MAIN LAB; Glucose 100 mg/dL (NEGATIVE); Ketones MODERATE-40 (NEGATIVE); Nitrite NEGATIVE (NEGATIVE); Protein,Urine Dip NEGATIVE (Negative); RBC NEGATIVE Ery/ul (0-5); Specific Gravity 1.015 (1.005-1.025); Urobilinogen 1 mg/dL (0-1)
[2022-05-12 13:40] LABS: Urine Cultured Indicated? NO
[2022-05-12] MEDS ORDERED: Klor Con PO ONE ×2 (13:51→13:54)
[2022-05-12] MEDS ORDERED: Ativan 2 MG/1 ML VIAL IV ONE (14:00)
[2022-05-12] MEDS ORDERED: Ativan 2 MG/1 ML VIAL ONE (14:03)
[2022-05-12 14:34] LABS: Amphetamine,Urine NEGATIVE (NEGATIVE); Barbiturate,Urine NEGATIVE (NEGATIVE); Benzodiazepine,Urine NEGATIVE (NEGATIVE); Cocaine,Urine NEGATIVE (NEGATIVE); Methadone,Urine NEGATIVE (NEGATIVE); Opiate,Urine NEGATIVE (NEGATIVE); PCP,Urine NEGATIVE (NEGATIVE); THC,Urine NEGATIVE (NEGATIVE)
--- NOTE | 2022-05-12 14:55 | XRAY ---
Indication: Headache, confusion, and chills. Multiple contiguous axial images obtained through the head without contrast. Comparison: February 08, 2019. Normal appearing brain parenchyma, ventricles, and bony calvarium. Visualized paranasal sinuses and mastoid air cells are clear. Impression: Continued normal CT head without contrast exam.
[2022-05-12] MEDS ORDERED: TYLENOL 325 MG PO PRN (15:09)
[2022-05-12] MEDS ORDERED: Ativan 2 MG/1 ML VIAL IV PRN (15:09)
[2022-05-12] MEDS ORDERED: Zofran 4 MG/2 ML VIAL IV PRN (15:09)
[2022-05-12] MEDS: Sodium Chloride 0.9% 1000 ML 1,000 ML IV SCH (16:09)
[2022-05-12] MEDS ORDERED: NON-FORMULARY ITEM (Linaclotide [Linzess] 290 MCG Capsule) PO SCH (16:45)
[2022-05-12] MEDS ORDERED: BUPRENORPHINE TD SCH (16:45)
[2022-05-12] MEDS ORDERED: MEDICATION INTERVENTION MC SCH (17:30)
[2022-05-12] MEDS: Protonix 40MG Tablet PO SCH (17:42)
[2022-05-12] MEDS: zyPREXA 5MG TABLET PO SCH (17:42)
[2022-05-12] MEDS: Cymbalta 30 MG Capsule PO SCH (17:42)
[2022-05-12] MEDS: Zestril 20 MG*** 20 MG, hydroDIURIL 25 MG*** 12.5 MG PO SCH ×2 (17:42)
[2022-05-12] MEDS: celeBREX 100 MG PO SCH (17:42)
[2022-05-12] MEDS: LYRICA 150MG PO SCH ×2 (17:42→21:52)
[2022-05-12] MEDS: Vitamin B-6 (Pyridoxine) 100 MG PO SCH (21:51)
[2022-05-12] MEDS: PATIENT OWN MEDICATION PO SCH ×2 (21:52→21:58)
[2022-05-12] MEDS: Ditropan 5 MG PO SCH (21:52)
[2022-05-12] MEDS ORDERED: DESYREL 50 MG PO SCH (22:00)
[2022-05-12] MEDS ORDERED: Desyrel 150 MG PO SCH (22:00)
[2022-05-12] MEDS ORDERED: NON-FORMULARY ITEM (Buprenorphine Hcl/Naloxone Hcl [Buprenorphine-Nalox 8-2 Mg Tab] 1 EACH SL SCH (22:00)
[2022-05-13] MEDS: Sodium Chloride 0.9% 1000 ML 1,000 ML IV SCH (02:21)
[2022-05-13 04:45] LABS: Absolute Neutrophil Ct (ANC) 3.25 x10^3/uL (1.4-6.9); Basophil (Absolute #) 0.02 x10^3/uL (0-0.4); Eosinophil % 1.8 % (0.00-5.0); Eosinophil (Absolute #) 0.12 x10^3/uL (0-0.5); Hematocrit 34.2 % (35-47); Hemoglobin 11.6 g/dL (12.0-16.0); Lymphocyte (Absolute #) 2.86 x10^3/uL (1.0-4.6); Lymphocytes % 41.9 % (24.0-44.0); Mean Cell Volume 96.3 fL (78-100); Mean Corpuscular Hemoglobin 32.7 pg (26-32); Mean Corpuscular Hgb Concent. 33.9 g/dL (32-36); Monocyte (Absolute #) 0.56 x10^3/uL (0.0-1.3); Monocytes % 8.2 % (0.0-12.0); Neutrophil % 47.7 % (36.0-66.0); Platelet Count 160 x10^3/uL (150-450); Red Blood Count 3.55 x10^6/uL (4.1-5.4); Red Cell Distribution Width 12.9 % (11.5-14.0); White Blood Count 6.8 x10^3/uL (4.0-10.5)
[2022-05-13 05:05] LABS: ALKALINE PHOSPHATASE 82 U/L (38-126); ANION GAP 7.6 MEQ/L (5-15); BLOOD UREA NITROGEN 8 mg/dL (7-17); CHLORIDE 109 mmol/L (98-107); Calcium 8.7 mg/dL (8.4-10.2); Carbon Dioxide 26 mmol/L (22-30); Creatinine 1 0.55 mg/dL (0.52-1.04); EST GLOMERULAR FILTRATION RATE > 60.0 ML/MIN; Glucose 94 mg/dL (74-106); SGOT/AST 20 U/L (14-36); SGPT/ALT 16 U/L (0-35); SODIUM 140 mmol/L (137-145); Total Protein 5.7 g/dL (6.3-8.2)
[2022-05-13 05:07] LABS: Potassium 3.1 mmol/L (3.5-5.1)
--- NOTE | 2022-05-13 08:54 | PCM.SSS ---
History of Present Illness - Chief Complaint Chief Complaint: Lactic acidemia History of Present Illness: is a 51 year old female pt of mine from [facility] with PMHx chronic back pain, chronic opioid use, fibromyalgia, PTSD, prediabetes, and HTN who was admitted through ER with dehydration and lactic acidemia. She had been feeling poorly for 1 day, with increased somnolence. Slept all day Thursday, then when she woke up Thursday felt shaky, dizzy, pre-syncopal and went to ER. Her lactate was 3.7 and potassium was mildly decreased. CT head was wnl. Labs nonacute otherwise. UA and Utox neg (had skipped her medicines 2d ago and didn't have any yesterday morning). She is feeling much better this morning, just fatigued. Medications & Allergies Home Medications: Home Medication List Pregabalin [Lyrica 150Mg] 1 tab PO TID 10/15/16 [History Confirmed 05/12/22] Duloxetine HCl 30 mg [Cymbalta 30 MG Capsule] 90 mg PO DAILY 12/31/16 [History Confirmed 05/12/22] Solifenacin Succinate [Vesicare] 10 mg PO DAILY 08/13/17 [History Confirmed 05/12/22] Trazodone HCl 50 mg [Desyrel 50 mg] 150 mg PO QHS 12/27/17 [History Confir med 05/12/22] Celecoxib [Celebrex] 200 mg PO DAILY 09/18/20 [History Confirmed 05/12/22] Buprenorphine HCl/Naloxone HCl [Buprenorphine-Nalox 8-2 mg Tab] 1 each SL TID 05/12/22 [History Confirmed 05/12/22] Buprenorphine [Butrans] 1 each TD WEEKLY 05/12/22 [History Confirmed 05/12/22] Linaclotide [Linzess] 145 mcg PO UD 05/12/22 [History Confirmed 05/12/22] Lisdexamfetamine Dimesylate [Vyvanse] 60 mg PO DAILY 05/12/22 [History Confirmed 05/12/22] Lisinopril/Hydrochlorothiazide [Zestoretic 20-12.5 mg Tablet] 1 each PO DAILY 05/12/22 [History Confirmed 05/12/22] Olanzapine 5 mg [zyPREXA 5MG TABLET] 5 mg PO DAILY 05/12/22 [History Confirmed 05/12/22] Omeprazole 20 mg PO DAILY 05/12/22 [History Confirmed 05/12/22] Pyridoxine HCl 100 mg [Vitamin B-6 (Pyridoxine) 100 MG] 100 mg PO BID [History Confirmed 05/12/22] Allergies/Adverse Reactions: Allergies Allergy/AdvReac Type Severity Reaction Status Date / Time No Known Drug Allergies Allergy Verified 05/12/22 12:18 - Past Medical History Past Medical History: Yes Neurological History: Migraines ENT History: No Pertinent History Cardiac History: Hypertension Respiratory History: No Pertinent History Endocrine Medical History: No Pertinent History Musculoskelatal History: Degenerative Disk Disease, Osteoarthritis GI Medical History: GERD History: No Pertinent History Pyscho-Social History: Anxiety, Attention Deficit Disorder, Depression Reproductive Disorders: No Pertinent History Comment: SX HX: HAS HAD TOTAL OF 4 BACK SURGERIES - FIRST APPROXIMATELY 2016 AND MOST RECENT 02/21/2021. hx of opioid abuse severe upper abd pain and rt side off on and getting worse over last 2.5 years. with vomiting,stenosis - Female History Are you now?: No - Past Surgical History Past Surgical History: Yes Neuro Surgical History: No Pertinent History Cardiac History: No Pertinent History Respiratory Surgery: No Pertinent History GI Surgical History: No Pertinent History Genitourinary Surgical Hx: No Pertinent History Musculskeletal Surgical Hx: Orthopedic Surgery Female Surgical History: Dilation & Curettage Other Surgical History: lumbar spinal fusion, synovial cyst removed. spinal repair of screws along with cement. states "have had about 6 colonoscopy with polyps", HX OF PEA during anesthesia. - Social History Smoking Status: Current every day smoker How long have you smoked: age 23 Exposure to second hand smoke: No Alcohol: None Drug Use: none - Physical Exam Vital Signs: Vital Signs - 24 hr Temp Pulse Resp BP Pulse Ox 05/13/22 07:52 97.5 F 75 20 102/56 93 L 05/13/22 04:00 98.7 F 74 16 110/54 95 05/12/22 23:23 97.5 F 95 H 16 102/51 95 05/12/22 19:30 99.1 F 91 H 16 136/64 95 05/12/22 15:20 97.7 F 104 H 20 133/71 90 L 05/12/22 14:04 111 H 16 135/83 99 05/12/22 12:36 98 05/12/22 12:09 97.5 F 91 H 145/86 98 General Appearance: no apparent distress, alert Neurologic Exam: oriented x 3, cooperative Eye Exam: eyes nml inspection Ears, Nose, Throat Exam: moist mucous membranes Neck Exam: normal inspection, non-tender, No lymphadenopathy, No thyromegaly Respiratory Exam: normal breath sounds, lungs clear, No crackles/rales, No rhonchi, No wheezing Cardiovascular Exam: regular rate/rhythm, normal heart sounds, No murmur Gastrointestinal/Abdomen Exam: soft, normal bowel sounds, No tenderness, No distention, No mass, No guarding, No rebound Back Exam: normal inspection, No rash Extremity Exam: normal inspection, No pedal edema, No swelling Skin Exam: normal color, warm, dry, No rash Results - Labs Lab/Micro Results: Lab Results-Last 24 Hours 05/12/22 05/12/22 05/12/22 Range/Units 12:30 12:30 12:30 WBC 8.7 (4.0-10.5) x10^3/uL RBC 4.41 (4.1-5.4) x10^6/uL Hgb 14.3 (12.0-16.0) g/dL Hct 42.6 (35-47) % MCV 96.6 (78-100) fL MCH 32.4 H (26-32) pg MCHC 33.6 (32-36) g/dL RDW 12.4 (11.5-14.0) % Plt Count 188 (150-450) x10^3/uL MPV 11.5 H (7.5-11.0) fL Gran % 83.5 H (36.0-66.0) % Immature Gran % (Auto) 0.2 (0.00-0.4) % Nucleat RBC Rel Count 0.0 (0.00-0.1) % Eos # (Auto) 0.06 (0-0.5) x10^3/uL Immature Gran # (Auto) 0.02 (0.00-0.03) x10^3u/L Absolute Lymphs (auto) 1.07 (1.0-4.6) x10^3/uL Absolute Monos (auto) 0.27 (0.0-1.3) x10^3/uL Absolute Nucleated RBC 0.00 (0.00-0.01) x10^3u/L Lymphocytes % 12.3 L (24.0-44.0) % Monocytes % 3.1 (0.0-12.0) % Eosinophils % 0.7 (0.00-5.0) % Basophils % 0.2 (0.0-0.4) % Absolute Granulocytes 7.29 H (1.4-6.9) x10^3/uL Basophils # 0.02 (0-0.4) x10^3/uL Sodium 140 (137-145) mmol/L Potassium 3.3 L (3.5-5.1) mmol/L Chloride 102 (98-107) mmol/L Carbon Dioxide 26 (22-30) mmol/L Anion Gap 15.5 H (5-15) MEQ/L BUN 12 (7-17) mg/dL Creatinine 0.59 (0.52-1.04) mg/dL Estimated GFR > 60.0 ML/MIN Glucose 152 H (74-106) mg/dL Lactic Acid (0.4-2.0) Calcium 10.1 (8.4-10.2) mg/dL Total Bilirubin 0.60 (0.2-1.3) mg/dL AST 28 (14-36) U/L ALT 23 (0-35) U/L Alkaline Phosphatase 137 H (38-126) U/L Serum Total Protein 7.4 (6.3-8.2) g/dL Albumin 4.5 (3.5-5.0) g/dL Urinalys Dipstick Clnc Urine Color (YELLOW) Urine Appearance (CLEAR) Urine pH (5-6) Ur Specific [place] (1.005-1.025) POC Urine Protein Conf (Negative) Urine Ketones (NEGATIVE) Urine Nitrite (NEGATIVE) Urine Bilirubin (NEGATIVE) Urine Urobilinogen (0-1) mg/dL Urine Leukocytes (NEGATIVE) Urine WBC (Auto) (0-5) /HPF Urine RBC (Auto) (0-2) /HPF U Epithel Cells (Auto) (FEW) /HPF Urine Bacteria (Auto) (NEGATIVE) /HPF Urine RBC (0-5) Cory/ul Urine Mucus (Auto) (NEGATIVE) /HPF Ur Culture Indicated? Urine Glucose (NEGATIVE) mg/dL Urine Opiates Level (NEGATIVE) Ur Methadone (NEGATIVE) Urine Barbiturates (NEGATIVE) Ur Phencyclidine (PCP) (NEGATIVE) Urine Amphetamine (NEGATIVE) U Benzodiazepine Level (NEGATIVE) Urine Cocaine (NEGATIVE) Urine Marijuana (THC) (NEGATIVE) Monoscreen (Negative) Influenza Type A Ag (NEGATIVE) Influenza Type B Ag (NEGATIVE) RSV (PCR) (Negative) SARS-CoV-2 (PCR) (NEGATIVE) Group A Strep Antibody NOT DETECTED (NEGATIVE) 05/12/22 05/12/22 05/12/22 Range/Units 12:30 12:30 12:36 WBC (4.0-10.5) x10^3/uL RBC (4.1-5.4) x10^6/uL Hgb (12.0-16.0) g/dL Hct (35-47) % MCV (78-100) fL MCH (26-32) pg MCHC (32-36) g/dL RDW (11.5-14.0) % Plt Count (150-450) x10^3/uL MPV (7.5-11.0) fL Gran % (36.0-66.0) % Immature Gran % (Auto) (0.00-0.4) % Nucleat RBC Rel Count (0.00-0.1) % Eos # (Auto) (0-0.5) x10^3/uL Immature Gran # (Auto) (0.00-0.03) x10^3u/L Absolute Lymphs (auto) (1.0-4.6) x10^3/uL Absolute Monos (auto) (0.0-1.3) x10^3/uL Absolute Nucleated RBC (0.00-0.01) x10^3u/L Lymphocytes % (24.0-44.0) % Monocytes % (0.0-12.0) % Eosinophils % (0.00-5.0) % Basophils % (0.0-0.4) % Absolute Granulocytes (1.4-6.9) x10^3/uL Basophils # (0-0.4) x10^3/uL Sodium (137-145) mmol/L Potassium (3.5-5.1) mmol/L Chloride (98-107) mmol/L Carbon Dioxide (22-30) mmol/L Anion Gap (5-15) MEQ/L BUN (7-17) mg/dL Creatinine (0.52-1.04) mg/dL Estimated GFR ML/MIN Glucose (74-106) mg/dL Lactic Acid 3.7 H (0.4-2.0) Calcium (8.4-10.2) mg/dL Total Bilirubin (0.2-1.3) mg/dL AST (14-36) U/L ALT (0-35) U/L Alkaline Phosphatase (38-126) U/L Serum Total Protein (6.3-8.2) g/dL Albumin (3.5-5.0) g/dL Urinalys Dipstick Clnc Urine Color (YELLOW) Urine Appearance (CLEAR) Urine pH (5-6) Ur Specific [place] (1.005-1.025) POC Urine Protein Conf (Negative) Urine Ketones (NEGATIVE) Urine Nitrite (NEGATIVE) Urine Bilirubin (NEGATIVE) Urine Urobilinogen (0-1) mg/dL Urine Leukocytes (NEGATIVE) Urine WBC (Auto) (0-5) /HPF Urine RBC (Auto) (0-2) /HPF U Epithel Cells (Auto) (FEW) /HPF Urine Bacteria (Auto) (NEGATIVE) /HPF Urine RBC (0-5) Cory/ul Urine Mucus (Auto) (NEGATIVE) /HPF Ur Culture Indicated? Urine Glucose (NEGATIVE) mg/dL Urine Opiates Level (NEGATIVE) Ur Methadone (NEGATIVE) Urine Barbiturates (NEGATIVE) Ur Phencyclidine (PCP) (NEGATIVE) Urine Amphetamine (NEGATIVE) U Benzodiazepine Level (NEGATIVE) Urine Cocaine (NEGATIVE) Urine Marijuana (THC) (NEGATIVE) Monoscreen NEGATIVE (Negative) Influenza Type A Ag NEGATIVE (NEGATIVE) Influenza Type B Ag NEGATIVE (NEGATIVE) RSV (PCR) NEGATIVE (Negative) SARS-CoV-2 (PCR) NEGATIVE (NEGATIVE) Group A Strep Antibody (NEGATIVE) 05/12/22 05/12/22 05/12/22 Range/Units 12:54 14:23 14:39 WBC (4.0-10.5) x10^3/uL RBC (4.1-5.4) x10^6/uL Hgb (12.0-16.0) g/dL Hct (35-47) % MCV (78-100) fL MCH (26-32) pg MCHC (32-36) g/dL RDW (11.5-14.0) % Plt Count (150-450) x10^3/uL MPV (7.5-11.0) fL Gran % (36.0-66.0) % Immature Gran % (Auto) (0.00-0.4) % Nucleat RBC Rel Count (0.00-0.1) % Eos # (Auto) (0-0.5) x10^3/uL Immature Gran # (Auto) (0.00-0.03) x10^3u/L Absolute Lymphs (auto) (1.0-4.6) x10^3/uL Absolute Monos (auto) (0.0-1.3) x10^3/uL Absolute Nucleated RBC (0.00-0.01) x10^3u/L Lymphocytes % (24.0-44.0) % Monocytes % (0.0-12.0) % Eosinophils % (0.00-5.0) % Basophils % (0.0-0.4) % Absolute Granulocytes (1.4-6.9) x10^3/uL Basophils # (0-0.4) x10^3/uL Sodium (137-145) mmol/L Potassium (3.5-5.1) mmol/L Chloride (98-107) mmol/L Carbon Dioxide (22-30) mmol/L Anion Gap (5-15) MEQ/L BUN (7-17) mg/dL Creatinine (0.52-1.04) mg/dL Estimated GFR ML/MIN Glucose (74-106) mg/dL Lactic Acid 1.0 (0.4-2.0) Calcium (8.4-10.2) mg/dL Total Bilirubin (0.2-1.3) mg/dL AST (14-36) U/L ALT (0-35) U/L Alkaline Phosphatase (38-126) U/L Serum Total Protein (6.3-8.2) g/dL Albumin (3.5-5.0) g/dL Urinalys Dipstick Clnc MAIN LAB Urine Color YELLOW (YELLOW) Urine Appearance CLEAR (CLEAR) Urine pH 7.0 (5-6) Ur Specific [place] 1.015 (1.005-1.025) POC Urine Protein Conf NEGATIVE (Negative) Urine Ketones MODERATE-40 (NEGATIVE) Urine Nitrite NEGATIVE (NEGATIVE) Urine Bilirubin NEGATIVE (NEGATIVE) Urine Urobilinogen 1 (0-1) mg/dL Urine Leukocytes NEGATIVE (NEGATIVE) Urine WBC (Auto) 3-5 (0-5) /HPF Urine RBC (Auto) 0-2 (0-2) /HPF U Epithel Cells (Auto) FEW (FEW) /HPF Urine Bacteria (Auto) RARE (NEGATIVE) /HPF Urine RBC NEGATIVE (0-5) Cory/ul Urine Mucus (Auto) SLIGHT (NEGATIVE) /HPF Ur Culture Indicated? NO Urine Glucose 100 (NEGATIVE) mg/dL Urine Opiates Level NEGATIVE (NEGATIVE) Ur Methadone NEGATIVE (NEGATIVE) Urine Barbiturates NEGATIVE (NEGATIVE) Ur Phencyclidine (PCP) NEGATIVE (NEGATIVE) Urine Amphetamine NEGATIVE (NEGATIVE) U Benzodiazepine Level NEGATIVE (NEGATIVE) Urine Cocaine NEGATIVE (NEGATIVE) Urine Marijuana (THC) NEGATIVE (NEGATIVE) Monoscreen (Negative) Influenza Type A Ag (NEGATIVE) Influenza Type B Ag (NEGATIVE) RSV (PCR) (Negative) SARS-CoV-2 (PCR) (NEGATIVE) Group A Strep Antibody (NEGATIVE) 05/13/22 05/13/22 05/13/22 Range/Units 04:44 04:44 04:44 WBC 6.8 (4.0-10.5) x10^3/uL RBC 3.55 L (4.1-5.4) x10^6/uL Hgb 11.6 L (12.0-16.0) g/dL Hct 34.2 L (35-47) % MCV 96.3 (78-100) fL MCH 32.7 H (26-32) pg MCHC 33.9 (32-36) g/dL RDW 12.9 (11.5-14.0) % Plt Count 160 (150-450) x10^3/uL MPV 12.0 H (7.5-11.0) fL Gran % 47.7 (36.0-66.0) % Immature Gran % (Auto) 0.1 (0.00-0.4) % Nucleat RBC Rel Count 0.0 (0.00-0.1) % Eos # (Auto) 0.12 (0-0.5) x10^3/uL Immature Gran # (Auto) 0.01 (0.00-0.03) x10^3u/L Absolute Lymphs (auto) 2.86 (1.0-4.6) x10^3/uL Absolute Monos (auto) 0.56 (0.0-1.3) x10^3/uL Absolute Nucleated RBC 0.00 (0.00-0.01) x10^3u/L Lymphocytes % 41.9 (24.0-44.0) % Monocytes % 8.2 (0.0-12.0) % Eosinophils % 1.8 (0.00-5.0) % Basophils % 0.3 (0.0-0.4) % Absolute Granulocytes 3.25 (1.4-6.9) x10^3/uL Basophils # 0.02 (0-0.4) x10^3/uL Sodium 140 (137-145) mmol/L Potassium 3.1 L (3.5-5.1) mmol/L Chloride 109 H (98-107) mmol/L Carbon Dioxide 26 (22-30) mmol/L Anion Gap 7.6 (5-15) MEQ/L BUN 8 (7-17) mg/dL Creatinine 0.55 (0.52-1.04) mg/dL Estimated GFR > 60.0 ML/MIN Glucose 94 (74-106) mg/dL Lactic Acid 1.2 (0.4-2.0) Calcium 8.7 (8.4-10.2) mg/dL Total Bilirubin 0.40 (0.2-1.3) mg/dL AST 20 (14-36) U/L ALT 16 (0-35) U/L Alkaline Phosphatase 82 (38-126) U/L Serum Total Protein 5.7 L (6.3-8.2) g/dL Albumin 3.0 L (3.5-5.0) g/dL Urinalys Dipstick Clnc Urine Color (YELLOW) Urine Appearance (CLEAR) Urine pH (5-6) Ur Specific [place] (1.005-1.025) POC Urine Protein Conf (Negative) Urine Ketones (NEGATIVE) Urine Nitrite (NEGATIVE) Urine Bilirubin (NEGATIVE) Urine Urobilinogen (0-1) mg/dL Urine Leukocytes (NEGATIVE) Urine WBC (Auto) (0-5) /HPF Urine RBC (Auto) (0-2) /HPF U Epithel Cells (Auto) (FEW) /HPF Urine Bacteria (Auto) (NEGATIVE) /HPF Urine RBC (0-5) Cory/ul Urine Mucus (Auto) (NEGATIVE) /HPF Ur Culture Indicated? Urine Glucose (NEGATIVE) mg/dL Urine Opiates Level (NEGATIVE) Ur Methadone (NEGATIVE) Urine Barbiturates (NEGATIVE) Ur Phencyclidine (PCP) (NEGATIVE) Urine Amphetamine (NEGATIVE) U Benzodiazepine Level (NEGATIVE) Urine Cocaine (NEGATIVE) Urine Marijuana (THC) (NEGATIVE) Monoscreen (Negative) Influenza Type A Ag (NEGATIVE) Influenza Type B Ag (NEGATIVE) RSV (PCR) (Negative) SARS-CoV-2 (PCR) (NEGATIVE) Group A Strep Antibody (NEGATIVE) Accuchecks Date 05/12/22 Time 14:05 - Radiology Impressions Radiology Exams & Impressions: Radiology Procedures Category Date Time Status CHEST 1 VIEW (PORTABLE) Stat Exams 05/12/22 12:13 Completed HEAD WITHOUT CONTRAST [CT] Stat Exams 05/12/22 14:05 Completed Assessment/Plan (1) Dehydration Current Visit: Yes Status: Resolved Code(s): E86.0 - DEHYDRATION (2) Hypokalemia Current Visit: Yes Status: Acute Assessment & Plan: Will replete and recheck Code(s): E87.6 - HYPOKALEMIA (3) Lactic acidemia Current Visit: Yes Status: Resolved Code(s): E87.2 - ACIDOSIS Hospital Summary - Hospital Course Hospital Course: Pt is 51 yo female admitted with dehydration and lactic acidosis, was somnolent at home but feeling better here. Initial lactate 3.7 but resolved with IV fluids. She is feeling much better today, was dizzy, shaky, with hot and cold spells yesterday. Potassium a bit low, will give po potassium this morning and recheck at 11am. Will check monospot as well. Restart her home meds including vyvanse. Will d/c pt to home if labs ok at 11 and have her f/u with me in office in 1 week. - Vitals & Intake/Output Vital Signs: Vital Signs Temperature 97.5 F 05/13/22 07:52 Pulse Rate 75 05/13/22 07:52 Respiratory Rate 20 05/13/22 07:52 Blood Pressure 102/56 05/13/22 07:52 O2 Sat by Pulse Oximetry 93 L 05/13/22 07:52 Intake & Output: Intake & Output 05/10/22 05/11/22 05/12/22 05/13/22 11:59 11:59 11:59 11:59 Intake Total 1385 Balance 1385 Weight 67.4 kg - Lab Result Diagrams: 05/13/22 04:44 05/13/22 04:44 Lab Results-Last 24 Hrs: Lab Results-Last 24 Hours 05/12/22 05/12/22 05/12/22 Range/Units 12:30 12:30 12:30 WBC 8.7 (4.0-10.5) x10^3/uL RBC 4.41 (4.1-5.4) x10^6/uL Hgb 14.3 (12.0-16.0) g/dL Hct 42.6 (35-47) % MCV 96.6 (78-100) fL MCH 32.4 H (26-32) pg MCHC 33.6 (32-36) g/dL RDW 12.4 (11.5-14.0) % Plt Count 188 (150-450) x10^3/uL MPV 11.5 H (7.5-11.0) fL Gran % 83.5 H (36.0-66.0) % Immature Gran % (Auto) 0.2 (0.00-0.4) % Nucleat RBC Rel Count 0.0 (0.00-0.1) % Eos # (Auto) 0.06 (0-0.5) x10^3/uL Immature Gran # (Auto) 0.02 (0.00-0.03) x10^3u/L Absolute Lymphs (auto) 1.07 (1.0-4.6) x10^3/uL Absolute Monos (auto) 0.27 (0.0-1.3) x10^3/uL Absolute Nucleated RBC 0.00 (0.00-0.01) x10^3u/L Lymphocytes % 12.3 L (24.0-44.0) % Monocytes % 3.1 (0.0-12.0) % Eosinophils % 0.7 (0.00-5.0) % Basophils % 0.2 (0.0-0.4) % Absolute Granulocytes 7.29 H (1.4-6.9) x10^3/uL Basophils # 0.02 (0-0.4) x10^3/uL Sodium 140 (137-145) mmol/L Potassium 3.3 L (3.5-5.1) mmol/L Chloride 102 (98-107) mmol/L Carbon Dioxide 26 (22-30) mmol/L Anion Gap 15.5 H (5-15) MEQ/L BUN 12 (7-17) mg/dL Creatinine 0.59 (0.52-1.04) mg/dL Estimated GFR > 60.0 ML/MIN Glucose 152 H (74-106) mg/dL Lactic Acid (0.4-2.0) Calcium 10.1 (8.4-10.2) mg/dL Total Bilirubin 0.60 (0.2-1.3) mg/dL AST 28 (14-36) U/L ALT 23 (0-35) U/L Alkaline Phosphatase 137 H (38-126) U/L Serum Total Protein 7.4 (6.3-8.2) g/dL Albumin 4.5 (3.5-5.0) g/dL Urinalys Dipstick Clnc Urine Color (YELLOW) Urine Appearance (CLEAR) Urine pH (5-6) Ur Specific [place] (1.005-1.025) POC Urine Protein Conf (Negative) Urine Ketones (NEGATIVE) Urine Nitrite (NEGATIVE) Urine Bilirubin (NEGATIVE) Urine Urobilinogen (0-1) mg/dL Urine Leukocytes (NEGATIVE) Urine WBC (Auto) (0-5) /HPF Urine RBC (Auto) (0-2) /HPF U Epithel Cells (Auto) (FEW) /HPF Urine Bacteria (Auto) (NEGATIVE) /HPF Urine RBC (0-5) Cory/ul Urine Mucus (Auto) (NEGATIVE) /HPF Ur Culture Indicated? Urine Glucose (NEGATIVE) mg/dL Urine Opiates Level (NEGATIVE) Ur Methadone (NEGATIVE) Urine Barbiturates (NEGATIVE) Ur Phencyclidine (PCP) (NEGATIVE) Urine Amphetamine (NEGATIVE) U Benzodiazepine Level (NEGATIVE) Urine Cocaine (NEGATIVE) Urine Marijuana (THC) (NEGATIVE) Monoscreen (Negative) Influenza Type A Ag (NEGATIVE) Influenza Type B Ag (NEGATIVE) RSV (PCR) (Negative) SARS-CoV-2 (PCR) (NEGATIVE) Group A Strep Antibody NOT DETECTED (NEGATIVE) 05/12/22 05/12/22 05/12/22 Range/Units 12:30 12:30 12:36 WBC (4.0-10.5) x10^3/uL RBC (4.1-5.4) x10^6/uL Hgb (12.0-16.0) g/dL Hct (35-47) % MCV (78-100) fL MCH (26-32) pg MCHC (32-36) g/dL RDW (11.5-14.0) % Plt Count (150-450) x10^3/uL MPV (7.5-11.0) fL Gran % (36.0-66.0) % Immature Gran % (Auto) (0.00-0.4) % Nucleat RBC Rel Count (0.00-0.1) % Eos # (Auto) (0-0.5) x10^3/uL Immature Gran # (Auto) (0.00-0.03) x10^3u/L Absolute Lymphs (auto) (1.0-4.6) x10^3/uL Absolute Monos (auto) (0.0-1.3) x10^3/uL Absolute Nucleated RBC (0.00-0.01) x10^3u/L Lymphocytes % (24.0-44.0) % Monocytes % (0.0-12.0) % Eosinophils % (0.00-5.0) % Basophils % (0.0-0.4) % Absolute Granulocytes (1.4-6.9) x10^3/uL Basophils # (0-0.4) x10^3/uL Sodium (137-145) mmol/L Potassium (3.5-5.1) mmol/L Chloride (98-107) mmol/L Carbon Dioxide (22-30) mmol/L Anion Gap (5-15) MEQ/L BUN (7-17) mg/dL Creatinine (0.52-1.04) mg/dL Estimated GFR ML/MIN Glucose (74-106) mg/dL Lactic Acid 3.7 H (0.4-2.0) Calcium (8.4-10.2) mg/dL Total Bilirubin (0.2-1.3) mg/dL AST (14-36) U/L ALT (0-35) U/L Alkaline Phosphatase (38-126) U/L Serum Total Protein (6.3-8.2) g/dL Albumin (3.5-5.0) g/dL Urinalys Dipstick Clnc Urine Color (YELLOW) Urine Appearance (CLEAR) Urine pH (5-6) Ur Specific [place] (1.005-1.025) POC Urine Protein Conf (Negative) Urine Ketones (NEGATIVE) Urine Nitrite (NEGATIVE) Urine Bilirubin (NEGATIVE) Urine Urobilinogen (0-1) mg/dL Urine Leukocytes (NEGATIVE) Urine WBC (Auto) (0-5) /HPF Urine RBC (Auto) (0-2) /HPF U Epithel Cells (Auto) (FEW) /HPF Urine Bacteria (Auto) (NEGATIVE) /HPF Urine RBC (0-5) Cory/ul Urine Mucus (Auto) (NEGATIVE) /HPF Ur Culture Indicated? Urine Glucose (NEGATIVE) mg/dL Urine Opiates Level (NEGATIVE) Ur Methadone (NEGATIVE) Urine Barbiturates (NEGATIVE) Ur Phencyclidine (PCP) (NEGATIVE) Urine Amphetamine (NEGATIVE) U Benzodiazepine Level (NEGATIVE) Urine Cocaine (NEGATIVE) Urine Marijuana (THC) (NEGATIVE) Monoscreen NEGATIVE (Negative) Influenza Type A Ag NEGATIVE (NEGATIVE) Influenza Type B Ag NEGATIVE (NEGATIVE) RSV (PCR) NEGATIVE (Negative) SARS-CoV-2 (PCR) NEGATIVE (NEGATIVE) Group A Strep Antibody (NEGATIVE) 05/12/22 05/12/22 05/12/22 Range/Units 12:54 14:23 14:39 WBC (4.0-10.5) x10^3/uL RBC (4.1-5.4) x10^6/uL Hgb (12.0-16.0) g/dL Hct (35-47) % MCV (78-100) fL MCH (26-32) pg MCHC (32-36) g/dL RDW (11.5-14.0) % Plt Count (150-450) x10^3/uL MPV (7.5-11.0) fL Gran % (36.0-66.0) % Immature Gran % (Auto) (0.00-0.4) % Nucleat RBC Rel Count (0.00-0.1) % Eos # (Auto) (0-0.5) x10^3/uL Immature Gran # (Auto) (0.00-0.03) x10^3u/L Absolute Lymphs (auto) (1.0-4.6) x10^3/uL Absolute Monos (auto) (0.0-1.3) x10^3/uL Absolute Nucleated RBC (0.00-0.01) x10^3u/L Lymphocytes % (24.0-44.0) % Monocytes % (0.0-12.0) % Eosinophils % (0.00-5.0) % Basophils % (0.0-0.4) % Absolute Granulocytes (1.4-6.9) x10^3/uL Basophils # (0-0.4) x10^3/uL Sodium (137-145) mmol/L Potassium (3.5-5.1) mmol/L Chloride (98-107) mmol/L Carbon Dioxide (22-30) mmol/L Anion Gap (5-15) MEQ/L BUN (7-17) mg/dL Creatinine (0.52-1.04) mg/dL Estimated GFR ML/MIN Glucose (74-106) mg/dL Lactic Acid 1.0 (0.4-2.0) Calcium (8.4-10.2) mg/dL Total Bilirubin (0.2-1.3) mg/dL AST (14-36) U/L ALT (0-35) U/L Alkaline Phosphatase (38-126) U/L Serum Total Protein (6.3-8.2) g/dL Albumin (3.5-5.0) g/dL Urinalys Dipstick Clnc MAIN LAB Urine Color YELLOW (YELLOW) Urine Appearance CLEAR (CLEAR) Urine pH 7.0 (5-6) Ur Specific [place] 1.015 (1.005-1.025) POC Urine Protein Conf NEGATIVE (Negative) Urine Ketones MODERATE-40 (NEGATIVE) Urine Nitrite NEGATIVE (NEGATIVE) Urine Bilirubin NEGATIVE (NEGATIVE) Urine Urobilinogen 1 (0-1) mg/dL Urine Leukocytes NEGATIVE (NEGATIVE) Urine WBC (Auto) 3-5 (0-5) /HPF Urine RBC (Auto) 0-2 (0-2) /HPF U Epithel Cells (Auto) FEW (FEW) /HPF Urine Bacteria (Auto) RARE (NEGATIVE) /HPF Urine RBC NEGATIVE (0-5) Cory/ul Urine Mucus (Auto) SLIGHT (NEGATIVE) /HPF Ur Culture Indicated? NO Urine Glucose 100 (NEGATIVE) mg/dL Urine Opiates Level NEGATIVE (NEGATIVE) Ur Methadone NEGATIVE (NEGATIVE) Urine Barbiturates NEGATIVE (NEGATIVE) Ur Phencyclidine (PCP) NEGATIVE (NEGATIVE) Urine Amphetamine NEGATIVE (NEGATIVE) U Benzodiazepine Level NEGATIVE (NEGATIVE) Urine Cocaine NEGATIVE (NEGATIVE) Urine Marijuana (THC) NEGATIVE (NEGATIVE) Monoscreen (Negative) Influenza Type A Ag (NEGATIVE) Influenza Type B Ag (NEGATIVE) RSV (PCR) (Negative) SARS-CoV-2 (PCR) (NEGATIVE) Group A Strep Antibody (NEGATIVE) 05/13/22 05/13/22 05/13/22 Range/Units 04:44 04:44 04:44 WBC 6.8 (4.0-10.5) x10^3/uL RBC 3.55 L (4.1-5.4) x10^6/uL Hgb 11.6 L (12.0-16.0) g/dL Hct 34.2 L (35-47) % MCV 96.3 (78-100) fL MCH 32.7 H (26-32) pg MCHC 33.9 (32-36) g/dL RDW 12.9 (11.5-14.0) % Plt Count 160 (150-450) x10^3/uL MPV 12.0 H (7.5-11.0) fL Gran % 47.7 (36.0-66.0) % Immature Gran % (Auto) 0.1 (0.00-0.4) % Nucleat RBC Rel Count 0.0 (0.00-0.1) % Eos # (Auto) 0.12 (0-0.5) x10^3/uL Immature Gran # (Auto) 0.01 (0.00-0.03) x10^3u/L Absolute Lymphs (auto) 2.86 (1.0-4.6) x10^3/uL Absolute Monos (auto) 0.56 (0.0-1.3) x10^3/uL Absolute Nucleated RBC 0.00 (0.00-0.01) x10^3u/L Lymphocytes % 41.9 (24.0-44.0) % Monocytes % 8.2 (0.0-12.0) % Eosinophils % 1.8 (0.00-5.0) % Basophils % 0.3 (0.0-0.4) % Absolute Granulocytes 3.25 (1.4-6.9) x10^3/uL Basophils # 0.02 (0-0.4) x10^3/uL Sodium 140 (137-145) mmol/L Potassium 3.1 L (3.5-5.1) mmol/L Chloride 109 H (98-107) mmol/L Carbon Dioxide 26 (22-30) mmol/L Anion Gap 7.6 (5-15) MEQ/L BUN 8 (7-17) mg/dL Creatinine 0.55 (0.52-1.04) mg/dL Estimated GFR > 60.0 ML/MIN Glucose 94 (74-106) mg/dL Lactic Acid 1.2 (0.4-2.0) Calcium 8.7 (8.4-10.2) mg/dL Total Bilirubin 0.40 (0.2-1.3) mg/dL AST 20 (14-36) U/L ALT 16 (0-35) U/L Alkaline Phosphatase 82 (38-126) U/L Serum Total Protein 5.7 L (6.3-8.2) g/dL Albumin 3.0 L (3.5-5.0) g/dL Urinalys Dipstick Clnc Urine Color (YELLOW) Urine Appearance (CLEAR) Urine pH (5-6) Ur Specific [place] (1.005-1.025) POC Urine Protein Conf (Negative) Urine Ketones (NEGATIVE) Urine Nitrite (NEGATIVE) Urine Bilirubin (NEGATIVE) Urine Urobilinogen (0-1) mg/dL Urine Leukocytes (NEGATIVE) Urine WBC (Auto) (0-5) /HPF Urine RBC (Auto) (0-2) /HPF U Epithel Cells (Auto) (FEW) /HPF Urine Bacteria (Auto) (NEGATIVE) /HPF Urine RBC (0-5) Cory/ul Urine Mucus (Auto) (NEGATIVE) /HPF Ur Culture Indicated? Urine Glucose (NEGATIVE) mg/dL Urine Opiates Level (NEGATIVE) Ur Methadone (NEGATIVE) Urine Barbiturates (NEGATIVE) Ur Phencyclidine (PCP) (NEGATIVE) Urine Amphetamine (NEGATIVE) U Benzodiazepine Level (NEGATIVE) Urine Cocaine (NEGATIVE) Urine Marijuana (THC) (NEGATIVE) Monoscreen (Negative) Influenza Type A Ag (NEGATIVE) Influenza Type B Ag (NEGATIVE) RSV (PCR) (Negative) SARS-CoV-2 (PCR) (NEGATIVE) Group A Strep Antibody (NEGATIVE) Micro Results-Entire Visit: Accuchecks Date 05/12/22 Time 14:05 - Radiology Exams Ordered Rad Exams-Entire Visit: Radiology Procedures Category Date Time Status CHEST 1 VIEW (PORTABLE) Stat Exams 05/12/22 12:13 Completed HEAD WITHOUT CONTRAST [CT] Stat Exams 05/12/22 14:05 Completed - Discharge Disposition: Home, Self-Care Condition: Good Prescriptions: Continue Pregabalin [Lyrica 150Mg] 1 tab PO TID Duloxetine HCl 30 mg [Cymbalta 30 MG Capsule] 90 mg PO DAILY Solifenacin Succinate [Vesicare] 10 mg PO DAILY Trazodone HCl 50 mg [Desyrel 50 mg] 150 mg PO QHS Celecoxib [Celebrex] 200 mg PO DAILY Olanzapine 5 mg [zyPREXA 5MG TABLET] 5 mg PO DAILY Omeprazole 20 mg PO DAILY Buprenorphine HCl/Naloxone HCl [Buprenorphine-Nalox 8-2 mg Tab] 1 each SL TID Lisdexamfetamine Dimesylate [Vyvanse] 60 mg PO DAILY Linaclotide [Linzess] 145 mcg PO UD Pyridoxine HCl 100 mg [Vitamin B-6 (Pyridoxine) 100 MG] 100 mg PO BID Lisinopril/Hydrochlorothiazide [Zestoretic 20-12.5 mg Tablet] 1 each PO DAILY Buprenorphine [Butrans] 1 each TD WEEKLY Follow up with: CELESTINE STALLWORTH [Primary Care Provider] -
[2022-05-13] MEDS: celeBREX 100 MG PO SCH (09:42)
[2022-05-13] MEDS: zyPREXA 5MG TABLET PO SCH (09:42)
[2022-05-13] MEDS: Protonix 40MG Tablet PO SCH (09:42)
[2022-05-13] MEDS: LYRICA 150MG PO SCH ×2 (09:43→14:39)
[2022-05-13] MEDS: Cymbalta 30 MG Capsule PO SCH (09:43)
[2022-05-13] MEDS: Ditropan 5 MG PO SCH (09:43)
[2022-05-13] MEDS: Vitamin B-6 (Pyridoxine) 100 MG PO SCH (09:44)
[2022-05-13] MEDS: PATIENT OWN MEDICATION SL SCH ×2 (09:45→14:39)
[2022-05-13] MEDS: Zestril 20 MG*** 20 MG, hydroDIURIL 25 MG*** 12.5 MG PO SCH ×2 (09:57)
[2022-05-13] MEDS ORDERED: PATIENT OWN MEDICATION TOP SCH (10:00)
[2022-05-13] MEDS ORDERED: SOLIFENACIN SUCCINATE 10 MG PO SCH (10:00)
[2022-05-13] MEDS ORDERED: NON-FORMULARY ITEM (Celecoxib [Celebrex] 200 MG Capsule) PO SCH (10:00)
[2022-05-13] MEDS ORDERED: LISINOPRIL PO SCH (10:00)
[2022-05-13] MEDS ORDERED: NON-FORMULARY ITEM PO SCH (10:00)
[2022-05-13] MEDS ORDERED: [UNRECOGNIZED DRUG - OTHER] PO SCH (10:00)
[2022-05-13] MEDS ORDERED: NON-FORMULARY ITEM (Omeprazole [Omeprazole] 20 MG Tablet.Dr) PO SCH (10:00)
[2022-05-13] MEDS ORDERED: HYDROCHLOROTHIAZIDE PO SCH (10:00)
[2022-05-13] MEDS ORDERED: PATIENT OWN MEDICATION PO SCH (10:00)
[2022-05-13 10:06] LABS: Potassium 3.2 mmol/L (3.5-5.1)
[2022-05-13] MEDS ORDERED: Klor Con PO ONE (10:30)
[2022-05-13 11:56] VITALS: BP 135/83; PULSE 93; O2SAT 95
[2022-05-13 15:07] LABS: Potassium 3.9 mmol/L (3.5-5.1)
== END 2022-05-13 15:23 | disposition home or self-care (01) ==
LOC: ED 12:05 → MED SURG 15:05
PROVIDERS: ADMIT Family Medicine; ATTEND Family Medicine
DX: E86.0 Dehydration (principal); E87.6 Hypokalemia; E87.2 Acidosis; F11.90 Opioid use, unspecified, uncomplicated; R73.03 Prediabetes; I10 Essential (primary) hypertension; Z79.899 Other long term (current) drug therapy; Z20.828 Contact with and (suspected) exposure to other viral communicable diseases
CPT/HCPCS: 0241U; 36000; 36415; 70450; 71045; 80053; 80307; 81015; 83605; 83735; 84132; 85025; 86308; 87040; 87651; 93041; 94760; 96360; 96374; 99285; 96375; G0378; J2060; A9270-GY

== ENCOUNTER 2024-11-09 11:55 | Day surgery (SDC) | payer OTHER ==
[2024-11-09] MEDS ORDERED: Xylocaine-Mpf 2% 5 Ml Vial IJ ONE (11:56)
[2024-11-09 12:08] LABS: HCG URINE TEST NEGATIVE (NEGATIVE)
[2024-11-09] MEDS ORDERED: DIPRIVAN 200 MG/20 ML IV ONE (13:41)
--- NOTE | 2024-11-09 14:50 | XRAY ---
Indication: Bilateral L4-S1 MBB. Intraoperative fluoroscopy provided for 27 seconds. 3 digital spot images submitted for interpretation demonstrates posterior needle tips projecting over expected left and right L4-S1 nerve roots. Correlate with intraoperative findings/report. Incidental bilateral L3-L5 fusion hardware.
--- NOTE | 2024-11-09 15:00 | XRAY ---
27 seconds of fluoroscopy was used in surgery for a bilateral L4-S1 MBB.
== END 2024-11-09 14:22 | disposition home or self-care (01) ==
LOC: SDC-PAIN 11:55
PROVIDERS: ATTEND Psychiatry & Neurology Pain Medicine
DX: M47.816 Spondylosis without myelopathy or radiculopathy, lumbar region (principal)
CPT/HCPCS: 72020; 77002; 81025; J2704

== ENCOUNTER 2024-12-31 10:16 | Emergency (ER) | payer OTHER ==
[2024-12-31 10:27] VITALS: TEMP 98.2
[2024-12-31 11:05] LABS: Absolute Neutrophil Ct (ANC) 7.41 x10^3/uL (1.56-6.13); BASOPHIL % 0.4 % (0.1-1.2); Basophil (Absolute #) 0.04 x10^3/uL (0.01-0.08); Eosinophil % 1.3 % (0.7-5.8); Eosinophil (Absolute #) 0.12 x10^3/uL (0.04-0.36); Hematocrit 40.9 % (34.1-44.9); Hemoglobin 14.3 g/dL (11.2-15.7); IMMATURE GRAN # 0.05 x10^3u/L (0.001-0.031); IMMATURE GRAN % 0.5 % (0.001-0.429); Lymphocyte (Absolute #) 1.22 x10^3/uL (1.18-3.74); Lymphocytes % 13.2 % (19.3-51.7); Mean Cell Volume 90.7 fL (79.4-94.8); Mean Corpuscular Hemoglobin 31.7 pg (25.6-32.2); Mean Platelet Volume 11.1 fL (9.4-12.3); Monocyte (Absolute #) 0.41 x10^3/uL (0.24-0.86); Monocytes % 4.4 % (4.7-12.5); Neutrophil % 80.2 % (34.0-71.1); Platelet Count 217 x10^3/uL (182-369); Red Blood Count 4.51 x10^6/uL (3.93-5.22); Red Cell Distribution Width 12.9 % (11.7-14.4); White Blood Count 9.3 x10^3/uL (3.98-10.04)
--- NOTE | 2024-12-31 11:12 | ERPHSYRPT ---
- History of Present Illness Time Seen by Provider: 12/31/24 10:21 Historian: patient Exam Limitations: no limitations Patient Subjective Stated Complaint: C/O N/V for a few days. Indicates she has been "shaky and probably dehydrated" since sometime in November. Denies any pain. Triage Nursing Assessment: Patient arrived by ambulance. SHe is alert and oriented. No SOB. JIMENEZ WNL. Skin tone normal. NO active vomiting during assessment. Physician History: 54-year-old female with history of chronic back pain, hypertension is brought in the ER by EMS with complaints of nausea vomiting since yesterday with associated subjective feeling of fever chills, body aches, feeling weak fatigued tired and dehydrated. Patient reports no abdominal pain or cramping. No diarrhea. No known sick contact. Allergies/Adverse Reactions: No Known Drug Allergies Allergy (Verified 12/31/24 10:18) Home Medications: Pregabalin [Lyrica 150Mg] 1 tab PO TID 10/15/16 [History] Duloxetine HCl 30 mg [Cymbalta 30 MG Capsule] 60 mg PO DAILY 12/31/16 [History] Solifenacin Succinate [Vesicare] 10 mg PO DAILY 08/13/17 [History] Trazodone HCl 50 mg [Desyrel 50 mg] 50 mg PO QHS 12/27/17 [History] Celecoxib [Celebrex] 200 mg PO DAILY 09/18/20 [History] Buprenorphine HCl/Naloxone HCl [Buprenorphine-Nalox 8-2 mg Tab] 1 each SL TID 05/12/22 [History] Buprenorphine [Butrans] 1 each TD WEEKLY 05/12/22 [History] Linaclotide [Linzess] 145 mcg PO UD 05/12/22 [History] Lisdexamfetamine Dimesylate [Vyvanse] 70 mg PO DAILY 05/12/22 [History] Lisinopril/Hydrochlorothiazide [Zestoretic 20-12.5 mg Tablet] 1 each PO DAILY 05/12/22 [History] Olanzapine 5 mg [zyPREXA 5MG TABLET] 10 mg PO DAILY 05/12/22 [History] Omeprazole 20 mg PO DAILY 05/12/22 [History] Pyridoxine HCl 100 mg [Vitamin B-6 (Pyridoxine) 100 MG] 100 mg PO BID 05/12/22 [History] Atorvastatin Calcium 1 tab PO DAILY 12/31/24 [History] Buspirone HCl 5 mg [Buspar 5 mg] 10 mg PO DAILY 12/31/24 [History] Hx Tetanus, Diphtheria Vaccination/Date Given: Yes Hx Influenza Vaccination/Date Given: Yes Hx Pneumococcal Vaccination/Date Given: No Immunizations Up to Date: Yes Travel Risk - International Travel Have you traveled outside of the country in past 3 weeks: No - Emerging Infectious Disease Are you exhibiting symptoms associated with any current EIDs: Yes Symptoms: Vomitting - Review of Systems Constitutional: Fatigue Eyes: No Symptoms Ears, Nose, & Throat: No Symptoms Respiratory: No Symptoms Cardiac: No Symptoms Abdominal/Gastrointestinal: Nausea, Vomiting Genitourinary Symptoms: No Symptoms Musculoskeletal: Back Pain Skin: No Symptoms Neurological: No Symptoms Endocrine: No Symptoms Hematologic/Lymphatic: No Symptoms Immunological/Allergic: No Symptoms - Past Medical History Pertinent Past Medical History: Yes Neurological History: Migraines ENT History: No Pertinent History Cardiac History: Hypertension Respiratory History: No Pertinent History Endocrine Medical History: Diabetes Type II Musculoskeletal History: Arthritis, Degenerative Disk Disease, Osteoarthritis GI Medical History: GERD History: No Pertinent History Psycho-Social History: Anxiety, Attention Deficit Disorder, Depression, Other Female Reproductive Disorders: No Pertinent History Other Medical History: Hypokalemia, PTSD - Past Surgical History Past Surgical History: Yes Neuro Surgical History: No Pertinent History Cardiac: No Pertinent History Respiratory: No Pertinent History Gastrointestinal: No Pertinent History Genitourinary: No Pertinent History Musculoskeletal: Orthopedic Surgery Female Surgical History: Dilation & Curettage Other Surgical History: lumbar spinal fusion, synovial cyst removed. spinal repair of screws along with cement. states "have had about 6 colonoscopy with polyps", HX OF PEA during anesthesia. Sepsis post surgery once - Female History Hx Last Menstrual Period: 3 WEEKS AGO Hx Now: No - Social History Smoking Status: Current every day smoker How long have you smoked: 23 y.o. Exposure to second hand smoke: No Drug Use: none Patient Lives Alone: Yes - Social Determinants of Health Will the patient participate in the screening: Declined to provide - Nursing Vital Signs Nursing Vital Signs: Initial Vital Signs Pulse Rate 78 12/31/24 10:18 Respiratory Rate 13 12/31/24 10:18 Blood Pressure 142/82 12/31/24 10:18 O2 Sat by Pulse Oximetry 97 12/31/24 10:18 Pain Scale Pain Intensity 0 - Physical Exam General Appearance: no apparent distress, alert Eye Exam: PERRL/EOMI Ears, Nose, Throat Exam: normal ENT inspection Neck Exam: normal inspection, non-tender, supple, full range of motion Respiratory Exam: normal breath sounds, lungs clear Cardiovascular Exam: regular rate/rhythm, normal heart sounds Gastrointestinal/Abdomen Exam: soft, normal bowel sounds, No tenderness, No distention, No guarding Back Exam: normal inspection Extremity Exam: normal inspection, normal range of motion Neurologic Exam: alert, oriented x 3, cooperative Skin Exam: normal color SpO2 Interpretation: normal SpO2: 99 O2 Delivery: Room Air Ordered Tests: Active Orders 24 hr Category Date Time Status IV Insertion STAT Care 12/31/24 10:36 Active NPO (ED) STAT Care 12/31/24 10:36 Active CBC W DIFF Stat Lab 12/31/24 10:50 Completed CMP Stat Lab 12/31/24 10:50 Completed LIPASE Stat Lab 12/31/24 10:50 Completed UA W/RFX UR CULTURE Stat Lab 12/31/24 10:37 Ordered Medication Summary Discontinued Medications Generic Name Dose Route Start Last Admin Trade Name Freq PRN Reason Stop Dose Admin Sodium Chloride 1,000 mls @ 999 mls/hr 12/31/24 10:36 12/31/24 11:29 Sodium Chloride 0.9% 1000 Ml IV 12/31/24 11:36 150 mls/hr .Q1H1M STA Administration Sodium Chloride Confirm 12/31/24 11:28 Sodium Chloride 0.9% 1000 Ml Administered 12/31/24 11:29 Dose 1,000 mls @ ud .ROUTE .STK-MED ONE Ondansetron HCl 4 mg 12/31/24 10:36 12/31/24 11:29 Ondansetron Hcl 4 Mg/2 Ml Vial IV 12/31/24 10:37 4 mg STAT ONE Administration Ondansetron HCl Confirm 12/31/24 11:28 Ondansetron Hcl 4 Mg/2 Ml Vial Administered 12/31/24 11:29 Dose 4 mg .ROUTE .STK-MED ONE Lab/Rad Data: Laboratory Result Diagrams 12/31/24 10:50 12/31/24 10:50 Laboratory Results 12/31/24 12/31/24 12/31/24 Range/Units Unknown 10:50 10:50 WBC 9.3 (3.98-10.04) x10^3/uL RBC 4.51 (3.93-5.22) x10^6/uL Hgb 14.3 (11.2-15.7) g/dL Hct 40.9 (34.1-44.9) % MCV 90.7 (79.4-94.8) fL MCH 31.7 (25.6-32.2) pg MCHC 35.0 (32.2-35.5) g/dL RDW 12.9 (11.7-14.4) % Plt Count 217 (182-369) x10^3/uL MPV 11.1 (9.4-12.3) fL Gran % 80.2 H (34.0-71.1) % Immature Gran % (Auto) 0.5 H (0.001-0.429) % Nucleat RBC Rel Count 0.0 (0.00-0.2) % Eos # (Auto) 0.12 (0.04-0.36) x10^3/uL Immature Gran # (Auto) 0.05 H (0.001-0.031) x10^3u/L Absolute Lymphs (auto) 1.22 (1.18-3.74) x10^3/uL Absolute Monos (auto) 0.41 (0.24-0.86) x10^3/uL Absolute Nucleated RBC 0.00 (0.00-0.012) x10^3u/L Lymphocytes % 13.2 L (19.3-51.7) % Monocytes % 4.4 L (4.7-12.5) % Eosinophils % 1.3 (0.7-5.8) % Basophils % 0.4 (0.1-1.2) % Absolute Granulocytes 7.41 H (1.56-6.13) x10^3/uL Basophils # 0.04 (0.01-0.08) x10^3/uL Sodium 138 (135-145) mmol/L Potassium 3.5 (3.5-5.1) mmol/L Chloride 101 (98-107) mmol/L Carbon Dioxide 29 (22-30) mmol/L Anion Gap 11.9 (5-15) MEQ/L BUN 11 (7-17) mg/dL Creatinine 0.74 (0.52-1.04) mg/dL Estimated GFR 97.3 ML/MIN Glucose 96 (74-106) mg/dL Calcium 9.5 (8.4-10.2) mg/dL Total Bilirubin 0.60 (0.2-1.3) mg/dL AST 34 (14-36) U/L ALT 25 (0-35) U/L Alkaline Phosphatase 133 H (38-126) U/L Serum Total Protein 7.4 (6.3-8.2) g/dL Albumin 4.6 (3.5-5.0) g/dL Lipase 59 (23-300) U/L Influenza Type A Ag NEGATIVE (NEGATIVE) Influenza Type B Ag NEGATIVE (NEGATIVE) RSV (PCR) NEGATIVE (NEGATIVE) SARS-CoV-2 (PCR) NEGATIVE (NEGATIVE) - Progress Progress: improved Progress Note: 12/31/24 13:12 54-year-old female presented in the ER with planes of nausea and vomiting. Patient does not have any abdominal tenderness send normal active bowel sounds. Lungs clear to auscultation, she is given fluids and symptomatic treatment with Zofran, on reevaluation she is feeling better. No peritoneal signs on repeated eval and patient has no vomiting and nausea improved while in the ER and she prefers to go home. I do not think patient needs imaging. Workup showed normal white count, unremarkable chemistries and negative COVID flu. I believe patient's symptoms are viral etiology, recommended supportive care and outpatient follow-up. Discussed signs symptoms of worsening needing return to ER which she seems understanding. Stable for discharge. Counseled pt/family regarding: lab results, diagnosis, need for follow-up Medical Desision Making - Independent Historian Additional History obtained from: Cabin Service Agent/EMT - Diagnostic Testing Diagnostic test were ordered, analyzed, and reviewed by me: Yes - Risk of complications The pt has a mod risk of morbidity or mortality based on: Need for prescription drug management - Departure Departure Disposition: Home Clinical Impression: Nausea & vomiting, Viral syndrome Condition: Stable Critical Care Time: No Referrals: JAMIE MORALES MD [Primary Care Provider] - Follow up with PCP 1 day Instructions: Nausea and vomiting in adults - ED discharge instructions Additional Instructions: Drink plenty of fluids. Take Tylenol/Zofran as needed. Follow-up with primary care for reevaluation. Return to ER for intractable vomiting or if develop abdominal pain/fever chills etc. Prescriptions: Ondansetron ODT 4 MG [Zofran Odt 4 mg] 1 ea PO QIDPRN PRN #7 tablet PRN Reason: n/v
[2024-12-31] MEDS ORDERED: Zofran 4 MG/2 ML VIAL ONE (11:28)
[2024-12-31] MEDS ORDERED: Sodium Chloride 0.9% 1000 ML 1,000 ML ONE (11:28)
[2024-12-31] MEDS: Zofran 4 MG/2 ML VIAL IV ONE (11:29)
[2024-12-31] MEDS: Sodium Chloride 0.9% 1000 ML 1,000 ML IV STA (11:29)
[2024-12-31 11:52] LABS: ALBUMIN 4.6 g/dL (3.5-5.0); ANION GAP 11.9 MEQ/L (5-15); BILIRUBIN,TOTAL 0.6 mg/dL (0.2-1.3); Calcium 9.5 mg/dL (8.4-10.2); Creatinine 1 0.74 mg/dL (0.52-1.04); EST GLOMERULAR FILTRATION RATE 97.3 ML/MIN; Potassium 3.5 mmol/L (3.5-5.1); Total Protein 7.4 g/dL (6.3-8.2)
[2024-12-31 12:02] VITALS: PULSE 92
[2024-12-31 12:12] LABS: INFLUENZA A NEGATIVE (NEGATIVE); INFLUENZA B NEGATIVE (NEGATIVE); RESPIRATORY SYNCTIAL VIRUS NEGATIVE (NEGATIVE); SARS-CoV-2 Xpert Express NEGATIVE (NEGATIVE)
[2024-12-31 13:13] VITALS: RESP 19
[2024-12-31 13:15] VITALS: O2SAT 99
[2024-12-31 13:27] VITALS: BP 122/79
== END 2024-12-31 13:27 | disposition home or self-care (01) ==
LOC: ED 10:16
DX: B34.9 Viral infection, unspecified (principal); R11.2 Nausea with vomiting, unspecified; M79.10 Myalgia, unspecified site; R53.83 Other fatigue; I10 Essential (primary) hypertension; E11.9 Type 2 diabetes mellitus without complications; Z79.899 Other long term (current) drug therapy; Z72.0 Tobacco use
CPT/HCPCS: 0241U; 36415; 80053; 83690; 85025; 96374; 99284; 99283; J2405

== ENCOUNTER 2025-09-03 11:17 | Emergency (ER) | payer OTHER ==
[2025-09-03 11:26] VITALS: TEMP 98.5
--- NOTE | 2025-09-03 11:29 | ERPHSYRPT ---
- History of Present Illness Time Seen by Provider: 09/03/25 11:28 Source: patient Exam Limitations: no limitations Patient Subjective Stated Complaint: out of lyrica starting Thursday Triage Nursing Assessment: . Physician History: Patient reports withdrawal symptoms after running out of her Lyrica . She takes 150 mg 3 times a day. Timing/Duration: day(s) (3) Severity: moderate Associated Symptoms: nausea, malaise Allergies/Adverse Reactions: No Known Drug Allergies Allergy (Verified 09/03/25 11:34) Home Medications: Duloxetine HCl 30 mg [Cymbalta 30 MG Capsule] 90 mg PO DAILY 12/31/16 [History] Solifenacin Succinate [Vesicare] 10 mg PO DAILY 08/13/17 [History] Trazodone HCl 50 mg [Desyrel 50 mg] 50 mg PO QHS 12/27/17 [History] Celecoxib [Celebrex] 200 mg PO DAILY 09/18/20 [History] Linaclotide [Linzess] 1 - 2 tab PO DAILY 05/12/22 [History] Lisinopril/Hydrochlorothiazide [Zestoretic 20-12.5 mg Tablet] 1 each PO DAILY 05/12/22 [History] Olanzapine 5 mg [zyPREXA 5MG TABLET] 10 mg PO DAILY 05/12/22 [History] Omeprazole 20 mg PO DAILY 05/12/22 [History] Pyridoxine HCl 100 mg [Vitamin B-6 (Pyridoxine) 100 MG] 100 mg PO BID 05/12/22 [History] Atorvastatin Calcium 20 mg PO DAILY 12/31/24 [History] Buspirone HCl 5 mg [Buspar 5 mg] 10 mg PO DAILY 12/31/24 [History] Buprenorphine HCl/Naloxone HCl [Zubsolv 5.7-1.4 mg Tablet Sl] 3 tab SL DAILY 09/03/25 [History] Dextroamphetamine/Amphetamine [Adderall Xr 20 mg Capsule] 40 mg PO DAILY 08/23 01/17 [History] Hx Tetanus, Diphtheria Vaccination/Date Given: Yes Hx Influenza Vaccination/Date Given: Yes Hx Pneumococcal Vaccination/Date Given: No Travel Risk - International Travel Have you traveled outside of the country in past 3 weeks: No - Emerging Infectious Disease Are you exhibiting symptoms associated with any current EIDs: Yes Symptoms: Vomitting - Review of Systems All Other Systems: Reviewed and Negative - Past Medical History Pertinent Past Medical History: Yes Neurological History: Migraines ENT History: No Pertinent History Cardiac History: Hypertension Respiratory History: No Pertinent History Endocrine Medical History: Diabetes Type II Musculoskeletal History: Arthritis, Degenerative Disk Disease, Osteoarthritis GI Medical History: GERD History: No Pertinent History Psycho-Social History: Anxiety, Attention Deficit Disorder, Depression, Other Female Reproductive Disorders: No Pertinent History Other Medical History: Hypokalemia, PTSD - Past Surgical History Past Surgical History: Yes Neuro Surgical History: No Pertinent History Cardiac: No Pertinent History Respiratory: No Pertinent History Gastrointestinal: No Pertinent History Genitourinary: No Pertinent History Musculoskeletal: Orthopedic Surgery Female Surgical History: Dilation & Curettage Other Surgical History: lumbar spinal fusion, synovial cyst removed. spinal repair of screws along with cement. states "have had about 6 colonoscopy with polyps", HX OF PEA during anesthesia. Sepsis post surgery once - Female History Hx Last Menstrual Period: no longer has periods Hx Now: No - Social History Smoking Status: Current every day smoker Exposure to second hand smoke: No Drug Use: none - Social Determinants of Health Will the patient participate in the screening: Declined to provide - Nursing Vital Signs Nursing Vital Signs: Initial Vital Signs Temperature 98.5 F 09/03/25 11:20 Pulse Rate 104 H 09/03/25 11:20 Respiratory Rate 14 09/03/25 11:20 Blood Pressure 150/99 09/03/25 11:20 O2 Sat by Pulse Oximetry 94 L 09/03/25 11:20 Pain Scale Pain Intensity 2 - Physical Exam General Appearance: no apparent distress Respiratory Exam: normal breath sounds, lungs clear, airway intact, No respiratory distress Cardiovascular Exam: tachycardia, capillary refill <2 sec, edema Neurologic Exam: alert, oriented x 3, cooperative Skin Exam: normal color, warm, dry, No rash SpO2 Interpretation: normal SpO2: 94 O2 Delivery: Room Air - Course Nursing assessment & vital signs reviewed: Yes Ordered Tests: Medication Summary Discontinued Medications Generic Name Dose Route Start Last Admin Trade Name Freq PRN Reason Stop Dose Admin Pregabalin 150 mg 09/03/25 11:41 09/03/25 12:00 Pregabalin 150 Mg Capsule PO 09/03/25 11:42 150 mg STAT ONE Administration Pregabalin 150 mg 09/03/25 15:00 09/03/25 12:01 Pregabalin 150 Mg Capsule PO 10/03/25 14:59 150 mg TID JEEVAN Administration - Progress Progress Note: Patient given 150 mg of Lyrica which is her standard dose which she takes 3 times daily. 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 Counseled pt/family regarding: diagnosis Medical Desision Making - Diagnostic Testing Diagnostic test were ordered, analyzed, and reviewed by me: No - Risk of complications The pt has a mod risk of morbidity or mortality based on: Need for prescription drug management - Departure Departure Disposition: Home Clinical Impression: Medication withdrawal Condition: Stable Critical Care Time: No Referrals: JAMIE MORALES MD [Primary Care Provider, [facility]] - Follow up/PCP as directed
[2025-09-03] MEDS: LYRICA 150MG PO ONE (12:00)
[2025-09-03] MEDS: LYRICA 150MG PO SCH (12:01)
[2025-09-03 12:23] VITALS: BP 106/66; PULSE 102; RESP 18
[2025-09-03 17:26] VITALS: O2SAT 94
== END 2025-09-03 12:30 | disposition home or self-care (01) ==
LOC: ED 11:17
DX: F19.239 Other psychoactive substance dependence with withdrawal, unspecified (principal); I10 Essential (primary) hypertension; E11.9 Type 2 diabetes mellitus without complications; Z79.891 Long term (current) use of opiate analgesic; Z79.899 Other long term (current) drug therapy; Z72.0 Tobacco use